=== PATIENT | female | born 1945 | race Caucasian/White ===

== ENCOUNTER 2016-06-02 12:18 | Inpatient (IN) | payer MEDICARE, BC ==
[~2016-06-02] VITALS: Ht 172.7 cm; Wt 81.8 kg
[~2016-06-02 12:18] MED LIST: AMBIEN10 MG PO; CELEXA20 MG PO; COZAAR50 MG PO; DILANTIN100 MG PO; FOLIC ACID1 MG PO; JANUMET XR 50-1 EACH PO; LEVOXYL125 MCG PO; MEDROL DOSE PACK4 MG PO; METHOTREXATE2.5 MG PO
[2016-06-02 13:14] LABS: BASOPHILS 0.2 % (0.0-2.0); EOSINOPHILS 1.9 % (0-7); HEMATOCRIT 40.2 % (36.0-48.0); HEMOGLOBIN 13.7 g/dL (12-16); IMMATURE GRANULOCYTES 0.3 % (0-5); LYMPHOCYTES 10.4 % (15-50); MCH 30.1 pg (26.0-34.0); MCHC 34.1 g/dL (31.0-37.0); MCV 88.4 fL (80.0-100.0); MEAN PLATELET VOLUME 11.8 fL (7.4-10.4); MONOCYTES 8.8 % (2-11); NEUTROPHILS 78.4 % (40-80); RBC 4.55 10x6/uL (4.00-5.40); RDW 15.2 % (11.5-14.5); WBC 11.8 10x3/uL (4.8-10.8)
[2016-06-02 13:14] LABS: UDS - AMPHET NEGATIVE QUAL (NEGATIVE); UDS - BARB NEGATIVE QUAL (NEGATIVE); UDS - BENZO NEGATIVE QUAL (NEGATIVE); UDS - COCAINE NEGATIVE QUAL (NEGATIVE); UDS - METH NEGATIVE QUAL (NEGATIVE); UDS - OPIATE NEGATIVE QUAL (NEGATIVE); UDS - PCP NEGATIVE QUAL (NEGATIVE); UDS - THC NEGATIVE QUAL (NEGATIVE)
[2016-06-02 13:30] LABS: ALBUMIN 3.9 g/dL (3.4-5.0); ALKALINE PHOSPHATASE 104 U/L (46-116); ALT (SGPT) 35 U/L (10-68); BILIRUBIN - TOTAL 0.49 mg/dL (0.2-1.3); CALC OSMOLALITY 288 mosm/kg (275-300); CALCIUM 9.1 mg/dL (8.5-10.1); CARBON DIOXIDE 26.2 mmol/L (21.0-32.0); CHLORIDE - SERUM 103 mmol/L (98-107); CREATININE - SERUM 1.8 mg/dL (0.6-1.3); GLUCOSE 209 mg/dL (74-106); PLATELET COUNT 193 10x3/uL (130-400); POTASSIUM - SERUM 4.2 mmol/L (3.5-5.1); PROTEIN - SERUM 8.1 g/dL (6.4-8.2); SODIUM 139 mmol/L (136-145); UREA NITROGEN 27 mg/dL (7-18); eGFR NON AFRICAN AMERICAN 29 mL/min (90-120)
[2016-06-02 13:31] LABS: ALCOHOL - BLOOD (MEDICAL) < 3.0 mg/dL (0.0-10.0)
[2016-06-02 13:42] LABS: APPEARANCE CLEAR (CLEAR); BILIRUBIN NEGATIVE (NEGATIVE); COLOR YELLOW (YELLOW); GLUCOSE 100 mg/dL (NEGATIVE); KETONE NEGATIVE (NEGATIVE); LEUKOCYTE ESTERASE 1+ (NEGATIVE); NITRITE NEGATIVE (NEGATIVE); PROTEIN TRACE mg/dL (NEGATIVE); UROBILINOGEN NORMAL (NORMAL); WHITE CELLS - URINE 25-50 /hpf (0-5)
[2016-06-02 13:43] LABS: BACTERIA FEW /hpf (NONE SEEN); EPITHELIAL CELLS 0-5 /hpf (0-5)
--- NOTE | 2016-06-02 16:48 | NUR ---
MRI CHANGED TO A WITHOUT DUE TO GFR [address] SAVAGE.
--- NOTE | 2016-06-02 17:15 | NUR ---
PATIENT RECEIVED TO FLOOR VIA WHEELCHAIR. PATIENT ALERT IN BED. CONFUSED TO TIME AND SITUATION. AT BEDSIDE. YELLOW FALL RISK BAND PLACED ON PATIENT. SIDE RAILS UP X2. BED IN LOW POSITION. CALL LIGHT IN REACH. MARY ALARM ON. TELEMETRY PLACED ON PATIENT. MAINTENANCE DIRECTOR REPORTS 76 NSR
--- NOTE | 2016-06-02 17:20 | NUR ---
UNSURE OF WHAT CURRENT MEDICATIONS PATIENT TAKES. STATES HE GAVE HER BOTTLES TO THE ER. INCOMPLETE LIST IN ER RECORD. ASKED TO PLEASE BRING BOTTLES AT HIS CONVIENCE SO WE COULD GET A COMPLETE LIST. STATES UNDERSTANDING
[2016-06-02 17:21] VITALS: BP 153/63; Ht 172.7 cm; Wt 81.8 kg
--- NOTE | 2016-06-02 18:24 | NUR ---
ALERT IN BED VISITING WITH FAMILY. RESPIRATIONS EVEN AND UNLABORED. IVF INITIATED PER ORDER. ACCU CHECK 163. INSULIN PER SLIDING SCALE. DENIES NEEDS. SIDE RAILS UP X2. BED IN LOW POSITION. CALL LIGHT IN REACH. MARY ALARM ON.
--- NOTE | 2016-06-02 20:00 | NUR ---
REC'D IN BED WITH EYES CLOSED EASILY TO AROUSED WHEN NAME IS CALLED. RESP EVEN AND UNLABORED WITH NO DISTRESS NOTED. NO C/O NOTED OR VOICED. C/L IN REACH AT BEDSIDE.
[2016-06-02 22:19] VITALS: BP 136/62
--- NOTE | 2016-06-03 01:38 | NUR ---
WAS INFORMED BY LAB THAT ORDERS FOR RAPID INFLUENZA AND URINALYSIS NEED TO BE RE-ORDERS FOR THE FLOOR INSTEAD OF ER. ORDERS WAS CHANGES AT THIS TIME. C/L IN REACH AT BEDSIDE.
--- NOTE | 2016-06-03 02:07 | NUR ---
EYES CLOSED RESPIRATIONS WITH EASE AND UNLABORED. SR UP X2 CALL LIGHT WITHINREACH.
[2016-06-03 03:29] VITALS: BP 141/57
[2016-06-03 05:26] LABS: BASOPHILS 0.1 % (0.0-2.0); EOSINOPHILS 2.4 % (0-7); HEMATOCRIT 36.5 % (36.0-48.0); HEMOGLOBIN 12.3 g/dL (12-16); IMMATURE GRANULOCYTES 0.1 % (0-5); LYMPHOCYTES 11.1 % (15-50); MCH 29.6 pg (26.0-34.0); MCHC 33.7 g/dL (31.0-37.0); MEAN PLATELET VOLUME 11.2 fL (7.4-10.4); MONOCYTES 10.5 % (2-11); NEUTROPHILS 75.8 % (40-80); PLATELET COUNT 165 10x3/uL (130-400); RBC 4.15 10x6/uL (4.00-5.40); RDW 15.5 % (11.5-14.5)
[2016-06-03 05:31] LABS: WBC 8.4 10x3/uL (4.8-10.8)
[2016-06-03 06:15] LABS: ANION GAP 22.4 mmol/L (8-16); CALCIUM 8.6 mg/dL (8.5-10.1); CARBON DIOXIDE 24.6 mmol/L (21.0-32.0); CREATININE - SERUM 1.9 mg/dL (0.6-1.3)
[2016-06-03] MEDS ORDERED: PREMARIN45 GM VG (07:44)
[2016-06-03] MEDS ORDERED: PROTONIX40 MG PO (07:44)
[2016-06-03] MEDS ORDERED: RELAFEN500 MG PO (07:45)
[2016-06-03] MEDS ORDERED: JANUVIA100 MG PO (07:46)
[2016-06-03] MEDS ORDERED: [UNRECOGNIZED DRUG - OTHER] PO (07:47)
[2016-06-03 07:52] VITALS: BP 135/56
[2016-06-03 08:53] LABS: ERYTHROCYTE SEDIMENTATION RATE 10 mm/hr (0-30)
--- NOTE | 2016-06-03 09:35 | NUR ---
NOTIFIED DR. SANCHEZ UNABLE TO DO CTA CREATNINE 1.9. NO NEW ORDERS. CALL LIGHT WITHIN REACH.
[2016-06-03 11:23] VITALS: BP 123/50
--- NOTE | 2016-06-03 12:30 | NUR ---
PATIENT GETTING US AT THIS TIME. NO COMPLAINTS. FAMILY AT BEDSIDE. CALL LIGHT WITHIN REACH.
[2016-06-03 14:30] LABS: APPEARANCE HAZY (CLEAR); BILIRUBIN NEGATIVE (NEGATIVE); COLOR YELLOW (YELLOW); GLUCOSE NEGATIVE (NEGATIVE); KETONE NEGATIVE (NEGATIVE); LEUKOCYTE ESTERASE 1+ (NEGATIVE); NITRITE NEGATIVE (NEGATIVE); PROTEIN NEGATIVE (NEGATIVE); SPECIFIC GRAVITY 1.015 (1.005-1.020); UROBILINOGEN NORMAL (NORMAL)
[2016-06-03 14:31] LABS: BACTERIA FEW /hpf (NONE SEEN); EPITHELIAL CELLS 0-5 /hpf (0-5); MUCUS <1+ /lpf (NONE SEEN)
[2016-06-03 16:17] VITALS: BP 152/65
--- NOTE | 2016-06-03 18:33 | NUR ---
PATIENT SITTING UP IN BED WITH NO COMPLAINTS AT THIS TIME. IV INTACT. BED ALARM ON. CALL LIGHT WITHIN REACH.
[2016-06-03 19:00] VITALS: BP 139/62
--- NOTE | 2016-06-03 20:44 | NUR ---
PATIENT RESTING IN BED. ALERT AND ORIENTED. NO SIGNS OF DISTRESS NOTED. NO CONFUSION AT THIS TIME. SCHEDULED MEDS GIVEN. SHIFT ASSESSMENT COMPLETED. DENIES ANY NEEDS AT THIS TIME. BED LOW. CALL LIGHT IN REACH
[2016-06-04] VITALS: BP 159/62
[2016-06-04 04:00] VITALS: BP 148/67
--- NOTE | 2016-06-04 04:00 | NUR ---
PATIENT SLEEPING WITH NO DISTRESS NOTED. AGREE WITH BRICKLAYER SUPERVISOR ASSESSMENT.
[2016-06-04 04:23] LABS: BASOPHILS 0.2 % (0.0-2.0); EOSINOPHILS 3.9 % (0-7); HEMATOCRIT 35.5 % (36.0-48.0); HEMOGLOBIN 11.9 g/dL (12-16); IMMATURE GRANULOCYTES 0.3 % (0-5); LYMPHOCYTES 18.2 % (15-50); MCH 29.3 pg (26.0-34.0); MCHC 33.5 g/dL (31.0-37.0); MCV 87.4 fL (80.0-100.0); MEAN PLATELET VOLUME 10.6 fL (7.4-10.4); MONOCYTES 20.6 % (2-11); NEUTROPHILS 56.8 % (40-80); PLATELET COUNT 154 10x3/uL (130-400); RBC 4.06 10x6/uL (4.00-5.40); RDW 15.2 % (11.5-14.5)
[2016-06-04 04:24] LABS: WBC 5.8 10x3/uL (4.8-10.8)
[2016-06-04 04:37] LABS: ALBUMIN 3.3 g/dL (3.4-5.0); BILIRUBIN - TOTAL 0.45 mg/dL (0.2-1.3); CALCIUM 8.5 mg/dL (8.5-10.1); CARBON DIOXIDE 26.7 mmol/L (21.0-32.0); CREATININE - SERUM 1.5 mg/dL (0.6-1.3); POTASSIUM - SERUM 3.7 mmol/L (3.5-5.1); PROTEIN - SERUM 7.1 g/dL (6.4-8.2)
--- NOTE | 2016-06-04 07:00 | NUR ---
REPORT RECIEVED ASSUMED CARE. PATIENT IN BED WITH IV INTACT. NO COMPLAINTS. CALL LIGHT WITHIN REACH.
[2016-06-04 08:05] VITALS: BP 182/76
[2016-06-04 12:15] VITALS: BP 195/84
--- NOTE | 2016-06-04 12:27 | NUR ---
Patient Name: RADHA PABLO Admission Status: ER Accout number: [id number] Admission Date: 06-03-2016 : 1943 Admission Diagnosis: Attending: ROEL Current LOS: 1 Anticipated DC Date: 06-06-2016 Planned Disposition: Home or Self Care Primary Insurance: MEDICARE A & B Discharge Planning Comments: CM MET WITH PATIENT AND SPOUSE (DUANE) REGARDING D/C NEEDS AND PLANS. PATIENT STATED SHE LIVES WITH HER AND HE WILL DRIVE HER HOME AT DISCHARGE. PATIENT STATED THERE ARE 5 STEPS W/RAILS TO ENTER HOME AND NO STAIRS INSIDE. PATIENTS PCP IS DR. RAHMAN AND PHARMACY IS [facility] [address]. PATIENT STATED SHE IS INDEPENDENT WITH HER CARE AND HAS A WALKER, CANE, AND GLUCOMETER (CKS. DAILY) AT HOME. PATIENT HAS NOT HAD HOME HEALTH AND STATED SHE DOES NOT NEED IT AT DISCHARGE. CM WILL CONTINUE TO FOLLOW PATIENT WITH DISCHARGE NEEDS AND PLANS. PCP DR. MARIE [facility]IR[facility]AND [address] DUANE (SPOUSE) [phone] Radio Program Checker: Margret Abraham Is the patient Alert and Oriented? Yes 0 * How many steps to enter\exit or inside your home? 5 W/RAILS 0 * PCP DR. SANCHEZ 0 * Pharmacy [facility] [address] 0 * Preadmission Environment Home with Family 0 * ADLs Independent 0 * Equipment Cane Glucometer Walker 0 * List name and contact numbers for known caregivers / representatives who currently or will assist patient after discharge: DUANE (SPOUSE) [phone] 0 * Community resources currently utilized None 0 * Additional services required to return to the preadmission environment? Yes 0 * Can the patient safely return to the preadmission environment? Yes 0 * Has this patient been hospitalized within the prior 30 days at any hospital? No 0 Grand Total: 0
--- NOTE | 2016-06-04 14:07 | NUR ---
OT NOTE: PERFORMED BED MOB WITH SPV; TRANSFERS WITH SPV; SET UP WITH FEEDING AND DONNING SOCKS. PT WANTS TO GO HOME BENJI. PT DOING WELL; REPORTS THAT HER WILL BE PICKING HER UP
--- NOTE | 2016-06-04 15:30 | NUR ---
PATIENT IV LEAKING. REMOVED AT THIS TIME WITH CATH TIP INTACT. PATIENT REQUESTING TO LEAVE OUT FOR NOW SINCE IV ABX ARE NOW PO. EXPLAINED TO PATIENT I WOULD LEAVE OUT UNLESS NEEDED FOR SOME OTHER MEDS. VERBALIZED UNDERSTANDING. CALL LIGHT WITHIN REACH. PATIENT DRINKING PLENTY OF FLUIDS AND EATING OK.
[2016-06-04 16:01] VITALS: BP 169/75
--- NOTE | 2016-06-04 18:32 | NUR ---
OT NOTE: PT COMPLETED DYNAMIC SITTING BALANCE WITH GROSS MOTOR AXS. PT COMPLETED BUE AROM EXS IN ALL PLANES OF MOTION. PT COMPLETED SIMPLE GROOMING TASK WITH SET UP. THANK YOU, EVA MELENDEZ/John
--- NOTE | 2016-06-04 18:55 | NUR ---
PATIENT IN BED WITH NO COMPLAINTS AT THIS TIME. BA ON. CALL LIGHT WITHIN REACH.
--- NOTE | 2016-06-04 19:00 | NUR ---
PATIENT IN BED WATCHING TV. HOB 30 DEGREES. AAOX4. RR EVEN AND UNLABORED. 0 S/S OF DISTRESS. DENIES ANY PAIN. MARY ALARM ON. SRX2. BED LOW. CALL LIGHT WITHIN REACH.
[2016-06-04 20:00] VITALS: BP 184/66
--- NOTE | 2016-06-04 22:40 | NUR ---
ASSESSMENT COMPLETE. NIGHTTIME MEDS GIVEN. PREMARIN HELD BECAUSE PATIENT STATES SHE ONLY USES IT ONCE OR TWICE A MONTH. NO OTHER NEEDS AT THIS TIME.
[2016-06-05] VITALS: BP 150/60
--- NOTE | 2016-06-05 03:00 | NUR ---
PATIENT SLEEPING WITH NO DISTRESS NOTED. CALL LIGHT WITHIN REACH.
[2016-06-05 04:00] VITALS: BP 154/73
--- NOTE | 2016-06-05 08:02 | HP ---
PATIENT: RADHA PABLO MEDICAL RECORD: [id number] ACCOUNT: [id number] LOCATION:D.MS [id number] : 43 ADMISSION DATE: 06/03/16 HISTORY AND PHYSICAL EXAMINATION HISTORY OF PRESENT ILLNESS: A 70-year-old female presented to the Emergency Room with confusion, word searching, headache. She has a history of a brain bleed. She developed symptoms last night with word searching. Woke up this morning, had symptoms persisting. No falls, no recent trauma reported. PAST SURGICAL HISTORY: Colonoscopy in 2009, hysterectomy in 1978, history of 4 pregnancies, 3 deliveries. PAST MEDICAL HISTORY: Significant for anemia, arthritis, back pain, easy bruising or bleeding. Prior blood transfusions, type 2 diabetes, hypertension, hyperlipidemia, hypothyroidism, insomnia, and chronic kidney disease. SOCIAL HISTORY: Denies alcohol, admits significant caffeine use. Former smoker, quit in 1999, was a 5-jzgw-a-day smoker, retired hairdresser, 10th grade education, . FAMILY HISTORY: Son with substance abuse, mother with hypertension, sister with hypertension, brother with heart disease, daughter with migraines, mother with CHF. REVIEW OF SYSTEMS: CONSTITUTIONAL: No acute change in weight or appetite. HEENT: No cephalgia, visual changes, tinnitus, epistaxis or dysphagia. CARDIOVASCULAR: Denies chest pain or palpitations. PULMONARY: Denies night sweats. Denies hemoptysis, and denies shortness of breath. GASTROINTESTINAL: Denies hematemesis, hematochezia or melena. GENITOURINARY: Denies dysuria. MUSCULOSKELETAL: No acute changes. ENDOCRINE: Denies polyuria, polydipsia or polyphagia. PHYSICAL EXAMINATION: VITAL SIGNS: Temperature 97.3, blood pressure is 192/94, heart rate 78, respirations 14, and O2 sats 97% on room air. GENERAL: Alert and oriented, symptoms improved, but still persist. HEENT: Normocephalic and atraumatic. Eyes: Pupils are equally round and reactive to light and accommodation. Extraocular muscles intact. Conjunctiva was not injected. Ears: Canals patent, TMs are intact. Nose: Nares patent without drainage. Throat: No erythema, no exudates. NECK: Supple. No lymphadenopathy, no JVD. HEART: Regular rate and rhythm. No S3, S4. There is a left carotid bruit. LUNGS: Clear to auscultation bilaterally. Breathing is nonlabored. ABDOMEN: Soft and nontender. Bowel sounds all 4 quadrants. EXTREMITIES: Present times 4, no edema. NEUROLOGIC: Intact. SKIN: Warm and dry. No rash CT of the head without contrast, no acute intracranial abnormality. LABORATORY DATA: Urinalysis: Yellow, clear, trace protein, 1+ leukocyte esterase, few bacteria, 25-50 wbc's. CBC: White count 11.8, hemoglobin 13.7, HISTORY AND PHYSICAL [id number] PABLORADHA hematocrit 40.2, and platelets 193. Chemistry shows a sodium of 139, potassium of 4.2, chloride 103, bicarbonate 26.2, BUN is 27, creatinine 1.8, and glucose 209. Urine drug screen is negative. Alcohol less than 3. ASSESSMENT AND PLAN: 1. Acute mental status change. Transient ischemic attack symptoms. Left carotid bruit. CT negative. MRI results pending. We will obtain carotid ultrasound. Await results of the MRI before blood thinners started with history of prior subarachnoid bleed. 2. Diabetes mellitus. Sliding scale insulin. 3. Hypertension. Resume medications. 4. Hypothyroid. Continue current medications. Neurology consulted. 5. Urinary frequency, abnormal UA. We will empirically cover with Rocephin with the leukocytosis. Culture urine. TRANSINT:[id number] Voice Confirmation ID: [id number] DOCUMENT ID: [id number] ANTWON FARIAS DO at 0802 CC: [id number] DICTATION DATE: 06/02/161735 CREDIT COUNSELOR: 06/02/16 1859 ADM IN [id number] [place] [address]
--- NOTE | 2016-06-05 08:08 | NUR ---
[address] SANCHEZ AND INFORMED HIM THAT MRI IS DOWN UNTIL APPROXIMATELY 1600 TODAY. HE STATED HE HAD ORDERED MRI YESTERDAY VIA TELEPHONE AND THE ORDER WAS NOT ENTERED INTO THE SYSTEM. INFORMED HIM PAITENT WOULD BE DONE SOON MRI WAS OPERATIONAL AGAIN TODAY.
[2016-06-05 08:29] VITALS: BP 175/89
--- NOTE | 2016-06-05 09:10 | NUR ---
SCHEDULED MEDICATIONS ADMINISTERED WITHOUT DIFFICULTY AT THIS TIME. PT DENIES PAIN. AMBULATES AND SELF POSITIONS INDEPENDENTLY FOR COMFORT. ASSESSMENT PERFORMED PER FLOWSHEET. DENIES QUESTIONS OR CONCERNS AT THIS TIME. HAS NO IV ACCESS AT THIS TIME. CALL LIGHT IN REACH, WILL CONTINUE WITH PLAN OF CARE.
--- NOTE | 2016-06-05 11:40 | NUR ---
DENIES NEEDS AT THIS TIME. CALL LIGHT IN REACH, WILL CONTINUE WITH PLAN OF CARE.
[2016-06-05 12:28] VITALS: BP 194/83
--- NOTE | 2016-06-05 13:16 | NUR ---
OT NOTE: PT WAS SITTING UP IN CHAIR, FINISHING HER LUNCH. PT REPORTED THAT SHE FELT WELL BUT WANTED TO GO HOME. SHE REPORTED THAT SHE WAS SUPPOSED TO BE GETTING ANOTHER TEST ON HER ARTERIES BEFORE SHE WENT HOME. PT ABLE TO AMB AD TIFFANIE THROUGHOUT ROOM WITH GOOD BALANCE; PERFORMED BALANCE TESTING AND SHE PERFORMED VERY WELL. PERFORMED BED MOB INDEP; TOILETING INDEP. FROM OT STAND POINT SHE IS READY TO RETURN HOME
--- NOTE | 2016-06-05 13:55 | NUR ---
SPOKE WITH DELVIS THE NURSE FOR DR SANCHEZ AT THIS TIME REGARDING BLOOD PRESSURE.
--- NOTE | 2016-06-05 14:16 | NUR ---
JOSEPH CRAMER ADMINISTERED PER ONE TIME ORDER BY DR SANCHEZ FOR HYPERTENSION. PT DENIES FURTHER NEEDS AT THIS TIME. UP IN CHAIR INDEPENDENTLY. CALL LIGHT IN REACH, WILL CONTINUE WITH PLAN OF CARE.
[2016-06-05 16:28] VITALS: BP 174/55
--- NOTE | 2016-06-05 17:30 | NUR ---
OT NOTE: PT COMPLETED BED MOB AND SITTING BALANCE WITH SUPV. PT COMPLETED BUE AROM EXERCISES . PT COMPLETED GROOMING TASK WITH SET UP. THANK YOU, EVA MELENDEZ/John
[2016-06-05 19:00] VITALS: BP 171/86
--- NOTE | 2016-06-05 19:00 | NUR ---
BEDSIDE REPORT RECEIVED AND CARE OF PT ASSUMED. PT LYING IN SUPINE POSITION WATCHING TV. NO IV. TELEMETRY IN PLACE AND PT READING SR AT THIS ASSESSMENT. WILL MONITOR GUI FOR NEEDS.
--- NOTE | 2016-06-05 21:03 | NUR ---
HS MEDICATIONS GIVEN. WILL CONTINUE TO MONITOR [facility] FOR NEEDS.
--- NOTE | 2016-06-05 23:52 | NUR ---
FSBS 100 THIS CHECK REQUIRING NO COVERAGE PER SLIDING SCALE.
--- NOTE | 2016-06-06 00:35 | NUR ---
PT RESTING QUIETLY WITH UNLABORED BREATHING. TELEMETRY REPORTS 55 SB AT THIS ASSESSMENT.
[2016-06-06 05:02] LABS: BASOPHILS 0.7 % (0.0-2.0); EOSINOPHILS 5.2 % (0-7); HEMATOCRIT 37.8 % (36.0-48.0); HEMOGLOBIN 12.9 g/dL (12-16); IMMATURE GRANULOCYTES 0.2 % (0-5); LYMPHOCYTES 43.2 % (15-50); MCH 29.6 pg (26.0-34.0); MCHC 34.1 g/dL (31.0-37.0); MCV 86.7 fL (80.0-100.0); MEAN PLATELET VOLUME 11.5 fL (7.4-10.4); MONOCYTES 10.9 % (2-11); NEUTROPHILS 39.8 % (40-80); PLATELET COUNT 187 10x3/uL (130-400); RBC 4.36 10x6/uL (4.00-5.40); RDW 14.8 % (11.5-14.5); WBC 5.8 10x3/uL (4.8-10.8)
[2016-06-06 05:32] LABS: ANION GAP 15.5 mmol/L (8-16); CALCIUM 8.5 mg/dL (8.5-10.1); CARBON DIOXIDE 23.7 mmol/L (21.0-32.0); CREATININE - SERUM 1.5 mg/dL (0.6-1.3); POTASSIUM - SERUM 3.2 mmol/L (3.5-5.1)
[2016-06-06] MEDS ORDERED: MACROBID100 MG PO (07:20)
[2016-06-06] MEDS ORDERED: COZAAR50 MG PO (07:21)
[2016-06-06] MEDS ORDERED: PLAVIX75 MG PO (07:23)
[2016-06-06] MEDS ORDERED: BAYER CHEWABLE81 MG PO (07:26)
--- NOTE | 2016-06-06 07:30 | NUR ---
SITTING IN BED, WAITING TO BE DISCHARGED, BED LOWEST POSITION, CALL LIGHTIN REACH, ASSESSMENT COMPLETE
--- NOTE | 2016-06-06 09:00 | NUR ---
ALERT AND ORIENTED AT THIS TIME. DENIES NEEDS AT THIS TIME. PT READY TO D/C HOME. CALL LIGHT IN REACH, WILL CONTINUE WITH PLAN OF CARE.
--- NOTE | 2016-06-06 09:51 | NUR ---
CM REASSESSMENT NOTE: PATIENT IS DISCHARGING HOME TODAY- FAMILY DRIVING HER. PATIENT DENIED HOME HEALTH OR ANY OTHER NEEDS FOR DISCHARGE.
[2016-06-06 09:52] VITALS: BP 134/60
--- NOTE | 2016-06-06 10:25 | NUR ---
DISCHARGE PAPERS AND INSTRUCTIONS GIVEN TO PT AND SPOUSE, QUESTIONS ANSWERED, DISCHARGED PER WC WITH BELONGINGS
--- NOTE | 2016-06-11 06:59 | EEG ---
PATIENT:RADHA PABLO DATE OF SERVICE: 06/03/16 MEDICAL RECORD: [id number] DATE OF : 41 LOCATION:D.220 D.MS ADMISSION DATE: 06/03/16 REFERRING PHYSICIAN: INTERPRETING PHYSICIAN: OSMAR BLAIR MD DATE OF SERVICE: 06/03/2016 Electroencephalographic Report Referred as an inpatient by myself, currently in room 2204. ELECTROENCEPHALOGRAM NUMBER: [id number]. DATE OF EXAMINATION: 06/03/2016 at 0800. TECHNICAL DATA: This electroencephalographic recording consists of approximately 20 minutes of data collection utilizing the international 10/20 system of electrode placement and both referential and non-referential montages. Sixteen channels of electrocerebral recording are accompanied by a 17th channel dedicated to the electrocardiographic rhythm and 2 channels of electromyographic recording. Recording is performed in the awake and drowsy states utilizing activation by photic stimulation. ELECTROENCEPHALOGRAPHIC DATA: The awake state comprises approximately 60% of the recorded electrocerebral activity. Electromyographic artifact is prominent and rapid eye movements are seen. The posterior dominant background consists of a symmetric, rhythmic, waxing and waning 7-8 Hz alpha activity, which is suppressed by eye opening. The drowsy state comprises the remaining portion of the recorded electrocerebral activity. Electromyographic artifact is diminished and rapid eye movements are not seen. The posterior dominant background is relatively suppressed. No abnormal or focal slowing is identified. No epileptiform discharges are seen. Photic stimulation induces no abnormal change in the recorded electrocerebral activity. INTERPRETATION: Normal (awake and drowsy). This is a normal electroencephalographic recording. TRANSINT:[id number] Voice Confirmation ID: [id number] DOCUMENT ID: [id number] OSMAR BLAIR MD at 0659 CC: [id number] DICTATION DATE: 06/05/16 0639 PAINTING MANAGER: 06/05/16 0654 DIS IN 06/06/16 [id number] [place] [address]
--- NOTE | 2016-06-14 12:24 | EC ---
PATIENT:RADHA PABLO DATE OF SERVICE: 06/03/16 SEX: F MEDICAL RECORD: [id number] DATE OF : 41 LOCATION:D.MS [facility] AGE OF PATIENT: 70 ADMISSION DATE: 06/03/16 REFERRING PHYSICIAN: INTERPRETING PHYSICIAN: CHRISTINA BOWER M.D. ECHOCARDIOGRAM REPORT ECHO CHARGES 4 ECHO COMPLETE CLINICAL DIAGNOSIS: LEFT MCA TIA ECHOCARDIOGRAPHIC MEASUREMENTS (adult normal given) AC root (d.<3.7cm) 3.1 LV Septum d (<1.2 cm> 1.8 Valve Excursion 1.6 LV Septum (systole) 2.5 Left Atria (s.<4.0cm> 4.2 LVPW d(<1.2cm) 1.6 RV (d.<2.3cm) 2.3 LVPW (sytole) 2.3 LV diastole(<5.6CM) 5.3 MV E-F(>70mm/sec) LV systole 2.5 LVOT Diameter 2.0 MV exc.(>10mm) Est.ejection fraction (50-75%) Pericardial Effusion N DOPPLER: LVIT A 66.0 E 90.0 LA RVSP 43.0 LVOT 94.0 AOP1/2T Asc. Ao 173 RVOT 69.0 RA PA 107 AV Gradient Peak 12.0 AV Mean 6.5 AV Area 1.8 MV Gradient Peak 4.5 MV Mean 1.5 MV Area COMMENTS: Manager Clinical Applications: Regan PEREAOE Reimbursement Auditor:Shawna Bower TAPE# PACS DATE OF SERVICE: 06/03/2016 REFERRING PHYSICIAN: Mark Ferrer DO. INDICATION: CVA. DESCRIPTION: Left ventricle demonstrates left ventricular hypertrophy. No wall motion abnormalities are seen. Estimated ejection fraction is 55%. There is no evidence of any mass or thrombus in the left ventricle apex. Mitral valve is structurally normal. There is mild regurgitation seen. Left atrium is mildly ECHOCARDIOGRAM REPORT [id number] RADHA PABLO dilated. The aortic valve is trileaflet. I do not see stenosis or regurgitation. Right ventricle is normal in size and function. Tricuspid valve is structurally normal. There is mild regurgitation noted. Right ventricular systolic pressure is elevated at 43 mmHg. There is no pericardial effusion noted. IMPRESSION: 1. Left ventricular hypertrophy with preserved ejection fraction of 55%. There is no evidence of any mass or thrombus in the left ventricle apex. 2. Mild mitral regurgitation. 3. Mild tricuspid regurgitation with elevated pulmonary pressures. 4. No evidence of atrial septal defect, ventricular septal defect or patent foramen ovale. TRANSINT:[id number] Voice Confirmation ID: [id number] DOCUMENT ID: [id number] CHRISTINA BOWER M.D. at 1224 CC: [id number] DICTATION DATE: 06/04/16826 WIRE HARNESS DESIGN ENGINEER: 06/04/1659 DIS IN 06/06/16 [address] [place] [address]
== END 2016-06-06 10:27 | disposition home or self-care (01) | DRG 69 ==
LOC: D.ER 12:18 → D.MS 15:28 → OBSVTIME 15:29 → D.MS 06-03 13:02
PROVIDERS: Emergency Medicine; Family Medicine; ADMIT Family Medicine
DX: G45.9 Transient cerebral ischemic attack, unspecified (principal); I13.0 Hypertensive heart and chronic kidney disease with heart failure and stage 1 through stage 4 chronic kidney disease, or unspecified chronic kidney disease; R35.0 Frequency of micturition; E78.5 Hyperlipidemia, unspecified; E03.9 Hypothyroidism, unspecified; G47.00 Insomnia, unspecified; F51.9 Sleep disorder not due to a substance or known physiological condition, unspecified; E11.22 Type 2 diabetes mellitus with diabetic chronic kidney disease; N18.9 Chronic kidney disease, unspecified; R13.11 Dysphagia, oral phase

== ENCOUNTER → 2016-06-12 10:56 | Outpatient (CLI) | payer MEDICARE, BC ==
[2016-06-02 17:21] VITALS: BMI 27.4
[~2016-06-12 10:56] MED LIST changes: +BAYER CHEWABLE81 MG PO; +JANUVIA100 MG PO; +MACROBID100 MG PO; +PLAVIX75 MG PO; +PREMARIN45 GM VG; +PROTONIX40 MG PO; +RELAFEN500 MG PO; +[UNRECOGNIZED DRUG - OTHER] PO
== END | disposition home or self-care (01) ==
LOC: D.MRI 10:56
DX: I65.29 Occlusion and stenosis of unspecified carotid artery (principal)

== ENCOUNTER → 2016-10-17 10:48 | Outpatient (CLI) | payer MEDICARE, BC ==
[2016-06-02 17:21] VITALS: BMI 27.4
== END | disposition home or self-care (01) ==
LOC: D.MRI 10:48
DX: M54.2 Cervicalgia (principal)

== ENCOUNTER → 2016-10-23 09:49 | Outpatient (CLI) | payer MEDICARE, BC ==
[2016-06-02 17:21] VITALS: BMI 27.4
== END | disposition home or self-care (01) ==
LOC: D.US 09:49
DX: N18.9 Chronic kidney disease, unspecified (principal)

== ENCOUNTER → 2016-11-01 20:42 | Outpatient (CLI) | payer MEDICARE, BC ==
[2016-06-02 17:21] VITALS: BMI 27.4
== END | disposition home or self-care (01) ==
LOC: D.MAMMO 15:00
DX: Z12.31 Encounter for screening mammogram for malignant neoplasm of breast (principal)

== ENCOUNTER → 2017-07-08 10:59 | Outpatient (CLI) | payer MEDICARE, BC ==
[2016-06-02 17:21] VITALS: BMI 27.4
[~2017-07-08 10:59] MED LIST changes: +PRAVACHOL40 MG PO
== END | disposition home or self-care (01) ==
LOC: D.US 10:59
DX: I12.9 Hypertensive chronic kidney disease with stage 1 through stage 4 chronic kidney disease, or unspecified chronic kidney disease (principal); N18.4 Chronic kidney disease, stage 4 (severe); E11.22 Type 2 diabetes mellitus with diabetic chronic kidney disease; N25.0 Renal osteodystrophy; Z68.25 Body mass index [BMI] 25.0-25.9, adult

== ENCOUNTER 2017-08-06 10:52 | Outpatient (CLI) | payer MEDICARE, BC ==
[~2017-08-06] VITALS: Ht 172.7 cm; Wt 75.0 kg
--- NOTE | ~2017-08-06 | HEMODYNAMI ---
PATIENT:RADHA PABLO MEDICAL RECORD: [id number] : 41 LOCATION:[facility] ADMISSION DATE: 08/06/17 Generatedon:08/06/201713:35 Patient name: RADHA PABLO Patient #: [id number] SSN: DO B: 1945 Date of study: 08/06/2017 Page: Of Hemodynamic Procedure Report Patient Data Patient Demographics Procedure consent was obtained First Name: RADHA Gender: Female Last Name: BEV : 1945 [facility] Initial: KRIS Age: 71 year(s) Patient #: [id number] Race: Unknown Additional ID: [id number] Contact details Address: [facility] [address] State: [place] City: [place] Zip code: [address] Past Medical History Allergies Allergen Reaction Date Comments Reported Codeine 08/06/2017 Admission Admission Data Admission Date: 08/06/2017 Admission Time: 10:52 Procedure Procedure Types Cath Procedure Diagnostic Procedure LHC LHC w/Coronaries Procedure Description Procedure Date Procedure Date: 08/06/2017 Procedure Start Time: 13:11 Procedure End Time: 13:34 Procedure Staff Name Function Mookie Bower MD Performing Physician Payton Dolan RT Scrub Sudhakar Gomez RT Monitor Jorden Lobato RN Nurse Procedure Data Cath Procedure Fluoroscopy Diagnostic fluoroscopy Total fluoroscopy Time: 6.8 time: 6.8 min min Diagnostic fluoroscopy Total fluoroscopy dose: 615 dose: 615 mGy mGy Contrast Material Contrast Material Type Amount (ml) Isovue 300 53 Entry Location Entry Primary Successful Side Size Upsize Upsize Entry Closure Larry ccessful Closure Location (Fr) 1 (Fr) 2 (Fr) Remarks Device Remarks Femoral Right 6 Fr Mechanical artery Short Compression Estimated blood loss: 10 ml Diagnostic catheters Device Type Used For End Catheter Placement DIAGNOSTIC [place] 110cm 5 Procedure Fr catheter ([id number]) DIAGNOSTIC AR MOD 5Fr Procedure Catheter ([id number]) Procedure Complications No complications Procedure Medications Medication Administration Route Dosage 0.9% NaCl I.V. 100 ml/hr Oxygen etCO2 Nasal cannula 2 l/min Heparin Flush Bag added to field 2 bags (1000units/500ml NS) Lidocaine 2% added to field 20 Radial Cocktail added to field 1 syringe (Verapomil 2mg/Nitro 400mcg/Heparin 1500units) Versed I.V. 1 mg Fentanyl I.V. 50 mcg Radial Cocktail I.A. 1 syringe (Verapomil 2mg/Nitro 400mcg/Heparin 1500units) Hemodynamics Rest Heart Rate: 57 (bpm) Pressure Samples Time Site Value (mmHg) Purpose Heart Use Rate(bpm) 13:17 LV 122/-4,8 Snapshot 67 13:19 AO 135/68(95) Snapshot 67 13:26 AO 170/69(107) Snapshot 52 Gradients Valve Time Site Site Mean SEP/DFP Peak To Heart Use 1 2 (mmHg) (sec/min) Peak Rate (mmHg) (bpm) Aortic 13:18 LV AO 71 Snapshots Pre Cath Intra NCS Post Cath Vital Signs Time Heart Resp SPO2 etCO2 NIBP (mmHg) Rhythm Pain Sedation Rate (ipm) (%) (mmHg) Status Level (bpm) 13:03:38 55 21 98 26.9 195/87(155) NSR 0 (11) 10(A) , No pain 13:09:15 53 15 94 31.4 165/74(136) NSR 0 (11) 10(A) , No pain 13:14:03 66 13 97 25.4 155/77(133) NSR 0 (11) 10(A) , No pain 13:18:44 69 12 90 15.7 119/71(95) NSR 0 (11) 9(A) , No pain 13:24:10 66 12 92 19.4 132/75(106) NSR 0 (11) 9(A) , No pain 13:29:25 63 14 96 21.7 173/83(136) NSR 0 (11) 9(A) , No pain 13:34:06 16.4 No Cuff NSR 0 (11) 9(A) , No pain Medications Time Medication Route Dose Verified Delivered Reason Notes Effectiveness by by 13:06:19 0.9% NaCl I.V. 100 Jorden Jorden Per ml/hr Cheryle Lobato physician RN RN 13:06:30 Oxygen etCO2 2 l/min Jorden Jorden Per Nasal Cheryle Lobato physician cannula RN RN 13:06:38 Heparin Flush added 2 bags Jorden Jorden used for Bag to Cheryle Lobato procedure (1000units/500ml field RN RN NS) 13:06:48 Lidocaine 2% added 20ml Jorden Jorden for local to vial Lorigan Lorfelipa anesthetic field RN RN 13:07:00 Radial Cocktail added 1 Jorden Jorden used for (Verapomil to syringe Cheryle Lobato procedure 2mg/Nitro RN RN 400mcg/Heparin 1500units) 13:07:55 Versed I.V. 1 mg Jorden Jorden for sedation Cheryle Lobato RN RN 13:08:06 Fentanyl I.V. 50 mcg Jorden Jorden for sedation Cheryle Lobato RN RN 13:13:18 Radial Cocktail I.A. 1 Jorden Mookie for (Verapomil syringe Cheryle Bower MD vasodilation 2mg/Nitro RN 400mcg/Heparin 1500units) Procedure Log Time Note 12:46:55 Signed procedure consent form obtained from patient. 12:46:56 Time tracking: Regular hours (M-F 7:00 - 5:00) 12:47:00 Jorden Lobato RN sent for patient. Start room use. 12:49:03 Patient allergic to Codeine 12:56:39 Patient received from Pre/Post Procedure Room to CCL 1 Alert and oriented. Tansferred to table in Supine position. 12:56:41 Warm blankets applied, and alpa hugger turned on for patient comfort. 12:56:41 Correct patient and procedure confirmed by team. 12:56:42 ECG and BP/O2 sat monitors applied to patient. 13:01:46 Vital chart was started 13:03:13 Baseline sample Acquired. 13:03:26 Rhythm: sinus bradycardia 13:03:27 Full Disclosure recording started 13:03:32 H&P Date Dictated: 08/06/2017 New H&P dictated by physician.. 13:03:33 Pre-procedure instructions explained to patient. 13:03:34 Pre-op teaching completed and patient verbalized understanding. 13:03:37 Family in patients room. 13:03:38 Patient NPO since Midnight. 13:03:41 Is the patient allergic to Iodine/contrast media? No. 13:03:43 Is patient on blood thinner?Yes 13:03:45 ACC The patient was administered the following blood thiners within the last 24 hours: ACCPlavix 13:03:47 Patient diabetic? Yes. 13:03:48 If diabetic: On Metformin? Unknown 13:03:51 Previous problem with sedation/anesthesia? No ? 13:03:52 Snore? Yes 13:03:53 Sleep apnea? No 13:03:55 Deviated septum? No 13:03:56 Opens mouth fully? Yes 13:03:57 Sticks out tongue? Yes 13:03:59 Airway obstruction? No ? 13:04:04 Dentures? Yes IN 13:04:10 Pre procedure: right dorsailis pedis pulse 1+ Palpable, but thready & weak; easily obliterated 13:04:12 Modified Sameer's test Ulnar < 7 seconds 13:04:14 Patient pain scale 0/10 ?. 13:04:19 IV patent on arrival in left forearm with 0.9% NaCl at [facility]. 13:04:21 Lab results completed and on chart. 13:04:24 Right Radial & Right Groin area was prepped with chlora-prep and draped in sterile fashion 13:04:25 Alarms reviewed by R. N. 13:04:26 Sharps counted by scrub and verified by R.N. 13:06:19 0.9% NaCl 100 ml/hr I.V. was administered by Jorden Lobato RN; Per physician; 13:06:30 Oxygen 2 l/min etCO2 Nasal cannula was administered by Jorden Lobato RN; Per physician; 13:06:38 Heparin Flush Bag (1000units/500ml NS) 2 bags added to field was administered by Jorden Lobato RN; used for procedure; 13:06:48 Lidocaine 2% 20ml vial added to field was administered by Jorden Lobato RN; for local anesthetic; 13:07:00 Radial Cocktail (Verapomil 2mg/Nitro 400mcg/Heparin 1500units) 1 syringe added to field was administered by Jorden Lobato RN; used for procedure; 13:07:02 Use device set Radial Dx or PCI 13:07:10 --------ALL STOP TIME OUT------ 13:07:11 Final Timeout: patient, procedure, and site verified with staff and physician. All members of the team are in agreement. 13:07:13 Right Radial & Right Groin site verified by team. 13:07:16 Physical assessment completed. ASA score P 2 - A patient with mild systemic disease as per Mookie Bower MD. 13:07:19 Sedation plan: IV Moderate Sedation Medication:Versed, Fentanyl 13:07:55 Versed 1 mg I.V. was administered by Jorden Lobato RN; for sedation; 13:08:06 Fentanyl 50 mcg I.V. was administered by Jorden Lobato RN; for sedation; 13:11:25 Tegaderm 4 x 4 (1626W) opened to sterile field. 13:11:26 ACIST Manifold (30016) opened to sterile field. 13:11:27 ACIST Hand Control (60920) opened to sterile field. 13:11:28 ACIST Syringe (11273) opened to sterile field. 13:11:29 Medline Cath Pack ([id number]) opened to sterile field. 13:11:29 Bag Decanter (2002S) opened to sterile field. 13:11:30 DIAGNOSTIC WIRE .035 260cm J wire (899534) opened to sterile field. 13:11:30 MBrace Wrist Support ([id number]) opened to sterile field. 13:11:37 SHEATH 6Fr Prelude Radial ([id number]) opened to sterile field. 13:11:42 Procedure started. 13:11:47 Local anesthetic to right radial artery with Lidocaine 2% by Mookie Bower MD.INITIAL ACCESS ONLY 13:13:18 Radial Cocktail (Verapomil 2mg/Nitro 400mcg/Heparin 1500units) 1 syringe I.A. was administered by Mookie Bower MD; for vasodilation; 13:13:50 A 6 Fr Short sheath was inserted into the Right Femoral artery 13:16:10 GLIDE WIRE ANGLE 260cm (IC0874) opened to sterile field. 13:16:55 A DIAGNOSTIC [place] 110cm 5 Fr catheter (651060) was advanced over the wire and used for Procedure. 13:17:00 [place] wire used to advance catheter. 13:17:43 LV angiography performed. 13:17:45 LV gram done using HOFFMAN 13:17:59 EF : 55 % 13:18:06 LV hemodynamics recorded. 13:18:11 Injector settings: Ml/sec: 10, Volume: 20, 13:21:25 LCA angiography performed. 13:23:45 Catheter exchanged over wire. 13:24:04 A DIAGNOSTIC AR MOD 5Fr Catheter ([id number]) was advanced over the wire and used for Procedure. 13:25:58 RCA angiography performed. 13:27:09 Catheter removed. 13:27:23 TR BAND Standard ([id number]) opened to sterile field. 13:27:58 Sheath removed intact; hemostasis achieved with Mechanical Compression to the Right Femoral artery. 13:28:01 Procedure ended.(Physican Out) 13:28:38 Fluoroscopy time 06.80 minutes. 13::42 Fluoroscopy dose: 615 mGy 13::42 Flurop Dose total: 615 13:28:46 Contrast amount:Isovue 300 53ml. 13:28:47 Sharps counted by scrub and verified by R.N. 13:28:50 TR band inflated with 12cc of air. 13:28:52 Post Procedure Pulses reassessed and unchanged 13:28:55 Post-procedure physical assessment completed. ASA score P 2 - A patient with mild systemic disease as per Mookie Bower MD. 13:28:58 Post procedure rhythm: unchanged. 13:29:00 Estimated blood loss: 10 ml 13:29:02 Post procedure instruction explained to patient.Patient verbalizes understanding. 13:29:02 Patient needs reinforcement of post procedure teaching. 13:29:10 Procedure Complication : No complications 13:29:13 Procedure and supply charges have been captured, reviewed, submitted and are correct. 13:34:08 Vital chart was stopped 13:34:09 See physician's report for complete and final results. 13:34:14 Report given to Pre/Post Procedure Room. 13:34:16 Patient transfered to Pre/Post Procedure Room with Stretcher. 13:34:18 Procedure ended. 13:34:18 Full Disclosure recording stopped 13:34:22 End room use (Document Last) Device Usage Item Name Manufacture Quantity Catalog Number Hospital Part Current M inimal Lot# / Charge Number Stock Stock Serial# Code Tegaderm 4 x 4 3M 1 [id number] 784425 [id number] 5 (1626W) ACIST Manifold Acist 1 14445 749849 384548 535153 5 (95420) [employer] ACIST Hand Acist 1 25284 902929 201091 539788 5 Control (11890) Medical Systems Inc ACIST Syringe Acist 1 00407 205024 499566 739178 2 0 (17358) Medical Systems Inc Medline Cath Cardinal 1 [id number] 521295 12728 098300 5 Pack Health ([id number]) Bag Decanter Microtek 1 2002S 848342 11993 618382 5 (2001S) Medical Inc. DIAGNOSTIC WIRE St Cesar 1 246745 316206 336874 737884 3 0 .035 260cm J wire (370262) MBrace Wrist Advanced 1 140-0250-00 544435 14570 772888 5 Support Vascular (376417847) Dynamics SHEATH 6Fr Merit 1 [id number] 440730 178625 782810 5 Prelude Radial Medical ([id number]) GLIDE WIRE Terumo 1 DU5801 859716 196154 272339 5 ANGLE 260cm (TY1391) DIAGNOSTIC Terumo 1 40-7163 874625 654242 807988 5 [place] 110cm 5 Fr catheter (330530) DIAGNOSTIC AR Cardinal 1 [id number] 599317 978147 226990 1 5 MOD 5Fr Health Catheter (171565X) TR BAND Terumo 1 [id number] 728599 393032 426301 4 0 Standard ([id number]) Signature Audit [place] Stage Time Signature Unsigned Intra-Procedure 08/06/2017 Sudhakar Gomez 1:35:23 PM RT(R) Signatures Monitor : Sudhakar Gomez RT Signature : Date : Time : [facility] [address] [place] [address]
[~2017-08-06 10:52] MED LIST changes: -PRAVACHOL40 MG PO
[2017-08-06] MEDS ORDERED: PRAVACHOL40 MG PO (11:34)
[2017-08-06 11:44] VITALS: BP 181/88; Ht 172.7 cm; Wt 75.0 kg
[2017-08-06 11:54] LABS: BASOPHILS 0.3 % (0-2); EOSINOPHILS 6.5 % (0-7); HEMOGLOBIN 12.8 g/dL (12-16); IMMATURE GRANULOCYTES 0.3 % (0-5); MCH 29.4 pg (26.0-34.0); MCHC 34.6 g/dL (31.0-37.0); MCV 84.9 fL (80.0-100.0); MEAN PLATELET VOLUME 11.1 fL (7.4-10.4); NEUTROPHILS 59.9 % (40-80); PLATELET COUNT 221 10x3/uL (130-400); RBC 4.36 10x6/uL (4.00-5.40); RDW 15.7 % (11.5-14.5); WBC 9.8 10x3/uL (4.8-10.8)
[2017-08-06 12:07] LABS: ANION GAP 16.9 mmol/L (8-16); CALCIUM 9.7 mg/dL (8.5-10.1); CARBON DIOXIDE 20.9 mmol/L (21.0-32.0); POTASSIUM - SERUM 3.8 mmol/L (3.5-5.1)
== END 2017-08-06 17:26 | disposition home or self-care (01) ==
LOC: D.CATH 10:52
PROVIDERS: Internal Medicine Cardiovascular Disease
DX: I25.119 Atherosclerotic heart disease of native coronary artery with unspecified angina pectoris (principal); E11.9 Type 2 diabetes mellitus without complications; I10 Essential (primary) hypertension; R94.30 Abnormal result of cardiovascular function study, unspecified; Z01.812 Encounter for preprocedural laboratory examination

== ENCOUNTER 2017-08-15 08:00 | Outpatient (CLI) | payer MEDICARE, BC ==
[~2017-08-15 08:00] MED LIST changes: +PRAVACHOL40 MG PO
[2017-08-15 15:16] LABS: BASOPHILS 0.5 % (0-2); EOSINOPHILS 5.1 % (0-7); HEMATOCRIT 35.4 % (36.0-48.0); HEMOGLOBIN 12.2 g/dL (12-16); IMMATURE GRANULOCYTES 0.4 % (0-5); LYMPHOCYTES 37.8 % (15-50); MCHC 34.5 g/dL (31.0-37.0); MCV 84.3 fL (80.0-100.0); MEAN PLATELET VOLUME 10.7 fL (7.4-10.4); MONOCYTES 4.2 % (2-11); RDW 15.5 % (11.5-14.5); WBC 8.3 10x3/uL (4.8-10.8)
[2017-08-15 15:17] LABS: PLATELET COUNT 272 10x3/uL (130-400)
[2017-08-15 15:32] LABS: APTT 26.3 SECONDS (22.8-39.4); INR 1.09 (0.85-1.17); PROTIME 13.7 SECONDS (11.6-15.0)
[2017-08-15 15:42] LABS: ALBUMIN 3.5 g/dL (3.4-5.0); ANION GAP 12.5 mmol/L (8-16); BILIRUBIN - TOTAL 0.26 mg/dL (0.2-1.3); CALCIUM 8.8 mg/dL (8.5-10.1); CARBON DIOXIDE 25.1 mmol/L (21.0-32.0); CREATININE - SERUM 1.9 mg/dL (0.6-1.3); PHOSPHOROUS 3.2 mg/dL (2.5-4.9); POTASSIUM - SERUM 3.6 mmol/L (3.5-5.1); PROTEIN - SERUM 7.9 g/dL (6.4-8.2); T4 THYROXIN - FREE 1.05 ng/dL (0.76-1.46); THYROID STIMULATING HORMONE 1.92 uIU/mL (0.36-3.74); URIC ACID 7.4 mg/dL (2.6-7.2)
[2017-08-15 16:27] LABS: APPEARANCE HAZY (CLEAR); BILIRUBIN NEGATIVE (NEGATIVE); COLOR YELLOW (YELLOW); GLUCOSE NEGATIVE (NEGATIVE); KETONE NEGATIVE (NEGATIVE); NITRITE NEGATIVE (NEGATIVE); PROTEIN TRACE mg/dL (NEGATIVE); RED CELLS - URINE 0-5 /hpf (0-5); UROBILINOGEN NORMAL (NORMAL); WHITE CELLS - URINE >50 /hpf (0-5)
[2017-08-15 16:28] LABS: BACTERIA MANY /hpf (NONE SEEN); EPITHELIAL CELLS OCC /hpf (0-5)
[2017-08-28 10:01] VITALS: BMI 26.9
== END 2017-08-15 08:01 | disposition home or self-care (01) ==
LOC: D.OPS 08:00 → EDSTATUS 08-18 10:30 → D.SDCHOLD 08-18 10:30
PROVIDERS: Thoracic Surgery (Cardiothoracic Vascular Surgery)
DX: I25.10 Atherosclerotic heart disease of native coronary artery without angina pectoris (principal); Z01.810 Encounter for preprocedural cardiovascular examination; Z01.811 Encounter for preprocedural respiratory examination; Z01.812 Encounter for preprocedural laboratory examination; Z53.9 Procedure and treatment not carried out, unspecified reason; E07.9 Disorder of thyroid, unspecified; E11.9 Type 2 diabetes mellitus without complications; R07.9 Chest pain, unspecified; R06.00 Dyspnea, unspecified

== ENCOUNTER → 2017-08-19 08:24 | Outpatient (CLI) | payer MEDICARE, BC ==
[2017-08-06 11:44] VITALS: BMI 25.1
[~2017-08-19 08:24] MED LIST changes: +ACETAMINOPHEN325 MG PO; +AFRIN NASAL SPR15 ML NASAL; +ASPIRIN81 MG PO; +ATROVENT 0.02%2.5 ML UPD; +COLACE100 MG PO; +CORDARONE200 MG PO; +FLORAJEN3 CAPS460 MG PO; +HEMOCYTE PLUS C1 CAP PO; +INVANZ 1 GM/NS 11 G1 IV; +INVANZ 1 GM/NS 11 G1 IVPB; +K-DUR20 MEQ PO; +K-TAB10 MEQ PO; +LASIX20 MG PO; +LASIX40 MG PO; +LOPRESSOR25 MG PO; +LOVENOX30 MG/0.3 SC; +NORVASC10 MG PO; +NYSTATIN ORAL SU5 ML PO; +PULMICORT0.5 MG/21 INH; +SALINE NASAL SP45 ML NS; +ULTRAM50 MG PO; +XOPENEX 0.0.63 MG/3 UPD; +ZOFRAN4 MG PO; +ZOSYN 3.3753.375 G1 IV
[2017-08-19 08:58] LABS: PLT FUNCT.(P2Y12) PLAVIX 8 PRU (194-418)
== END | disposition home or self-care (01) ==
LOC: D.LAB 08:24
PROVIDERS: Thoracic Surgery (Cardiothoracic Vascular Surgery)
DX: D69.6 Thrombocytopenia, unspecified (principal)

== ENCOUNTER → 2017-08-25 08:07 | Outpatient (CLI) | payer MEDICARE, BC ==
[2017-08-06 11:44] VITALS: BMI 25.1
[2017-08-25 10:18] LABS: PLT FUNCT.(P2Y12) PLAVIX 253 PRU (194-418)
== END | disposition home or self-care (01) ==
LOC: D.LAB 08:00
PROVIDERS: Thoracic Surgery (Cardiothoracic Vascular Surgery)
DX: D69.6 Thrombocytopenia, unspecified (principal)

== ENCOUNTER 2017-08-27 05:00 | Inpatient (IN) | payer MEDICARE, BC ==
[~2017-08-27] VITALS: Ht 172.7 cm; Wt 79.1 kg
[2017-08-27] VITALS (37 sets, daily range): BP systolic 91–150; BP diastolic 47–71; BMI 24.9; BMI 26.8
--- NOTE | ~2017-08-27 | HP ---
PATIENT: RADHA PABLO [facility] MEDICAL RECORD: [id number] ACCOUNT: [id number] LOCATION:[facility]05 : 43 ADMISSION DATE: 08/27/17 HISTORY AND PHYSICAL EXAMINATION NameRADHA PABLO (71yo, F) ID# [id number]. Date/Time08/15/2017 11:30DFWQL90 1945Service Dept.NPP_[facility] ClinicProviderSHAUN JACKSON MDInsuranceMed Primary: MED[place]ARE-[place] (MEDICARE) Insurance # : [id number] Employer Name : RETIRED Med Secondary: [place]BS-[place] Insurance # : [id number] Policy/Group # : [id number] Prescription: ARBCBS - Member is eligible. Chief Complaint Coronary artery disease Evaluate for CABG Patient's Care Team Fashion Consultant Selling: CHRISTINA DOMINGUEZ MD: [address] [place] [phone], , Patient's Pharmacies [phone] (ERX): [phone] [facility] [address], , Vitals BP:136/72 sitting R arm 08/15/2017 11:23 am 132/70 sitting L arm 08/15/2017 11:24 amHR:74/reg 08/15/2017 11:25 amHt:5 ft 8 in 08/15/2017 11:23 amWt:165 lbs 08/15/2017 11:21 amBMI:25.1 08/15/2017 11:23 amAllergies Reviewed Allergies CODEINEMedications Reviewed Medications amoxicillin 500 mg-potassium clavulanate 125 mg rwmekr47/10/18 filledPRIMEbetamethasone dipropionate 0.05 % topical vfqvgopy61/19/17 filledPRIMEcarvedilol 6.25 mg hlifpa81/30/18 filledPRIMEcefUROXime axetil 250 mg goeido46/20/17 filledPRIMEcefUROXime axetil 500 mg xxiypo61/20/17 filledPRIMEcitalopram 20 mg dxjpke86/07/18 filledPRIMEclopidogrel 75 mg bzvkie65/28/18 filledPRIMEdoxycycline hyclate 100 mg kfdbyz76/21/18 filledPRIMEfolic acid 1 mg tablet TK 1 T PO BID08/02/17 filledsurescriptsglipiZIDE ER 5 mg tablet, extended release 24 hr05/23/17 filledPRIMEJanuvia 100 mg wssjva47/21/18 filledPRIMElevothyroxine 100 mcg tablet TK 1 T PO D006/05/17 filledsurescriptslosartan 100 mg qokkmw46/24/18 filledPRIMEnabumetone 500 mg quxwap50/20/17 filledPRIMEnitrofurantoin macrocrystal 100 mg /19/18 filledPRIMEnitrofurantoin monohydrate/macrocrystals 100 mg oqrmjsm88/23/18 filledPRIMEofloxacin 0.3 % eye drops06/13/17 filledPRIMEOneTouch Ultra Blue Test Strip USE UTD05/01/17 filledsurescriptsOneTouch UltraMini kit USE UTD05/15/17 filledsurescriptspantoprazole 40 mg tablet,delayed release TK 1 T PO QD08/02/17 filledsurescriptsphenazopyridine 200 mg tablet TK 1 T PO QID FOR 3 DAYS10/01/16 filledsurescriptspravastatin 40 mg ydlidl45/14/18 filledPRIMEpredniSONE 5 mg tablets in a dose pack12/04/16 filledPRIMEPremarin 0.625 mg/gram vaginal cream10/01/16 filledPRIMEProAir HFA 90 mcg/actuation aerosol /08/17 filledPRIMEsucralfate 1 gram tablet TK 1 T PO B EACH MEAL AND HS07/03/17 filledsurescriptstiZANidine 4 mg ylbxhys18/06/17 filledPRIMEtobramycin 0.3 %-dexamethasone 0.1 % eye HISTORY AND PHYSICAL [id number] RADHA PABLO KRIS waylon,tfkedzjukb45/19/18 filledPRIMETozal 3.33 mg-200 mg capsule TK THREE CS PO D WITH FOOD08/30/16 filledsurescriptstraMADol 37.5 mg-acetaminophen 325 mg mlscob17/10/18 filledPRIMEProblems Reviewed Problems Disorder of thyroid gland Diabetes mellitus Hypertensive disorder Coronary arteriosclerosis Dyspnea Chest pain Family History Reviewed Family History Social History Reviewed Social History Smoking Status: Never smoker Non-smoker Surgical History Reviewed 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 HPI asymptomatic except dyspnea, specifically no chest pain, palpitations, syncope or near syncope currently ROS Additionally reports: as reviewed in the chart with the patient ROS as noted in the HPI Physical Exam Patient is a 71-year-old female. Constitutional: General Appearance well nourished and developed and healthy-appearing. Level of Distress NAD. Ambulation ambulating normally. Cardiovascular: Apical Impulse not displaced or no thrill. Heart Auscultation normal s1 and s2; no murmurs, rubs, or gallops; and RRR. Arterial Pulses no abdominal aorta bruits, femoral bruits, or popliteal bruits and 2+ bilateral, carotid 2+ bilateral, femoral 2+ bilate ral, popliteal 2+ bilateral, and dorsalis pedis 2+ bilateral. Edema no edema or varicosities. HISTORY AND PHYSICAL [id number] RADHA PABLO Lungs: Repiratory Effort no dyspnea. Percussion no hyperresonance or dullness or flatness. Auscultation no wheezing, rhonchi, or rales / crackles and breathing sounds normal, good air movement, and CTA except as noted. Abdomen: Bowl Sounds normal. Inspection and Palpation no tenderness, guarding, masses, or rebound tenderness and soft and non-distended. Liver non-tender and no hepatomegaly. Spleen non-tender and no splenomegaly. Hernia none palpable. Musculoskeletal System: Gait And Stance normal gait and stance. Digits and Nails normal nails and no cyanosis. Neurologic: Cranial Nerves grossly intact. Reflexes DTRs 2+ bilaterally throughout. Sensation grossly intact. Lymph Nodes: Lymph Nodes no cervical LAD, supraclavicular LAD, axillary LAD, or inguinal LAD. Eyes: Lids and Conjunctivae no discharge or pallor and non-injected. Pupils PERRLA. Cornea grossly intact. EOM EOMI. Lens clear. Sclera non-icteric. Neck: Neck no masses, enlarged lymph nodes, or carotid bruits and supple and trachea midline. Thyroid no enlargement or nodules and non-tender. Skin: Inspection and Palpation no rash, lesions, ulcers, jaundice, or abnormal nevi. Assessment / Plan 1. Coronary a rteriosclerosis I25.10: Atherosclerotic heart disease of craig coronary artery without angina pectoris 2. Syncope R55: Syncope and collapse FAINTING: CARE INSTRUCTIONS LIGHTHEADEDNESS OR FAINTNESS: CARE INSTRUCTIONS Patient Instructions carotid Doppler study Discussion Notes we discussed the importance of left main coronary artery stenosis, the possibility that it may contribute to her symptoms, and the previous history of carotid stenosis. We discussed the rationale for coronary artery bypass graft, the risks and alternatives. Consent given SHAUN JACKSON MD at 0727 CC: [id number] DICTATION DATE: 08/15/[address] ENGINEER: MARY ANNE 08/27/17 0845 ADM IN [facility] [address] [place] [id number]
--- NOTE | ~2017-08-27 | TEE ---
PATIENT:RADHA PABLO KRIS MEDICAL RECORD: [id number] LOCATION:[place] [address] AGE OF PATIENT: 71 ADMISSION DATE: 08/27/17 SEX: F REFERRING PHYSICIAN: INTERPRETING PHYSICIAN: DIANA BLAND MD TRANSESOPHAGEAL ECHOCARDIOGRAM Date: 08/27/17 IZABELLA CHARGE Y INDICATIONS: CABG PREMEDICATIONS: PATIENT'S RESPONSE PROCEDURE DOPPLER MEASUREMENTS: LVIT LA PA RA LVOT RVOT Asc. Ao AV Gradient Peak AV Mean AV Area MV Gradient Peak MV Mean MV Area INTERPRETATION: Doppler: 2-D: EF 65+ COLOR FLOW DOPPLER TRACE MR NORMAL SALINE STUDY: MISCELLANOUS: DIAGNOSIS: PLAN: Sprayer Insecticide:1 Dr. Bland Repair Clerk: Shawna SNYDER COMMENTS: MANUEL PATIENT DATE OF SERVICE: 08/27/2017 PROCEDURE: Transesophageal echo evaluation of valvular structures during bypass surgery. FINDINGS: 1. Left ventricular chamber size is within normal limits. Left ventricular systolic function is normal. Overall ejection fraction estimated at 65%. 2. Left atrium, right atrium, and right ventricle chamber sizes are within TRANSESOPHAGEAL ECHOCARDIOGRAM REPORT [id number] RADHA PABLO normal limits. 3. Valvular structures have normal structure and motion. 4. Doppler interrogation reveals only trace mitral regurgitation, no other valvular insufficiency or stenosis. 5. No evidence of pericardial effusion or left ventricular thrombus. TRANSINT:[id number] Voice Confirmation ID: [id number] DOCUMENT ID: [id number] at 1207 CC: [id number] DICTATION DATE: 08/27/17 1203 TECHNICAL STAFF ENGINEER: 08/27/17 1232 ADM IN [place] [id number] [place] [address]
--- NOTE | ~2017-08-27 | OP ---
PATIENT NAME: RADHA PABLO MEDICAL RECORD: [id number] :43 LOCATION:D.CVI D.CV05 ADMISSION DATE:08/27/17 SURGEON: ALEXANDRU JACKSON MD DATE OF OPERATION: 08/27/2017 SURGEON: Alexandru Jackson MD ASSISTANTS: 1. Nathen Schulz MD 2. GEO Win OPERATIONS PERFORMED: 1. Coronary artery bypass graft times 4 (left internal mammary artery to LAD, reverse saphenous vein graft from aorta to first diagonal, aorta to ramus intermedius, and aorta to right coronary artery). 2. Endoscopic saphenous vein harvest. PREOPERATIVE DIAGNOSES: Coronary disease with unstable angina, left main coronary artery stenosis. POSTOPERATIVE DIAGNOSES: Coronary disease with unstable angina, left main coronary artery stenosis. ANESTHESIA: General endotracheal anesthesia. ESTIMATED BLOOD LOSS: Cardiopulmonary bypass with Cell Saver retransfusion. COMPLICATIONS: None. SPECIMENS: None. CONDITION: Stable. DISPOSITION: CV ICU. OPERATIVE FINDINGS: 1. Small suboptimal greater saphenous vein exposed in 4 sites on the right leg, therefore the left greater saphenous vein was removed endoscopically and with a small incision at the groin and inferiorly with good quality vein graft. 2. Good quality internal mammary artery. 3. Adhesions to left upper lobe and lingula. 4. Transesophageal echocardiography revealed good contractility and no valvular insufficiency or stenosis. 5. LAD and all vessels had severe disease. The LAD was a 2.0-mm vessel. 6. Diagonal vessel was 2.0 mm with plaque throughout. 7. The ramus intermedius intramyocardial segment still had severe disease, was a 2.0-mm vessel, and there was significant distal disease. 8. The distal circumflex branch was only 1.0 mm with severe disease and was not bypassed. 9. The smaller caliber portion from the lower leg vein was used for the bypass to the right coronary artery just past the origin of a smallish PDA, but it was a 2.0-mm severely diseased vessel at the site. OPERATIVE INDICATION: Coronary disease including left main coronary stenosis with unstable angina. OPERATIVE REPORT [id number] RADHA PABLO OPERATIVE SUMMARY IN DETAIL: The patient was brought to the operating suite. General anesthesia was obtained. The patient was prepped and draped. Greater saphenous vein was harvested as noted above. First open harvest in the right leg, but the vein was left intact as this was small. Then, endoscopic harvest in the left leg and open harvest in the lower leg. Vein removed. Side branches were clipped and tied. Leg irrigated, closed in 2 layers, and wrapped with an elastic wrap. Median sternotomy incision was made. Subcutaneous tissue was divided with electrocautery. Sternum was divided with a saw. Left hemisternum was elevated. Left pleural cavity was entered. Left internal mammary vein was taken as a pedicle graft. Sternal retractor was placed. Pericardium was opened. Heparin was given. The patient was cannulated. Internal mammary was clipped and made ready for anastomosis. After activated clotting time was appropriately elevated, the patient was placed on cardiopulmonary bypass. Sites for distal anastomoses were selected. The patient was cooled. Antegrade cardioplegia cannula was inserted. Crossclamp was placed. Cardioplegia was given antegrade and this was repeated at 15-minute intervals including down the completed vein grafts. Distal anastomoses were performed in standard technique, proximal anastomoses with single crossclamp technique. Cross clamp removed. Aortic root de-aired. Proximal anastomoses tied down. Vein grafts de-aired and flow restored. Proximal and distal anastomotic sites were inspected for bleeding. The patient resumed spontaneous rhythm. Atrial and ventricular pacing wires were placed. The patient was atrially paced and weaned from cardiopulmonary bypass and was stable. The patient was decannulated. Aortic cannula site was oversewn. Protamine was given. Thorough irrigation was undertaken and grafts lay appropriately. Left chest was evacuated as much as possible due to the adhesions and drains were placed far to the left, 2 mediastinal drains. Pericardial fat loosely reapproximated. The patient was stable. Chest was closed. Internal mammary harvest site had been inspected for bleeding. A Robicsek weave was used on either side. Fascia was closed. Subcutaneous tissue was closed. Skin was closed. Dermabond was placed. Needle and sponge counts were report as correct and the patient was taken to ICU in stable condition. TRANSINT:[id number] Voice Confirmation ID: [id number] DOCUMENT ID: [id number] ALEXANDRU JACKSON MD at 0727 CC: CHRISTINA DOMINGUEZ M.D. [id number] DICTATION DATE: 08/27/171645 REAL ESTATE TRANSACTION COORDINATOR: 08/27/171914 ADM IN [facility] [address] [id number]
[~2017-08-27 05:00] MED LIST changes: -ACETAMINOPHEN325 MG PO; -AFRIN NASAL SPR15 ML NASAL; -ASPIRIN81 MG PO; -ATROVENT 0.02%2.5 ML UPD; -COLACE100 MG PO; -CORDARONE200 MG PO; -FLORAJEN3 CAPS460 MG PO; -HEMOCYTE PLUS C1 CAP PO; -INVANZ 1 GM/NS 11 G1 IV; -INVANZ 1 GM/NS 11 G1 IVPB; -K-DUR20 MEQ PO; -K-TAB10 MEQ PO; -LASIX20 MG PO; -LASIX40 MG PO; -LOPRESSOR25 MG PO; -LOVENOX30 MG/0.3 SC; -NORVASC10 MG PO; -NYSTATIN ORAL SU5 ML PO; -PULMICORT0.5 MG/21 INH; -SALINE NASAL SP45 ML NS; -ULTRAM50 MG PO; -XOPENEX 0.0.63 MG/3 UPD; -ZOFRAN4 MG PO; -ZOSYN 3.3753.375 G1 IV
[2017-08-28] VITALS (45 sets, daily range): BP systolic 93–140; BP diastolic 36–67; BMI 26.9
[2017-08-28 05:02] LABS: HEMATOCRIT 29.3 % (36.0-48.0); HEMOGLOBIN 9.9 g/dL (12-16); MCH 28.2 pg (26.0-34.0); MCHC 33.8 g/dL (31.0-37.0); MCV 83.5 fL (80.0-100.0); MEAN PLATELET VOLUME 11.2 fL (7.4-10.4); RBC 3.51 10x6/uL (4.00-5.40); RDW 15.4 % (11.5-14.5); WBC 17.8 10x3/uL (4.8-10.8)
[2017-08-28 05:17] LABS: ALBUMIN 2.5 g/dL (3.4-5.0); ANION GAP 13.7 mmol/L (8-16); BILIRUBIN - TOTAL 0.35 mg/dL (0.2-1.3); CALCIUM 7.2 mg/dL (8.5-10.1); CARBON DIOXIDE 24.3 mmol/L (21.0-32.0); CREATININE - SERUM 1.7 mg/dL (0.6-1.3); PROTEIN - SERUM 5.1 g/dL (6.4-8.2)
[2017-08-28 13:35] LABS: APPEARANCE HAZY (CLEAR); BILIRUBIN NEGATIVE (NEGATIVE); COLOR YELLOW (YELLOW); EPITHELIAL CELLS OCC /hpf (0-5); GLUCOSE NEGATIVE (NEGATIVE); KETONE NEGATIVE (NEGATIVE); NITRITE NEGATIVE (NEGATIVE); PROTEIN TRACE mg/dL (NEGATIVE); RED CELLS - URINE 0-5 /hpf (0-5); UROBILINOGEN NORMAL (NORMAL); WHITE CELLS - URINE 25-50 /hpf (0-5)
[2017-08-28 13:36] LABS: BACTERIA MODERATE /hpf (NONE SEEN); MUCUS <1+ /lpf (NONE SEEN)
[2017-08-29] VITALS (24 sets, daily range): BP systolic 90–147; BP diastolic 43–60
[2017-08-29 06:26] LABS: HEMATOCRIT 24.5 % (36.0-48.0); HEMOGLOBIN 8.1 g/dL (12-16); MCH 28.3 pg (26.0-34.0); MCHC 33.1 g/dL (31.0-37.0); MEAN PLATELET VOLUME 11.4 fL (7.4-10.4); RBC 2.86 10x6/uL (4.00-5.40); RDW 15.8 % (11.5-14.5); WBC 19.1 10x3/uL (4.8-10.8)
[2017-08-29 06:48] LABS: ALBUMIN 2.5 g/dL (3.4-5.0); ANION GAP 12.5 mmol/L (8-16); BILIRUBIN - TOTAL 0.4 mg/dL (0.2-1.3); CALCIUM 7.9 mg/dL (8.5-10.1); CARBON DIOXIDE 26.3 mmol/L (21.0-32.0); CREATININE - SERUM 2.2 mg/dL (0.6-1.3); POTASSIUM - SERUM 3.8 mmol/L (3.5-5.1); PROTEIN - SERUM 5.5 g/dL (6.4-8.2)
[2017-08-29 06:49] LABS: MCV 85.7 fL (80.0-100.0)
[2017-08-30] VITALS (24 sets, daily range): BP systolic 88–140; BP diastolic 37–66
[2017-08-30 05:43] LABS: HEMATOCRIT 26.1 % (36.0-48.0); HEMOGLOBIN 8.8 g/dL (12-16); MCH 28.8 pg (26.0-34.0); MCHC 33.7 g/dL (31.0-37.0); MCV 85.3 fL (80.0-100.0); MEAN PLATELET VOLUME 11.1 fL (7.4-10.4); RBC 3.06 10x6/uL (4.00-5.40); RDW 15.6 % (11.5-14.5)
[2017-08-30 06:04] LABS: ALBUMIN 2.2 g/dL (3.4-5.0); ANION GAP 10.8 mmol/L (8-16); BILIRUBIN - TOTAL 0.63 mg/dL (0.2-1.3); CALCIUM 8.2 mg/dL (8.5-10.1); CREATININE - SERUM 2.2 mg/dL (0.6-1.3); POTASSIUM - SERUM 3.8 mmol/L (3.5-5.1); PROTEIN - SERUM 5.7 g/dL (6.4-8.2)
[2017-08-31] VITALS (24 sets, daily range): BP systolic 99–161; BP diastolic 45–77
[2017-08-31 05:31] LABS: HEMATOCRIT 26.4 % (36.0-48.0); HEMOGLOBIN 8.6 g/dL (12-16); MCH 28.1 pg (26.0-34.0); MCHC 32.6 g/dL (31.0-37.0); MCV 86.3 fL (80.0-100.0); MEAN PLATELET VOLUME 11.7 fL (7.4-10.4); RBC 3.06 10x6/uL (4.00-5.40); RDW 15.3 % (11.5-14.5)
[2017-08-31 05:41] LABS: WBC 10.5 10x3/uL (4.8-10.8)
[2017-08-31 06:07] LABS: ALBUMIN 2.1 g/dL (3.4-5.0); ANION GAP 10.3 mmol/L (8-16); BILIRUBIN - TOTAL 0.64 mg/dL (0.2-1.3); CALCIUM 7.9 mg/dL (8.5-10.1); CARBON DIOXIDE 27.7 mmol/L (21.0-32.0); CREATININE - SERUM 2.1 mg/dL (0.6-1.3); PROTEIN - SERUM 5.5 g/dL (6.4-8.2)
[2017-09-01] VITALS (29 sets, daily range): BP systolic 109–1135; BP diastolic 44–105; Ht 172.7 cm; Wt 79.1 kg
[2017-09-01 06:16] LABS: HEMATOCRIT 29.8 % (36.0-48.0); HEMOGLOBIN 9.9 g/dL (12-16); MCH 28.4 pg (26.0-34.0); MCHC 33.2 g/dL (31.0-37.0); MCV 85.6 fL (80.0-100.0); MEAN PLATELET VOLUME 11.1 fL (7.4-10.4); RBC 3.48 10x6/uL (4.00-5.40); RDW 15.4 % (11.5-14.5)
[2017-09-01 06:21] LABS: WBC 7.2 10x3/uL (4.8-10.8)
[2017-09-01 06:46] LABS: ALBUMIN 2.1 g/dL (3.4-5.0); ANION GAP 13.1 mmol/L (8-16); BILIRUBIN - TOTAL 0.87 mg/dL (0.2-1.3); CALCIUM 8.1 mg/dL (8.5-10.1); POTASSIUM - SERUM 4.1 mmol/L (3.5-5.1); PROTEIN - SERUM 5.6 g/dL (6.4-8.2)
[2017-09-02] VITALS (24 sets, daily range): BP systolic 90–184; BP diastolic 62–88
[2017-09-03] VITALS (19 sets, daily range): BP systolic 107–163; BP diastolic 64–96
[2017-09-03 04:23] LABS: BASOPHILS 0.2 % (0-2); EOSINOPHILS 4.4 % (0-7); HEMATOCRIT 26.6 % (36.0-48.0); HEMOGLOBIN 8.7 g/dL (12-16); IMMATURE GRANULOCYTES 0.7 % (0-5); MCH 28.2 pg (26.0-34.0); MCHC 32.7 g/dL (31.0-37.0); MCV 86.1 fL (80.0-100.0); MEAN PLATELET VOLUME 10.8 fL (7.4-10.4); NEUTROPHILS 66.7 % (40-80); PLATELET COUNT 224 10x3/uL (130-400); RBC 3.09 10x6/uL (4.00-5.40); RDW 15.4 % (11.5-14.5); WBC 8.3 10x3/uL (4.8-10.8)
[2017-09-03 04:33] LABS: CALCIUM 8.4 mg/dL (8.5-10.1); CARBON DIOXIDE 27.2 mmol/L (21.0-32.0); CREATININE - SERUM 1.9 mg/dL (0.6-1.3); POTASSIUM - SERUM 4.2 mmol/L (3.5-5.1)
[2017-09-04] VITALS (15 sets, daily range): BP systolic 123–165; BP diastolic 60–84
[2017-09-04] MEDS ORDERED: NYSTATIN ORAL SU5 ML PO (09:54)
[2017-09-04] MEDS ORDERED: LOPRESSOR25 MG PO (09:54)
[2017-09-04] MEDS ORDERED: CORDARONE200 MG PO (09:54)
[2017-09-04] MEDS ORDERED: HEMOCYTE PLUS C1 CAP PO (09:54)
[2017-09-04] MEDS ORDERED: ASPIRIN81 MG PO (09:55)
[2017-09-04] MEDS ORDERED: K-TAB10 MEQ PO (09:56)
[2017-09-04] MEDS ORDERED: COLACE100 MG PO (09:56)
[2017-09-04] MEDS ORDERED: FLORAJEN3 CAPS460 MG PO (09:56)
[2017-09-04] MEDS ORDERED: ULTRAM50 MG PO (09:57)
[2017-09-04] MEDS ORDERED: ZOSYN 3.3753.375 G1 IV (11:45)
== END 2017-09-04 18:03 | DRG 236 ==
LOC: D.ICU 05:00 → D.SDCHOLD 05:00 → D.CVICU 05:00 → D.SDCHOLD 07:30 → D.CVICU 12:43 → D.ICU 09-01 13:12
PROVIDERS: Internal Medicine; Thoracic Surgery (Cardiothoracic Vascular Surgery)
PROC: 02100Z9 Bypass Coronary Artery, One Artery from Left Internal Mammary, Open Approach (ICD-10-PCS; 2017-08-27)
PROC: 06BQ4ZZ Excision of Left Saphenous Vein, Percutaneous Endoscopic Approach (ICD-10-PCS; 2017-08-27)
PROC: 5A1221Z Performance of Cardiac Output, Continuous (ICD-10-PCS; 2017-08-27)
PROC: B24BZZ4 Ultrasonography of Heart with Aorta, Transesophageal (ICD-10-PCS; 2017-08-27)
PROC: 021209W Bypass Coronary Artery, Three Arteries from Aorta with Autologous Venous Tissue, Open Approach (ICD-10-PCS; principal; 2017-08-27 07:30)
DX: I25.110 Atherosclerotic heart disease of native coronary artery with unstable angina pectoris (principal); E87.0 Hyperosmolality and hypernatremia; N39.0 Urinary tract infection, site not specified; G72.81 Critical illness myopathy; G45.9 Transient cerebral ischemic attack, unspecified; I12.9 Hypertensive chronic kidney disease with stage 1 through stage 4 chronic kidney disease, or unspecified chronic kidney disease; E11.22 Type 2 diabetes mellitus with diabetic chronic kidney disease; N18.3 Chronic kidney disease, stage 3 (moderate); R06.00 Dyspnea, unspecified; R07.9 Chest pain, unspecified; R55 Syncope and collapse; D64.9 Anemia, unspecified; H54.7 Unspecified visual loss; B96.20 Unspecified Escherichia coli [E. coli] as the cause of diseases classified elsewhere; E03.9 Hypothyroidism, unspecified; N20.0 Calculus of kidney

== ENCOUNTER 2017-09-04 16:57 | Inpatient (IN) | payer MEDICARE, BC ==
--- NOTE | ~2017-09-04 | RHP ---
PATIENT: RADHA PABLO MEDICAL RECORD: [id number] ACCOUNT: [id number] LOCATION:[facility].1116 : 43 ADMISSION DATE: 09/04/17 REHABILITATION HISTORY AND PHYSICAL EXAMINATION POST ADMISSION PHYSICIAN EXAMINATION ADMITTING DIAGNOSIS: Critical illness myopathy. HISTORY OF PRESENT ILLNESS: The patient is admitted to inpatient rehab for neurological condition. She is a 71-year-old female patient admitted on 08/27/2017, admitted after coronary artery bypass grafting times 4. Labs on the indicated leukocytosis, white count was 17,000, was 19,000 on the . She did have a temperature of 100. On 08/29/2017, her creatinine was 1.7 on admission and went up to 2.2. Urinalysis did show some pyuria. Urine growth has been positive for ESBL positive E. coli, requiring contact isolations. Reported that she was have a history of frequent urinary tract infection, symptoms improved. Antibiotics were returned within a couple days. She is currently on IV antibiotic therapy, O2, telemetry, Granados catheterization, acute postop blood loss anemia has complicated this. She also has some confusion with self-care deficit and debility. She has got proximal muscle weakness with difficulty rising from nni-ge-xkiac. She has got a renal stone that is believed to be infected that urology is following. She has been ambulating with physical therapy, requiring O2 and multiple rest breaks. She has got macular degeneration, which has caused blindness. She lives at home with her , was moderately independent with use of a rolling walker for mobility, is independent with her ADLs. She is currently set up for mod assist for ADLs and mod assist to total assist for mobility. Plan is to return home at her prior level of functioning or better if possible. COMORBIDITIES: In this patient include UTI with extended-spectrum beta-lactamase positive Escherichia coli, diabetes with hyperglycemia, bibasilar atelectasis, small bilateral pleural effusions, acute pyelonephritis, chronic kidney disease, acute coronary artery disease, acute blood loss anemia, status post coronary artery bypass grafting, chronic renal insufficiency, renal stones, history of TIAs, macular degeneration. PAST MEDICAL HISTORY: Significant for TIA, vertigo, dentures, macular degeneration, diabetes, thyroid problems, hypertension, coronary artery disease, dyspnea, chest pain, acid reflux, constipation, depression and anxiety. PAST SURGICAL HISTORY: Includes hysterectomy. ALLERGIES: CODEINE. CURRENT MEDICATIONS: Include Zosyn 3.375 gm IV every 8 hours. She is on Januvia 100 mg daily, Protonix 40 mg daily, Synthroid 100 mcg daily, Floranex 460 mg daily, Folic acid 1 mg daily, citalopram 20 mg daily, aspirin chewable 81 mg daily, tramadol 50 mg every 4 hours, potassium chloride 10 mEq b.i.d., Mycostatin 5 cc every morning and at bedtime, Relafen 500 mg b.i.d., Lopressor 12.5 mg b.i.d., Colace 100 mg b.i.d., and amiodarone 200 mg b.i.d. HABITS: No current alcohol or tobacco use. FAMILY HISTORY: Noncontributory. HISTORY AND PHYSICAL [id number] RADHA PABLO SOCIAL HISTORY: The patient hopes to return back home, to get back to her prior level of functioning. REVIEW OF SYSTEMS: GENERAL: Does complain of weakness and fatigue. HEENT: Denies cold, cough, or congestion. CARDIOVASCULAR: Denies chest pain. PHYSICAL EXAMINATION: VITAL SIGNS: Stable, afebrile. GENERAL: Elderly female, in no acute distress. HEENT: Normocephalic and atraumatic. Mucosa moist. NECK: Supple. No adenopathy. LUNGS: Clear at this time. HEART: Regular rate and rhythm. ABDOMEN: Benign. EXTREMITIES: No clubbing seen. NEUROLOGIC: She does have noted proximal muscle weakness. LABORATORY DATA: White count is 10.3, H&H 9.1 and 28.5 and platelet count 300. Sodium 140, potassium 4.4, BUN and creatinine of 20 and 1.8. Blood sugar is noted to be 149. ASSESSMENT: This 71-year-old female patient admitted to rehab with a working diagnosis of critical illness myopathy. The patient has potential to make improvement. We instituted the following multidisciplinary therapies include, but not limited to physical, occupational, respiratory, speech, nutritional services, prosthetics and orthotics. Given her complex medical condition and risk for more complications, rehabilitation services cannot be provided at a low level of care such as skilled nurse facility. PLAN: 1. Admit to [facility] for intense inpatient therapy to include the following disciplines: A. Physical therapy per gait, all transfer skills and bed mobility to a modified independent level. B. Occupational therapy to improve activities of daily living to a modified independent level. C. Case management to assist with discharge planning and placement options. D. Nutrition to assist with nutritional needs. E. Rehabilitation nursing to assist in monitoring the patient's underlying medical conditions and to assist with any type of bowel or bladder management. 2. The patient's current medication and medical care will be continued. 3. Placed on standard fall precautions. 4. The patient's estimated length of stay is approximately 7 to 10 days. 5. We will discuss this patient during care team staff meeting this week. TRANSINT:[id number] Voice Confirmation ID: [id number] DOCUMENT ID: [id number] CONTRERAS notes whether there has been none or any medical/functional change since admission: - No change since preadmission screen. HISTORY AND PHYSICAL [id number] RADHA PABLO attests patient continues to be appropriate for IRF: - Continues to be appropriate. GUY PEOPLES MD at 1516 CC: [id number] DICTATION DATE: 09/05/17 0856 SUPERVISOR EXTRUDING DEPARTMENT: 09/05/17 0953 DIS IN 09/14/17 [facility] [address] [place] [address]
[~2017-09-04 16:57] MED LIST changes: +ASPIRIN81 MG PO; +COLACE100 MG PO; +CORDARONE200 MG PO; +FLORAJEN3 CAPS460 MG PO; +HEMOCYTE PLUS C1 CAP PO; +K-TAB10 MEQ PO; +LOPRESSOR25 MG PO; +NYSTATIN ORAL SU5 ML PO; +ULTRAM50 MG PO; +ZOSYN 3.3753.375 G1 IV
[2017-09-04 19:00] VITALS: BP 154/70
[2017-09-05 08:00] VITALS: BP 180/84
[2017-09-05 08:17] LABS: BASOPHILS 0.2 % (0-2); EOSINOPHILS 3.7 % (0-7); HEMATOCRIT 28.5 % (36.0-48.0); HEMOGLOBIN 9.1 g/dL (12-16); IMMATURE GRANULOCYTES 0.5 % (0-5); LYMPHOCYTES 13.2 % (15-50); MCHC 31.9 g/dL (31.0-37.0); MCV 87.7 fL (80.0-100.0); MEAN PLATELET VOLUME 10.4 fL (7.4-10.4); MONOCYTES 7.4 % (2-11); RBC 3.25 10x6/uL (4.00-5.40); RDW 15.4 % (11.5-14.5); WBC 10.3 10x3/uL (4.8-10.8)
[2017-09-05 08:20] LABS: PLATELET COUNT 300 10x3/uL (130-400)
[2017-09-05 08:31] LABS: ANION GAP 12.8 mmol/L (8-16); CALCIUM 8.7 mg/dL (8.5-10.1); CARBON DIOXIDE 25.6 mmol/L (21.0-32.0); CREATININE - SERUM 1.8 mg/dL (0.6-1.3); POTASSIUM - SERUM 4.4 mmol/L (3.5-5.1)
[2017-09-05 12:18] VITALS: Ht 172.7 cm
[2017-09-05 19:54] VITALS: BP 114/82
[2017-09-06 07:54] VITALS: BP 120/60
[2017-09-07 00:03] VITALS: BP 165/71
[2017-09-07 08:00] VITALS: BP 167/71
[2017-09-07 19:30] VITALS: BP 130/74
[2017-09-08 06:32] LABS: BASOPHILS 0.2 % (0-2); EOSINOPHILS 2.7 % (0-7); HEMATOCRIT 26.7 % (36.0-48.0); HEMOGLOBIN 8.5 g/dL (12-16); IMMATURE GRANULOCYTES 0.6 % (0-5); LYMPHOCYTES 14.9 % (15-50); MCH 28.1 pg (26.0-34.0); MCHC 31.8 g/dL (31.0-37.0); MCV 88.1 fL (80.0-100.0); MEAN PLATELET VOLUME 10.3 fL (7.4-10.4); MONOCYTES 9.5 % (2-11); NEUTROPHILS 72.1 % (40-80); RBC 3.03 10x6/uL (4.00-5.40); WBC 10.6 10x3/uL (4.8-10.8)
[2017-09-08 06:35] LABS: PLATELET COUNT 369 10x3/uL (130-400)
[2017-09-08 07:12] LABS: ANION GAP 14.1 mmol/L (8-16); CALCIUM 8.5 mg/dL (8.5-10.1); CARBON DIOXIDE 24.2 mmol/L (21.0-32.0); CREATININE - SERUM 2.3 mg/dL (0.6-1.3); POTASSIUM - SERUM 4.3 mmol/L (3.5-5.1)
[2017-09-08 08:00] VITALS: BP 111/75
[2017-09-08 19:00] VITALS: BP 153/61
[2017-09-09 08:00] VITALS: BP 162/71
[2017-09-09 19:00] VITALS: BP 147/57
[2017-09-10 07:24] LABS: BASOPHILS 0.3 % (0-2); EOSINOPHILS 3.4 % (0-7); HEMATOCRIT 28.8 % (36.0-48.0); HEMOGLOBIN 9.4 g/dL (12-16); IMMATURE GRANULOCYTES 0.6 % (0-5); LYMPHOCYTES 18.9 % (15-50); MCH 28.5 pg (26.0-34.0); MCHC 32.6 g/dL (31.0-37.0); MCV 87.3 fL (80.0-100.0); MEAN PLATELET VOLUME 10.8 fL (7.4-10.4); MONOCYTES 9.3 % (2-11); NEUTROPHILS 67.5 % (40-80); PLATELET COUNT 415 10x3/uL (130-400); RDW 16.8 % (11.5-14.5)
[2017-09-10 07:32] LABS: ANION GAP 13.8 mmol/L (8-16); CALCIUM 8.2 mg/dL (8.5-10.1); CARBON DIOXIDE 22.6 mmol/L (21.0-32.0); POTASSIUM - SERUM 4.4 mmol/L (3.5-5.1); THYROID STIMULATING HORMONE 7.54 uIU/mL (0.36-3.74)
[2017-09-10 08:00] VITALS: BP 150/62
[2017-09-10 19:00] VITALS: BP 164/67
[2017-09-11 08:15] VITALS: BP 169/62
[2017-09-11 19:58] VITALS: BP 194/77
[2017-09-12 09:21] VITALS: BP 171/77
[2017-09-12 19:00] VITALS: BP 183/79
[2017-09-13 09:24] VITALS: BP 177/79
[2017-09-13 20:30] VITALS: BP 179/71
[2017-09-14 08:45] VITALS: BP 157/65
== END 2017-09-14 14:10 | disposition short-term general hospital (02) | DRG 92 ==
LOC: D.REHAB 16:57
PROVIDERS: Emergency Medicine
DX: G72.81 Critical illness myopathy (principal); J90 Pleural effusion, not elsewhere classified; D62 Acute posthemorrhagic anemia; N10 Acute pyelonephritis; Z95.1 Presence of aortocoronary bypass graft; B96.29 Other Escherichia coli [E. coli] as the cause of diseases classified elsewhere; E11.22 Type 2 diabetes mellitus with diabetic chronic kidney disease; I12.9 Hypertensive chronic kidney disease with stage 1 through stage 4 chronic kidney disease, or unspecified chronic kidney disease; I25.10 Atherosclerotic heart disease of native coronary artery without angina pectoris; N20.0 Calculus of kidney; H35.30 Unspecified macular degeneration; E11.65 Type 2 diabetes mellitus with hyperglycemia; N18.3 Chronic kidney disease, stage 3 (moderate)

== ENCOUNTER 2017-09-14 13:26 | Inpatient (IN) | payer MEDICARE, BC ==
[~2017-09-14] VITALS: Ht 172.7 cm; Wt 79.7 kg
--- NOTE | ~2017-09-14 | OP ---
PATIENT NAME: RADHA PABLO MEDICAL RECORD: [id number] :43 LOCATION:D.MS [id number] ADMISSION DATE:09/14/17 SURGEON: ANTWON SHAH MD DATE OF OPERATION: 09/17/2017 SURGEON: Antwon Shah MD ANESTHESIA: General anesthesia by Dr. Ori Fiore. DIAGNOSIS: Infected right renal stones 9+6+2+2 mm. PROCEDURE: Right percutaneous nephrolithotomy, cystoscopy. FINDINGS: Faintly radiodense stones, multiple stones seen in the lower pole timothy. At least, 9-mm of stone were present plus a 6-mm mid pole stone. No stone seen in the upper pole timothy. SPECIMENS: Renal stones. BLOOD LOSS: Minimal. CLINICAL HISTORY: This is a 72-year-old female with a history of diabetes mellitus type 2 and recurrent urinary tract infections. She has in the urine, E. coli, ESBL positive. Her kidney stones were previously managed by Dr. Ceballos. She is in the hospital now after having had a 4-vessel coronary artery bypass graft by Dr. Ledbetter. I was called to investigate regarding the ongoing persistent urinary tract infections. A CT scan of the abdomen and pelvis revealed a large stone burden on the right kidney. Undoubtedly, these stones are infected and the cause of the ongoing urinary tract infections. She is currently on piperacillin given every 8 hours. We will proceed with a right percutaneous nephrolithotomy to try to render her stone free in one session. The lower pole stone was about 9 mm in size. The mid pole stone is 6 mm in size and there are 2 small upper pole stones, which are 1 to 2 mm in size. Because of the geometry of the renal calices, we could not access both the larger stones with 1 access. Therefore, interventional radiology earlier today placed an access into the mid pole stone and another access into the lower pole stone calyx. We will try to swing up from there into the upper pole calices. Since she was already on piperacillin on the floor, we did not give her any further antibiotics to the OR. She is allergic to codeine. DESCRIPTION OF PROCEDURE: The patient was given induction of general anesthesia while in supine position on the stretcher. Her legs were then put in frog-leg position. She was prepped and draped. The cystoscope was placed into the bladder. The 2 nephroureteral stents were seen. The distal ends were pulled out through the urethra using grasping forceps. In this way, when we placed the wire through the nephroureteral catheter, we can clamp the wire below and prevent loss of the access tract. The patient was then turned onto the prone position on the Harshil frame. She was prepped and draped. The mid pole access tract was accessed first. An Amplatz Super Stiff wire was placed down this nephroureteral catheter. The circulating nurse then placed a clamp on the distal end of the wire as it protruded out through the urethra. The nephroureteral catheter was then removed entirely. A small incision was made on either side of the wire using a #15 blade. A dual-lumen catheter was then placed over the wire into the proximal ureter. Through the second lumen, we placed a Sensor wire down into the bladder to serve as a safety wire. Once the OPERATIVE REPORT [id number] RADHA PABLO [address], the dual-lumen catheter was removed, leaving the wires stationary. The safety wire was clamped to the drapes and we worked over the Super Stiff wire. The balloon dilator was placed over the Super Stiff wire. This is a NephroMax dilator. The tract was dilated with 20 atmospheres of pressure. The 30-Pu[place]ican working sheath was then slid down over the balloon. Once the sheath was in correct position, we then deflated the balloon and removed it entirely. The nephroscope was then placed. We started at the ureteropelvic junction and worked our way laterally out towards the periphery of the kidney. I scoped as best as I could the upper pole calices. There is one upper pole timothy with a rather tight infundibulum that I cannot get through with the nephroscope. However, the other calices that I could see did not contain the stone. We did find the mid pole stone. This was retrieved using grasping forceps and sent to pathology for identification. Because of the geometry of the intervening tissue between the mid and lower pole, I could not get at the lower pole timothy through the mid pole access. Therefore, we repeated the tract dilation on the lower pole access. The sheath was then transferred to the lower pole access. Here, we found the collection of stones in the lower pole. Because of the difficulty in getting all these smaller stones with the grasper, the Moldovan LithoClast ultrasonic modality was used to break up the stones and remove all the fragments out with the suction at the same time. Eventually, we rendered the lower pole stone-free. I suspect that the upper pole stones may actually have migrated out and joined the lower pole stones. However, since there was one timothy that I could not get access into due to infundibular stenosis, I will probably have to repeat imaging postoperatively to verify if the stones in the upper pole are still present. Nevertheless, from what I could scope, no further stones were seen. At this point, scope was removed. A 24-Pu[place] Malecot nephrostomy tube was inserted down via the working sheath into the renal pelvis. The working sheath and all of the wires were then entirely removed. The mid pole tract was closed using simple interrupted 2-0 nylon. The nephrostomy tube in the lower pole access was sutured to the skin using 2-0 nylon. Dressings of 4 x 4 gauze and ABD pad and tape were applied. The patient was then awakened and brought back to the recovery room. After cystoscopy, it should be noted that we did insert a new Granados catheter for her. She has an indwelling Granados catheter. TRANSINT:[id number] Voice Confirmation ID: [id number] DOCUMENT ID: [id number] ANTWON SHAH MD at 0753 CC: [id number] DICTATION DATE: 09/17/171843 VIDEO GAME PROGRAMMER: 09/18/17 0012 ADM IN [facility] [address] [place] [address]
--- NOTE | ~2017-09-14 | HEMODYNAMI ---
PATIENT:RADHA PABLO MEDICAL RECORD: [id number] : 41 LOCATION:D.MS [facility] ADMISSION DATE: 09/14/17 Generatedon:09/17/201711:57 Patient name: RADHA PABLO Patient #: [id number] SSN: DO B: 1945 Date of study: 09/17/2017 Page: Of Hemodynamic Procedure Report Patient Data Patient Demographics Procedure consent was obtained First Name: RADHA Gender: Female Last Name: BEV : 1945 [facility] Initial: KRIS Age: 72 year(s) Patient #: [id number] Race: Unknown Additional ID: [id number] Contact details Address: [address] [place] [address] State: [place] City: [place] Zip code: [address] Past Medical History Allergies Allergen Reaction Date Comments Reported Codeine 08/06/2017 Codeine 09/17/2017 Admission Admission Data Admission Date: 09/14/2017 Admission Time: 13:26 Room #: D.2207 Procedure Procedure Types Cath Procedure Peripheral Cath Diagnostic Procedure Nephro Perc Neph Uret Cath Procedure Description Procedure Date Procedure Date: 09/17/2017 Procedure Start Time: 11:17 Procedure End Time: 11:56 Procedure Staff Name Function Jamel Garner MD Performing Physician Linda Murillo RT Monitor Felicity Garber RN Nurse Claude Solorio RT Scrub Procedure Data Cath Procedure Fluoroscopy Diagnostic fluoroscopy Total fluoroscopy Time: time: 10.1 min 10.1 min Diagnostic fluoroscopy Total fluoroscopy dose: 265 dose: 265 mGy mGy Contrast Material Contrast Material Type Amount (ml) Isovue 300 65 Diagnostic catheters Device Type Used For End Catheter Placement Merit Impress KA2 5Fr 65CM catheter ([id number]) Merit Impress KA2 5Fr 65CM catheter ([id number]) Procedure Medications Medication Administration Route Dosage Heparin Flush Bag added to field 1 bags (1000units/500ml NS) Lidocaine 1% added to field 20 unlisted medication 1 Versed I.V. 1 mg Fentanyl I.V. 50 mcg Versed I.V. 1 mg Fentanyl I.V. 50 mcg Versed I.V. 1 mg Fentanyl I.V. 50 mcg Hemodynamics Rest Heart Rate: 53 (bpm) Snapshots Pre Cath Intra NCS Post Cath Vital Signs Time Heart Resp SPO2 etCO2 NIBP (mmHg) Rhythm Pain Status Sedation Rate (ipm) (%) (mmHg) Level (bpm) 11:10:51 54 24 97 20.2 Measuring NSR 3 (11) , 10(A) Tolerable 11:11:25 54 24 96 19.5 210/83(155) NSR 3 (11) , 10(A) Tolerable 11:16:00 54 17 96 27 203/92(163) NSR 2 (11) , 10(A) Uncomfortable 11:20:59 52 17 92 27.7 Measuring NSR 2 (11) , 10(A) Uncomfortable 11:21:26 52 15 93 28.5 179/92(153) NSR 1 (11) , Very 8(A) mild 11:26:25 53 18 92 26.2 Measuring NSR 1 (11) , Very 8(A) mild 11:27:02 52 17 92 25.5 189/55(143) NSR 2 (11) , 8(A) Uncomfortable 11:31:28 53 16 92 26.2 195/92(152) NSR 2 (11) , 8(A) Uncomfortable 11:36:27 53 17 93 25.5 Measuring NSR 0 (11) , No 10(A) pain 11:36:45 53 17 93 24.7 196/103(161) NSR 0 (11) , No 10(A) pain 11:41:09 52 10 82 24.7 184/92(155) NSR 0 (11) , No 10(A) pain 11:46:09 50 9 89 27 Measuring NSR 0 (11) , No 10(A) pain 11:46:29 50 9 91 29.2 170/82(142) NSR 0 (11) , No 10(A) pain 11:50:55 51 10 91 33 167/76(132) NSR 0 (11) , No 10(A) pain 11:55:20 91 32.2 165/83(128) NSR 0 (11) , No 10(A) pain Medications Time Medication Route Dose Verified Delivered Reason Notes Effec tiveness by by 11:09:39 Heparin Flush added 1 Jamel Mccullough used for Bag to bags Pascual Garner procedure (1000units/500ml field MD NSOWDEN NS) 11:09:52 Lidocaine 1% added 20ml Jamel Mccullough used for to vial Pascual Garner procedure field MD SNOWDEN 11:10:19 cefepime iv 1 gm Jamel Blevins used for Pascual Jcarlos hot kettle tender 11:13:49 Versed I.V. 1 mg Jamel Blevins for Pascual Jcarlos RN sedation 11:14:04 Fentanyl I.V. 50 Jamel Felicity for mcg Pascual Jcarlos RN sedation 11:33:07 Versed I.V. 1 mg Jamel Blevins for Pascualvince Lower RN sedation 11:33:13 Fentanyl I.V. 50 Jamel Felicity for mcg Pascual Jcarlos RN sedation 11:35:02 Versed I.V. 1 mg Jamel Blevins for Pascual Jcarlos RN sedation 11:35:09 Fentanyl I.V. 50 Jamel Felicity for mcg Pascual Jcarlos RN sedation Procedure Log Time Note 10:50:50 Diagnostic Cath Status : Elective 10:52:37 Claude Solorio RT (R) (CV) sent for patient. Start room use. 10:52:42 Time tracking: Regular hours (M-F 7:00 - 5:00) 10:52:55 Plan of Care:Hemodynamics will remain stable., Cardiac rhythm will remain stable., Comfort level will be maintained., Respiratory function will remain adequate., Patient/ family verbilizes understanding of procedure., Procedure tolerated without complication., Recovers from procedure without complications.. 10:53:16 Patient received from Med/Surg to IR Alert and oriented. Tansferred to table in Prone position. 10:53:18 Warm blankets applied, and alpa hugger turned on for patient comfort. 10:53:22 Correct patient and procedure confirmed by team. 10:53:26 Signed procedure consent form obtained from patient. 10:53:34 - 10:53:56 H&P Date Dictated: 09/17/2017 Within 30 days and on chart.. 10:53:59 Pre-procedure instructions explained to patient. 10:54:00 Pre-op teaching completed and patient verbalized understanding. 10:54:06 Family in waiting room. 10:54:10 Patient NPO since Midnight. 10:57:35 Patient allergic to Codeine 10:57:46 Is the patient allergic to Iodine/contrast media? No. 10:58:11 Patient diabetic? Yes. 10:58:58 If diabetic: On Metformin? No 10:59:08 Is patient on blood thinner?Yes 10:59:35 ACC The patient was administered the following blood thiners within the last 24 hours: ACCAspirin 10:59:39 ----Pre-sedation anethsthesia assessment.---- 10:59:47 Previous problem with sedation/anesthesia? No ? 10:59:51 Snore? No 10:59:56 Sleep apnea? No 10:59:59 Deviated septum? No 11:00:02 Opens mouth fully? Yes 11:00:05 Sticks out tongue? Yes 11:00:16 Airway obstruction? No, but feel short of breath ? 11:00:20 Dentures? No ? 11:01:07 Patient pain scale 8/10 low back pain. 11:01:23 IV patent on arrival in right hand with 0.9% NaCl at O. 11:02:13 Lumbar area was prepped with chlora-prep and draped in sterile fashion 11:02:16 Alarms reviewed by R. N. 11:02:18 Sharps counted by scrub and verified by R.N. 11:06:40 Use device set IR Diagnostic 11:06:49 Bag Decanter (2002S) opened to sterile field. 11:06:50 Sterile Angiographic Pack opened to sterile field. 11:06:53 Tegaderm 4 x 4 ([id number]) opened to sterile field. 11:07:35 ECG and BP/O2 sat monitors applied to patient. 11:09:01 Vital chart was started 11:09:39 Heparin Flush Bag (1000units/500ml NS) 1 bags added to field was administered by Jamel Garner MD; used for procedure; 11:09:52 Lidocaine 1% 20ml vial added to field was administered by Jamel ferguson MD; used for procedure; 11:10:19 cefepime 1 gm iv was administered by Felicity Garber RN; used for procedure; 11:10:53 Physician arrived 11:11:33 --------ALL STOP TIME OUT------ 11:11:34 Final Timeout: patient, procedure, and site verified with staff and physician. All members of the team are in agreement. 11:11:45 Lumbar site verified by team. 11:11:58 Sedation plan: IV Moderate Sedation Medication:Versed, Fentanyl 11:13:49 Versed 1 mg I.V. was administered by Felicity Garber RN; for sedation; 11:14:04 Fentanyl 50 mcg I.V. was administered by Felicity Garber RN; for sedation ; 11:14:38 Procedure started. 11:14:39 Full Disclosure recording started 11:16:37 A Jubilater Interactive Media Impress KA2 5Fr 65CM catheter ([id number]) was added to field. 11:16:41 CHIBA 20 X 15 needle opened to sterile field. 11:16:44 KIT, INTRODUCER ACCUSTICK II W/C ([id number]) opened to sterile field. 11:17:53 Local anesthetic to Lumbar area with Lidocaine 1% by Jamel Garner MD.INITIAL ACCESS ONLY 11:19:41 NITINOL .018 80cm wire ([id number]) opened to sterile field. 11:20:16 Baseline sample Acquired. 11:22:04 The chiba 20g by 15 cm needle is used to obtain access to the Right kidney. 11:22:47 The nitrex .018 wire is advanced down the right ureter. 11:25:16 Local anesthetic to Lumbar area with Lidocaine 1% by Jamel Garner MD.ADDITIONAL ACCESS 11:27:15 A Jubilater Interactive Media Impress KA2 5Fr 65CM catheter ([id number]) was opened to the field. 11:27:18 KIT, INTRODUCER ACCUSTICK II W/C ([id number]) opened to sterile field. 11:29:06 The 20g by 15cm Chiba needle is advanced to gain a Second access to the right kidney. 11:31:24 GLIDE WIRE GT ANGLED 45 DEGREE .018 ([id number]) opened to sterile field. 11:33:07 Versed 1 mg I.V. was administered by Felicity Garber RN; for sedation; 11:33:13 Fentanyl 50 mcg I.V. was administered by Felicity Garber RN; for sedation ; 11:35:02 Versed 1 mg I.V. was administered by Felicity Garber RN; for sedation; 11:35:09 Fentanyl 50 mcg I.V. was administered by Felicity Garber RN; for sedation ; 11:38:48 the 45 degree angled glide is used to manuver down the ureter. 11:38:53 ROADRUNNER .035 145 glide wire ([id number]) opened to sterile field. 11:38:55 Tegaderm 6 x 8 (1628) opened to sterile field. 11:39:54 the roadrunner wire is advanced thru the accustick system for 2nd acces s to the right kidney. 11:44:57 Ka 2 5fr cath is in place in the right kidney. 11:45:38 The Ka 2 5 uzbek cath , second access is placed in the right kidney. 11:46:13 SUTURE ETHILON 2-0 BLK MONO FS opened to sterile field. 11:46:14 SUTURE ETHILON 2-0 BLK MONO FS opened to sterile field. 11:47:05 Both KA2 caths are stitched in with 2.[address] Garner. 11:47:35 Procedure ended.(Physican Out) 11:48:32 Fluoroscopy time 10.10 minutes. 11:48:40 Fluoroscopy dose: 265 mGy 11:48:40 Flurop Dose total: 265 11:48:49 Contrast amount:Isovue 300 65ml. 11:48:52 Sharps counted by scrub and verified by R.N. 11:49:19 Insertion/operative site no bleeding no hematoma. 11:49:30 Post-op/insertion site Right Lumbar area dressed using a 4 x 4 and Tegaderm. 11:49:55 Post Lumbar area:stable 11:50:07 Post procedure instruction explained to patient.Patient verbalizes understanding. 11:50:08 Patient needs reinforcement of post procedure teaching. 11:50:14 Procedure and supply charges have been captured, reviewed, submitted an d are correct. 11:56:41 Vital chart was stopped 11:56:43 See physician's report for complete and final results. 11:56:48 Report given to Med/Surg. 11:56:53 Patient transfered to Med/Surg with Bed. 11:56:58 Procedure ended. 11:56:58 Full Disclosure recording stopped Device Usage Item Name Manufacture Quantity Catalog Hospital Part Current Minim al Lot# / Number Charge Number Stock Stock Serial# Code Bag Decanter Microtek 1 [id number] 04600 [id number] 5 () Medical Inc. Sterile Cardinal 1 [id number] 506243 004528 5 Angiographic Health Pack Tegaderm 4 x 3M 1 1626W 655414 805019 062299 5 4 (1626W) Merit Impress Merit 2 [id number] 530648 942785 5 KA2 5Fr 65CM Medical catheter ([id number]) CHIBA 20 X 15 [facility] 1 [id number] 799679 655338 5 [id number] needle KIT, [place] 2 [id number] 560346 582656 443832 5 [id number] INTRODUCER Scientific [id number] ACCUSTICK II W/C ([id number]) NITINOL .018 Medtronic 1 [id number] 257170 640581 5 80cm wire (V052886) GLIDE WIRE GT Terumo 1 [id number] 251491 864473 5 611338 ANGLED 45 DEGREE .018 ([id number]) [facility] 1 V74693 126322 574058 849467 5 4010058 .035 145 glide wire ([id number]) Tegaderm 6 x 3M 1 1628 766307 420759 5 8 (1628) SUTURE Ethicon 2 664H 778329 314387 5 ETHILON 2-0 BLK MONO FS Signature Audit [place] Stage Time Signature Unsigned Intra-Procedure 09/17/2017 Linda 11:57:27 AM Lidia ANDERSON (R) (CV) Signatures Monitor : Linda Signature : Lidia RT Date : Time : [facility] [address] [place] [address]
--- NOTE | ~2017-09-14 | EC ---
PATIENT:RADHA PABLO DATE OF SERVICE: 09/14/17 SEX: F MEDICAL RECORD: [id number] DATE OF : 41 LOCATION:D.MS [facility] AGE OF PATIENT: 72 ADMISSION DATE: 09/14/17 REFERRING PHYSICIAN: INTERPRETING PHYSICIAN: DIANA BLAND MD ECHOCARDIOGRAM REPORT ECHO CHARGES 5 ECHO LIMITED Date: 09/20 CLINICAL DIAGNOSIS: CHF/ ASSESS EF ECHOCARDIOGRAPHIC MEASUREMENTS (adult normal given) AC root (d.<3.7cm) 3.5 cm LV Septum d (<1.2 cm> 1.5 cm Valve Excursion 1.4 cm LV Septum (systole) 1.8 cm Left Atria (s.<4.0cm> 4.1 cm LVPW d(<1.2cm) 1.6 cm RV (d.<2.3cm) 3.0 cm LVPW (sytole) 1.7 cm LV diastole(<5.6CM) 4.6 cm MV E-F(>70mm/sec) cm LV systole 2.8 cm LVOT Diameter 1.8 cm MV exc.(>10mm) cm Est.ejection fraction (50-75%) % DOPPLER: LVIT cm/sec A cm/sec E cm/sec LA cm/sec RVSP 50 mmHg LVOT cm/sec AOP1/2T m/s Asc. Ao cm/sec RVOT cm/sec RA cm/sec PA cm/sec AV Gradient Peak mmHg AV Mean mmHg AV Area cm MV Gradient Peak mmHg MV Mean mmHg MV Area cm COMMENTS: Winch Truck Operator: Shawna SNYDER Basket Assembler: 1 Dr. Bland TAPE# PACS Pericardial Effusion N DATE OF SERVICE: 09/20/2017 ECHOCARDIOGRAM FINDINGS: 1. Left ventricular chamber size is within normal limits. Left ventricular systolic function is normal. Overall ejection fraction estimated at 60%. 2. Left atrium is enlarged at 4.1 cm. Right atrium and right ventricle chamber sizes were as well mildly dilated. 3. Valvular structures have normal structure and motion. ECHOCARDIOGRAM REPORT [id number] RADHA PABLO KRIS 4. Doppler interrogation reveals mild mitral regurgitation, moderate tricuspid regurgitation, no other valvular insufficiency or stenosis. Pulmonary systolic pressure is elevated estimated at 50 mmHg. 5. No evidence of pericardial effusion or left ventricular thrombus. TRANSINT:[id number] Voice Confirmation ID: [id number] DOCUMENT ID: [id number] DIANA BLAND MD at 1325 CC: [id number] DICTATION DATE: 09/21/17 1105 RN SURGICAL: 09/21/17 1202 DIS IN 09/22/17 [place] [id number] [place] [id number]
[2017-09-14 16:02] VITALS: BP 149/65
[2017-09-14 19:47] VITALS: BP 94/61
[2017-09-14 23:37] VITALS: BP 161/74
[2017-09-15 03:39] VITALS: BP 118/67
[2017-09-15 08:20] VITALS: BP 161/66
[2017-09-15 12:06] VITALS: BP 155/68
[2017-09-15 13:41] VITALS: BMI 27.0
[2017-09-15 16:41] VITALS: BP 178/64
[2017-09-15 21:09] VITALS: BP 174/66
[2017-09-16] VITALS (7 sets, daily range): BP systolic 154–187; BP diastolic 61–77; Ht 172.7 cm; Wt 79.7 kg
[2017-09-16 05:42] LABS: BASOPHILS 0.5 % (0-2); EOSINOPHILS 4.1 % (0-7); HEMATOCRIT 30.3 % (36.0-48.0); HEMOGLOBIN 9.9 g/dL (12-16); IMMATURE GRANULOCYTES 0.3 % (0-5); LYMPHOCYTES 18.3 % (15-50); MCH 29.3 pg (26.0-34.0); MCHC 32.7 g/dL (31.0-37.0); MCV 89.6 fL (80.0-100.0); MEAN PLATELET VOLUME 10.5 fL (7.4-10.4); MONOCYTES 10.3 % (2-11); NEUTROPHILS 66.5 % (40-80); PLATELET COUNT 377 10x3/uL (130-400); RBC 3.38 10x6/uL (4.00-5.40); RDW 18.9 % (11.5-14.5); WBC 7.8 10x3/uL (4.8-10.8)
[2017-09-16 06:19] LABS: ANION GAP 17.5 mmol/L (8-16); CALCIUM 8.8 mg/dL (8.5-10.1); CARBON DIOXIDE 20.9 mmol/L (21.0-32.0); POTASSIUM - SERUM 4.4 mmol/L (3.5-5.1)
[2017-09-17] VITALS (15 sets, daily range): BP systolic 110–184; BP diastolic 39–94
[2017-09-17 05:45] LABS: BASOPHILS 0.5 % (0-2); EOSINOPHILS 4.5 % (0-7); HEMATOCRIT 31.1 % (36.0-48.0); HEMOGLOBIN 9.9 g/dL (12-16); IMMATURE GRANULOCYTES 0.3 % (0-5); LYMPHOCYTES 16.3 % (15-50); MCH 28.5 pg (26.0-34.0); MCHC 31.8 g/dL (31.0-37.0); MCV 89.6 fL (80.0-100.0); MEAN PLATELET VOLUME 10.2 fL (7.4-10.4); MONOCYTES 11.6 % (2-11); NEUTROPHILS 66.8 % (40-80); PLATELET COUNT 372 10x3/uL (130-400); RBC 3.47 10x6/uL (4.00-5.40); RDW 19.7 % (11.5-14.5); WBC 7.8 10x3/uL (4.8-10.8)
[2017-09-17 05:55] LABS: APTT 30.4 SECONDS (22.8-39.4); INR 1.4 (0.85-1.17); PROTIME 16.6 SECONDS (11.6-15.0)
[2017-09-17 06:01] LABS: ANION GAP 15.4 mmol/L (8-16); CALCIUM 8.6 mg/dL (8.5-10.1); CARBON DIOXIDE 21.6 mmol/L (21.0-32.0); CREATININE - SERUM 1.9 mg/dL (0.6-1.3)
[2017-09-18] VITALS (8 sets, daily range): BP systolic 111–146; BP diastolic 45–98
[2017-09-19] VITALS: BP 136/56
[2017-09-19 04:59] VITALS: BP 144/78
[2017-09-19 07:18] LABS: BASOPHILS 0.4 % (0-2); EOSINOPHILS 3.4 % (0-7); HEMOGLOBIN 9.1 g/dL (12-16); IMMATURE GRANULOCYTES 0.2 % (0-5); LYMPHOCYTES 11.2 % (15-50); MCH 28.8 pg (26.0-34.0); MCHC 31.4 g/dL (31.0-37.0); MCV 91.8 fL (80.0-100.0); MEAN PLATELET VOLUME 10.4 fL (7.4-10.4); MONOCYTES 14.2 % (2-11); NEUTROPHILS 70.6 % (40-80); RBC 3.16 10x6/uL (4.00-5.40); WBC 10.3 10x3/uL (4.8-10.8)
[2017-09-19 07:25] LABS: PLATELET COUNT 269 10x3/uL (130-400)
[2017-09-19 07:30] LABS: ANION GAP 14.1 mmol/L (8-16); CALCIUM 8.5 mg/dL (8.5-10.1); CARBON DIOXIDE 21.1 mmol/L (21.0-32.0); CREATININE - SERUM 2.6 mg/dL (0.6-1.3); POTASSIUM - SERUM 4.2 mmol/L (3.5-5.1)
[2017-09-19 15:03] VITALS: BP 114/51
[2017-09-19 18:07] VITALS: BP 160/62
[2017-09-19 21:17] VITALS: BP 162/64
[2017-09-20 04:50] VITALS: BP 183/73
[2017-09-20 05:41] LABS: BASOPHILS 0.4 % (0-2); EOSINOPHILS 4.4 % (0-7); HEMATOCRIT 28.5 % (36.0-48.0); HEMOGLOBIN 8.9 g/dL (12-16); IMMATURE GRANULOCYTES 0.4 % (0-5); LYMPHOCYTES 13.4 % (15-50); MCH 28.3 pg (26.0-34.0); MCHC 31.2 g/dL (31.0-37.0); MCV 90.8 fL (80.0-100.0); MEAN PLATELET VOLUME 10.5 fL (7.4-10.4); MONOCYTES 12.8 % (2-11); NEUTROPHILS 68.6 % (40-80); PLATELET COUNT 273 10x3/uL (130-400); RBC 3.14 10x6/uL (4.00-5.40); RDW 19.4 % (11.5-14.5); WBC 8.4 10x3/uL (4.8-10.8)
[2017-09-20 05:42] VITALS: BP 183/73
[2017-09-20 06:11] LABS: CALCIUM 8.3 mg/dL (8.5-10.1); CARBON DIOXIDE 24.7 mmol/L (21.0-32.0); CREATININE - SERUM 2.4 mg/dL (0.6-1.3); POTASSIUM - SERUM 3.7 mmol/L (3.5-5.1)
[2017-09-20 08:30] VITALS: BP 187/65
[2017-09-20 12:45] VITALS: BP 168/68
[2017-09-20 16:31] VITALS: BP 148/56
[2017-09-20 21:19] VITALS: BP 140/60
[2017-09-21 01:10] LABS: APPEARANCE TURBID (CLEAR); BILIRUBIN NEGATIVE (NEGATIVE); COLOR DK YELLOW (YELLOW); GLUCOSE NEGATIVE (NEGATIVE); KETONE NEGATIVE (NEGATIVE); NITRITE NEGATIVE (NEGATIVE); PROTEIN 1+ mg/dL (NEGATIVE); SPECIFIC GRAVITY 1.015 (1.005-1.020); UROBILINOGEN NORMAL (NORMAL)
[2017-09-21 01:12] LABS: BACTERIA MANY /hpf (NONE SEEN); EPITHELIAL CELLS 0-5 /hpf (0-5); RED CELLS - URINE >50 /hpf (0-5)
[2017-09-21 01:16] LABS: CREATININE - URINE 57.8 mg/dL (30-125)
[2017-09-21 06:57] VITALS: BP 154/80
[2017-09-21 09:23] VITALS: BP 159/55
[2017-09-21 12:48] VITALS: BP 134/57
[2017-09-21 13:23] LABS: BASOPHILS 0.1 % (0-2); EOSINOPHILS 4.6 % (0-7); HEMATOCRIT 29.9 % (36.0-48.0); HEMOGLOBIN 9.6 g/dL (12-16); IMMATURE GRANULOCYTES 0.3 % (0-5); LYMPHOCYTES 10.5 % (15-50); MCH 28.8 pg (26.0-34.0); MCHC 32.1 g/dL (31.0-37.0); MCV 89.8 fL (80.0-100.0); MEAN PLATELET VOLUME 10.2 fL (7.4-10.4); MONOCYTES 11.3 % (2-11); NEUTROPHILS 73.2 % (40-80); PLATELET COUNT 275 10x3/uL (130-400); RBC 3.33 10x6/uL (4.00-5.40); RDW 19.6 % (11.5-14.5); WBC 6.9 10x3/uL (4.8-10.8)
[2017-09-21 13:39] LABS: ALBUMIN 2.6 g/dL (3.4-5.0); ANION GAP 10.7 mmol/L (8-16); BILIRUBIN - TOTAL 0.61 mg/dL (0.2-1.3); CALCIUM 8.3 mg/dL (8.5-10.1); CARBON DIOXIDE 29.1 mmol/L (21.0-32.0); MAGNESIUM - SERUM 1.6 mg/dL (1.8-2.4); PHOSPHOROUS 2.4 mg/dL (2.5-4.9); PROTEIN - SERUM 6.8 g/dL (6.4-8.2)
[2017-09-21 13:41] LABS: POTASSIUM - SERUM 2.8 mmol/L (3.5-5.1)
[2017-09-21 17:13] VITALS: BP 145/46
[2017-09-21 20:24] VITALS: BP 132/59
[2017-09-21 22:51] VITALS: BP 132/59
[2017-09-22 03:59] VITALS: BP 139/59
[2017-09-22 06:30] LABS: BASOPHILS 0.4 % (0-2); HEMOGLOBIN 8.9 g/dL (12-16); IMMATURE GRANULOCYTES 0.3 % (0-5); LYMPHOCYTES 19.3 % (15-50); MCH 28.5 pg (26.0-34.0); MCHC 31.8 g/dL (31.0-37.0); MCV 89.7 fL (80.0-100.0); MEAN PLATELET VOLUME 10.6 fL (7.4-10.4); MONOCYTES 12.5 % (2-11); NEUTROPHILS 61.5 % (40-80); PLATELET COUNT 291 10x3/uL (130-400); RBC 3.12 10x6/uL (4.00-5.40); RDW 19.9 % (11.5-14.5); WBC 7.5 10x3/uL (4.8-10.8)
[2017-09-22 06:43] LABS: ALBUMIN 2.5 g/dL (3.4-5.0); ANION GAP 10.7 mmol/L (8-16); BILIRUBIN - TOTAL 0.66 mg/dL (0.2-1.3); CALCIUM 8.3 mg/dL (8.5-10.1); CARBON DIOXIDE 28.9 mmol/L (21.0-32.0); POTASSIUM - SERUM 3.6 mmol/L (3.5-5.1); PROTEIN - SERUM 6.5 g/dL (6.4-8.2)
[2017-09-22 08:36] VITALS: BP 165/60
[2017-09-22 10:15] LABS: OSMOLALITY - SERUM 264 (280-301)
[2017-09-22 12:24] VITALS: BP 152/67
[2017-09-22] MEDS ORDERED: LOVENOX30 MG/0.3 SC (14:58)
[2017-09-22] MEDS ORDERED: NORVASC10 MG PO (14:58)
[2017-09-22] MEDS ORDERED: LASIX40 MG PO (15:00)
[2017-09-22] MEDS ORDERED: PULMICORT0.5 MG/21 INH (15:01)
[2017-09-22] MEDS ORDERED: ATROVENT 0.02%2.5 ML UPD (15:03)
[2017-09-22] MEDS ORDERED: XOPENEX 0.0.63 MG/3 UPD (15:04)
[2017-09-22] MEDS ORDERED: ZOSYN 3.3753.375 G1 IV (15:11)
[2017-09-22] MEDS ORDERED: ACETAMINOPHEN325 MG PO (15:12)
[2017-09-22] MEDS ORDERED: K-DUR20 MEQ PO (15:13)
[2017-09-22] MEDS ORDERED: SALINE NASAL SP45 ML NS (15:16)
[2017-09-22] MEDS ORDERED: AFRIN NASAL SPR15 ML NASAL (15:19)
[2017-09-22] MEDS ORDERED: ZOFRAN4 MG PO (15:20)
[2017-09-22 16:14] VITALS: BP 140/69
[2017-09-23 13:21] LABS: OSMOLALITY - URINE 371 (())
[2017-09-26 10:24] LABS: CALCULI - CA OXALATE MONOHYDR 90 % (()); CALCULI - CALCIUM PHOSPHATE 10 % (()); CALCULI - COLOR Brown (()); CALCULI - COMMENT Note: (()); CALCULI - WEIGHT 110.4 mg (())
== END 2017-09-22 18:15 | DRG 659 ==
LOC: D.MS 13:26
PROVIDERS: Internal Medicine; Internal Medicine Pulmonary Disease; Radiology Diagnostic Radiology; Student in an Organized Health Care Education/Training Program; Urology
PROC: B54NZZA Ultrasonography of Left Upper Extremity Veins, Guidance (ICD-10-PCS; 2017-09-17)
PROC: 0T9330Z Drainage of Right Kidney Pelvis with Drainage Device, Percutaneous Approach (ICD-10-PCS; 2017-09-17)
PROC: BT1D1ZZ Fluoroscopy of Right Kidney, Ureter and Bladder using Low Osmolar Contrast (ICD-10-PCS; 2017-09-17)
PROC: 05HC33Z Insertion of Infusion Device into Left Basilic Vein, Percutaneous Approach (ICD-10-PCS; principal; 2017-09-19)
PROC: 0TC08ZZ Extirpation of Matter from Right Kidney, Via Natural or Artificial Opening Endoscopic (ICD-10-PCS; 2017-09-19)
PROC: 0TP5X0Z Removal of Drainage Device from Kidney, External Approach (ICD-10-PCS; 2017-09-22)
DX: N20.0 Calculus of kidney (principal); I50.41 Acute combined systolic (congestive) and diastolic (congestive) heart failure; J96.01 Acute respiratory failure with hypoxia; J98.11 Atelectasis; N17.9 Acute kidney failure, unspecified; Z87.442 Personal history of urinary calculi; Z87.440 Personal history of urinary (tract) infections; B96.20 Unspecified Escherichia coli [E. coli] as the cause of diseases classified elsewhere; I07.1 Rheumatic tricuspid insufficiency; I27.20 Pulmonary hypertension, unspecified; D64.9 Anemia, unspecified; E87.6 Hypokalemia; K21.9 Gastro-esophageal reflux disease without esophagitis; K44.9 Diaphragmatic hernia without obstruction or gangrene; N18.3 Chronic kidney disease, stage 3 (moderate); F41.9 Anxiety disorder, unspecified; F32.9 Major depressive disorder, single episode, unspecified

== ENCOUNTER 2017-09-22 18:15 | Inpatient (IN) | payer MEDICARE, BC ==
[~2017-09-22] VITALS: Ht 172.7 cm; Wt 74.8 kg
--- NOTE | ~2017-09-22 | RHP ---
PATIENT: RADHA PABLO MEDICAL RECORD: [id number] ACCOUNT: [id number] LOCATION:[facility]1110 : 41 ADMISSION DATE: 09/22/17 REHABILITATION HISTORY AND PHYSICAL EXAMINATION POST ADMISSION PHYSICIAN EXAMINATION DATE OF ADMISSION: 09/22/2017 ADMITTING DIAGNOSIS: Acute congestive heart failure. HISTORY OF PRESENT ILLNESS: The patient is a 72-year-old female, admitted to inpatient rehab with the working diagnosis of congestive heart failure. She is a 72-year-old female patient who was originally admitted on 08/27/2017 for coronary artery bypass grafting times 4. Urinalysis showed pyuria on 08/28/2017. Urine culture grew out ESBL-positive E. coli, chronic contact isolation precautions. She reported that she had a history of frequent urinary tract infection. She was transferred to the acute inpatient rehab, was later transferred back to the acute hospital to have the impacted ureteral stone removed. She has remaining stones in the kidney that would later be removed per urology but will need to be on IV antibiotics until that can be removed. She was admitted back to acute inpatient rehab but was found to be hypoxic. Her O2 sats in the 70s requiring oxymizer oxygen. She did require O2 sats. She has been weaned down to 2 liters. She was found to have a positive D-dimer but no clot was found upon the scan. Her proBNP has been elevated, found to have CHF and was started on diuretic therapy, which has helped. She is currently on IV antibiotics, OT telemetry, acute blood loss anemia protocol, some confusion. She has had some self-care deficit and debility. She has proximal muscle weakness with difficulty rising from bed to chair. She progressed well with therapy on our acute unit and she and her want her to return home from our acute rehab after she has completed her stay to recover from her coronary artery bypass grafting and get back to her prior level of function. She was moderately independent to independent with her mobility, with the use of rolling walker was independent, moderately independent with ADLs, currently set up for mod assist with her ADLs and mod assist with her mobility. She has macular degeneration. 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 She wants to return home after her acute rehab stay back to her prior level of functioning. COMORBIDITIES: Include diabetes, systolic and diastolic heart failure, pleural effusion, bibasilar atelectasis, tricuspid valve regurgitation, pulmonary hypertension, pyelonephritis, chronic kidney disease, hypertension, renal stones, chronic renal insufficiency, positive D-dimer, gastroesophageal reflux disease, hypokalemia, hypothyroidism, acute kidney injury, degenerative joint disease, anxiety, history of atrial fibrillation, anemia, and debility. PAST MEDICAL HISTORY: Significant for TIA, vertigo, macular degeneration, diabetes, thyroid problems, hypertension, coronary artery disease, dyspnea, chest pain, acute reflux, constipation, depression, and anxiety. PAST SURGICAL HISTORY: Includes hysterectomy and recent coronary artery bypass grafting. ALLERGIES: CODEINE. CURRENT MEDICATIONS: She is currently on an electrolyte replacement protocol at HISTORY AND PHYSICAL [id number] RADHA PABLO this time. She is on Xopenex and updrafts as needed, Pulmicort 0.5 mg b.i.d., Januvia 100 mg with breakfast, Protonix 40 mg daily, Synthroid 100 mcg daily, Atrovent updrafts with albuterol q.i.d. p.r.n., furosemide 40 mg daily, folate 1 mg daily, iron replacement daily, enoxaparin 30 mg subQ daily, citalopram 20 mg daily, aspirin chewable 81 mg daily, Norvasc 10 mg daily, tramadol 50 mg q. 4 hours as needed, saline nasal spray, potassium chloride 20 mEq b.i.d. She is on Zosyn 3.375 g IV q. 8 hours. She is on Afrin nasal spray p.r.n., Zofran 4 mg q. 6 hours p.r.n. Mycostatin 5 cc prior to meals and at bedtime, Relafen 500 mg b.i.d., metoprolol 12.5 mg b.i.d., Colace 100 mg b.i.d., Cordarone 200 mg b.i.d., Tylenol 650 mg q. 6 hours p.r.n., and MiraLax p.r.n. HABITS: No alcohol or tobacco use. FAMILY HISTORY: Noncontributory. SOCIAL HISTORY: The patient hopes to return back home with her family and get back to her prior level of functioning. REVIEW OF SYSTEMS: GENERAL: Does complain of weakness and fatigue. HEENT: Denies cold, cough, or congestion. CARDIOVASCULAR: Denies chest pain. PHYSICAL EXAMINATION: VITAL SIGNS: Stable, afebrile. GENERAL: Elderly female, in no acute distress. HEENT: Normocephalic and atraumatic. Mucosa moist. NECK: Supple. No lymphadenopathy. LUNGS: Clear at this time. HEART: Irregular rate and rhythm. ABDOMEN: Benign. EXTREMITIES: No clubbing, cyanosis or edema. NEUROLOGIC: She does have noted weakness and noted changes in her visual acuity, but she otherwise is within normal limits. ASSESSMENT: This is a 72-year-old female patient who presents to rehab with a working diagnosis of congestive heart failure complicated by coronary artery bypass grafting and also by recent infected ureteral stone. The patient has potential to make improvement. We instituted the following multidisciplinary therapies including, but not limited to physical, occupational, respiratory, speech, nutritional services, prosthetics, and orthotics. Given her complex medical condition and risk for more complications, rehabilitation services cannot be provided at a low level of care such as fdc facility. PLAN: 1. Admit to [facility] for intensive inpatient therapy to include the following disciplines: A. Physical therapy to improve gait, all transfer skills and bed mobility to a modified independent level. B. Occupational therapy to improve activities of daily living to a modified independent level. C. Case management to assist with discharge planning and placement options. D. Nutrition to assist with nutritional needs. E. Rehabilitation nursing to assist in monitoring the patient's underlying medical conditions and to assist with any type of bowel or bladder management. HISTORY AND PHYSICAL [id number] RADHA PABLO 2. The patient's current medication and medical care will be continued. 3. The patient will be placed on standard fall precautions. 4. The patient's estimated length of stay is approximately 7-10 days. 5. Will discuss the patient during care team staff meeting this week. We will continue on appropriate home medications, will continue on IV antibiotics, and follow up on Friday with the care team, will keep her family, particularly and children up-to-date on her care. TRANSINT:[id number] Voice Confirmation ID: [id number] DOCUMENT ID: [id number] CONTRERAS notes whether there has been none or any medical/functional change since admission: - No change since prescreen. CONTRERAS attests patient continues to be appropriate for IRF: - Continues to be appropriate. GUY PEOPLES MD at 0903 CC: [id number] DICTATION DATE: 09/23/17 0959 BODY SHOP FLOORPERSON: 09/23/17 1227 ADM IN [facility] [address] [place] [id number]
--- NOTE | ~2017-09-22 | DS ---
PATIENT:RADHA PABLO :41 MEDICAL RECORD: [id number] DISCHARGE SUMMARY ADMISSION DATE: 09/22/17 DISCHARGE DATE: 10/02/17 This is a discharge dated 10/02/2017 from inpatient rehabilitation. PRIMARY DIAGNOSES: Acute congestive heart failure with decreased ability to provide activities of daily living and significant debility. SECONDARY DIAGNOSIS: 1. Nephrolithiasis. 2. Chronic kidney disease stage III. 3. Acute blood loss anemia. 4. Coronary artery disease. 5. Diabetes. 6. Hypertension. 7. Hypothyroidism. 8. Extended-spectrum beta-lactamase positive Escherichia coli in the urine. 9. Transient ischemic attack. 10. Vertigo. 11. Macular degeneration. 12. Gastroesophageal reflux disease. 13. Depression/anxiety. CONSULTS THIS HOSPITALIZATION: 1. Nephrology with Dr. Ritchie. 2. Infectious disease with Dr. Claros. HOSPITAL COURSE: Full H&P is located elsewhere on the chart on this 72-year-old female who was admitted to inpatient rehab for physical therapy and occupational therapy to improve gait, transfer skills, bed mobility, and activities of daily living to a modified independent level. She was evaluated by PT and OT and their plans of care were followed. She required [facility] care for observation and assessment and medication administration. She was followed by Dr. Ritchie initially from a nephrology standpoint. Electrolytes were managed by protocol. Fingerstick blood sugars were monitored throughout her hospital stay with appropriate adjustment in medications as needed. She was on Zosyn for antibiotic coverage of UTI. She had nebulized medications for respiratory support. She was cooperative with therapies, progressing towards goals. Case management was involved for discharge planning. Infectious disease was consulted. She was seen by Dr. Claros for IV antibiotic recommendations for home administration. She was considered stable for discharge on 10/02/2017. DISCHARGE MEDICATIONS: As per discharge medication reconciliation. DISCHARGE DISPOSITION: The patient is discharged home. She will continue her current diet and level of activity. She will have home health for IV antibiotic administration and was discharged home on ertapenem to continue until follow up urology procedures in 2 weeks and then 8 weeks following that. She will follow up with primary care as directed. She will see infectious disease in 2 weeks and will see other specialists as directed. At least 30 minutes was spent in this discharge activity. TRANSINT:[id number] Voice Confirmation ID: [id number] DOCUMENT ID: [id number] DISCHARGE SUMMARY REPORT [id number] RADHA PABLO Dictated By: VINI MILES I have interviewed/examined the above patient and agree with these documented findings. GUY PEOPLES MD CC: [id number] DICTATION DATE: 11/23/171534 HEEL BUILDER MACHINE: 11/23/172152 DIS IN 10/02/17 [place] [id number] [place] [id number]
[~2017-09-22 18:15] MED LIST changes: +ACETAMINOPHEN325 MG PO; +AFRIN NASAL SPR15 ML NASAL; +ATROVENT 0.02%2.5 ML UPD; +K-DUR20 MEQ PO; +LASIX40 MG PO; +LOVENOX30 MG/0.3 SC; +NORVASC10 MG PO; +PULMICORT0.5 MG/21 INH; +SALINE NASAL SP45 ML NS; +XOPENEX 0.0.63 MG/3 UPD; +ZOFRAN4 MG PO
[2017-09-22 23:35] VITALS: BP 106/47; BMI 26.6
[2017-09-23 08:00] VITALS: BP 101/56
[2017-09-23 10:28] VITALS: Ht 172.7 cm; Wt 74.8 kg
[2017-09-23 12:56] LABS: BASOPHILS 0.4 % (0-2); EOSINOPHILS 5.4 % (0-7); HEMATOCRIT 30.8 % (36.0-48.0); HEMOGLOBIN 9.8 g/dL (12-16); IMMATURE GRANULOCYTES 0.2 % (0-5); LYMPHOCYTES 14.4 % (15-50); MCH 28.7 pg (26.0-34.0); MCHC 31.8 g/dL (31.0-37.0); MCV 90.3 fL (80.0-100.0); MEAN PLATELET VOLUME 10.4 fL (7.4-10.4); MONOCYTES 12.5 % (2-11); NEUTROPHILS 67.1 % (40-80); PLATELET COUNT 260 10x3/uL (130-400); RBC 3.41 10x6/uL (4.00-5.40); RDW 19.9 % (11.5-14.5); WBC 8.2 10x3/uL (4.8-10.8)
[2017-09-23 13:17] LABS: ANION GAP 9.2 mmol/L (8-16); CALCIUM 8.7 mg/dL (8.5-10.1); CARBON DIOXIDE 30.5 mmol/L (21.0-32.0); CREATININE - SERUM 1.9 mg/dL (0.6-1.3); POTASSIUM - SERUM 3.7 mmol/L (3.5-5.1)
[2017-09-23 20:15] VITALS: BP 138/52
[2017-09-24 08:00] VITALS: BP 118/45
[2017-09-24 09:52] LABS: BASOPHILS 0.4 % (0-2); EOSINOPHILS 4.9 % (0-7); HEMATOCRIT 29.4 % (36.0-48.0); HEMOGLOBIN 9.3 g/dL (12-16); IMMATURE GRANULOCYTES 0.3 % (0-5); MCH 28.4 pg (26.0-34.0); MCHC 31.6 g/dL (31.0-37.0); MCV 89.9 fL (80.0-100.0); MEAN PLATELET VOLUME 10.6 fL (7.4-10.4); MONOCYTES 10.4 % (2-11); PLATELET COUNT 235 10x3/uL (130-400); RBC 3.27 10x6/uL (4.00-5.40); RDW 19.7 % (11.5-14.5); WBC 7.3 10x3/uL (4.8-10.8)
[2017-09-24 10:00] LABS: ANION GAP 13.7 mmol/L (8-16); CALCIUM 8.7 mg/dL (8.5-10.1); CARBON DIOXIDE 27.8 mmol/L (21.0-32.0); POTASSIUM - SERUM 3.5 mmol/L (3.5-5.1)
[2017-09-24 19:00] VITALS: BP 142/49
[2017-09-25 08:00] VITALS: BP 133/51
[2017-09-25 19:00] VITALS: BP 129/57
[2017-09-26 07:02] LABS: BASOPHILS 0.4 % (0-2); EOSINOPHILS 5.6 % (0-7); HEMATOCRIT 29.1 % (36.0-48.0); HEMOGLOBIN 9.3 g/dL (12-16); IMMATURE GRANULOCYTES 0.4 % (0-5); LYMPHOCYTES 17.9 % (15-50); MCH 28.8 pg (26.0-34.0); MCV 90.1 fL (80.0-100.0); MONOCYTES 12.2 % (2-11); NEUTROPHILS 63.5 % (40-80); PLATELET COUNT 220 10x3/uL (130-400); RBC 3.23 10x6/uL (4.00-5.40); RDW 19.5 % (11.5-14.5); WBC 7.3 10x3/uL (4.8-10.8)
[2017-09-26 07:24] LABS: ANION GAP 12.7 mmol/L (8-16); CALCIUM 8.6 mg/dL (8.5-10.1); CARBON DIOXIDE 27.1 mmol/L (21.0-32.0); CREATININE - SERUM 2.2 mg/dL (0.6-1.3); POTASSIUM - SERUM 3.8 mmol/L (3.5-5.1)
[2017-09-26 08:00] VITALS: BP 142/57
[2017-09-26 19:00] VITALS: BP 130/58
[2017-09-27 20:00] VITALS: BP 138/59
[2017-09-28 07:51] VITALS: BP 112/47
[2017-09-28 19:50] VITALS: BP 127/59
[2017-09-29 07:19] LABS: BASOPHILS 0.4 % (0-2); HEMATOCRIT 31.3 % (36.0-48.0); HEMOGLOBIN 9.8 g/dL (12-16); IMMATURE GRANULOCYTES 0.3 % (0-5); MCH 28.4 pg (26.0-34.0); MCHC 31.3 g/dL (31.0-37.0); MCV 90.7 fL (80.0-100.0); MEAN PLATELET VOLUME 11.3 fL (7.4-10.4); MONOCYTES 10.1 % (2-11); NEUTROPHILS 70.2 % (40-80); PLATELET COUNT 259 10x3/uL (130-400); RBC 3.45 10x6/uL (4.00-5.40); RDW 19.1 % (11.5-14.5); WBC 6.7 10x3/uL (4.8-10.8)
[2017-09-29 07:43] LABS: CALCIUM 8.8 mg/dL (8.5-10.1); CARBON DIOXIDE 26.1 mmol/L (21.0-32.0); CREATININE - SERUM 2.4 mg/dL (0.6-1.3); POTASSIUM - SERUM 4.1 mmol/L (3.5-5.1)
[2017-09-29 08:23] VITALS: BP 133/50
[2017-09-29 19:00] VITALS: BP 144/59
[2017-09-30 08:28] VITALS: BP 130/59
[2017-09-30 19:00] VITALS: BP 124/55
[2017-10-01 07:02] LABS: BASOPHILS 0.4 % (0-2); HEMATOCRIT 30.1 % (36.0-48.0); HEMOGLOBIN 9.7 g/dL (12-16); IMMATURE GRANULOCYTES 0.1 % (0-5); MCHC 32.2 g/dL (31.0-37.0); MCV 90.1 fL (80.0-100.0); MEAN PLATELET VOLUME 11.3 fL (7.4-10.4); MONOCYTES 13.6 % (2-11); NEUTROPHILS 68.9 % (40-80); PLATELET COUNT 262 10x3/uL (130-400); RBC 3.34 10x6/uL (4.00-5.40); WBC 7.1 10x3/uL (4.8-10.8)
[2017-10-01 07:13] LABS: ANION GAP 13.5 mmol/L (8-16); CALCIUM 8.8 mg/dL (8.5-10.1); CARBON DIOXIDE 24.1 mmol/L (21.0-32.0); CREATININE - SERUM 2.1 mg/dL (0.6-1.3); POTASSIUM - SERUM 3.6 mmol/L (3.5-5.1)
[2017-10-01 08:19] VITALS: BP 123/52
[2017-10-01 19:00] VITALS: BP 125/53
[2017-10-02 08:25] VITALS: BP 145/58
[2017-10-02] MEDS ORDERED: LASIX20 MG PO (09:01)
[2017-10-02] MEDS ORDERED: K-DUR20 MEQ PO (09:01)
[2017-10-02] MEDS ORDERED: INVANZ 1 GM/NS 11 G1 IV (09:04)
[2017-10-02] MEDS ORDERED: INVANZ 1 GM/NS 11 G1 IVPB (13:51)
== END 2017-10-02 15:48 | disposition home health service (06) | DRG 291 ==
LOC: D.REHAB 18:15
PROVIDERS: Emergency Medicine
DX: I13.0 Hypertensive heart and chronic kidney disease with heart failure and stage 1 through stage 4 chronic kidney disease, or unspecified chronic kidney disease (principal); I50.41 Acute combined systolic (congestive) and diastolic (congestive) heart failure; N17.9 Acute kidney failure, unspecified; N12 Tubulo-interstitial nephritis, not specified as acute or chronic; N39.0 Urinary tract infection, site not specified; J44.1 Chronic obstructive pulmonary disease with (acute) exacerbation; E11.22 Type 2 diabetes mellitus with diabetic chronic kidney disease; I27.20 Pulmonary hypertension, unspecified; E03.9 Hypothyroidism, unspecified; K21.9 Gastro-esophageal reflux disease without esophagitis; E87.6 Hypokalemia; M19.90 Unspecified osteoarthritis, unspecified site; R53.81 Other malaise; D64.9 Anemia, unspecified; I48.91 Unspecified atrial fibrillation; F41.9 Anxiety disorder, unspecified; I07.1 Rheumatic tricuspid insufficiency; E11.65 Type 2 diabetes mellitus with hyperglycemia; N18.3 Chronic kidney disease, stage 3 (moderate)

== ENCOUNTER → 2017-10-06 17:54 | Outpatient (CLI) | payer MEDICARE, BC ==
[2017-09-23 10:28] VITALS: BMI 25.7
[~2017-10-06 17:54] MED LIST changes: +INVANZ 1 GM/NS 11 G1 IV; +INVANZ 1 GM/NS 11 G1 IVPB; +LASIX20 MG PO
[2017-10-06 18:06] LABS: BASOPHILS 0.6 % (0-2); EOSINOPHILS 4.1 % (0-7); HEMATOCRIT 32.8 % (36.0-48.0); HEMOGLOBIN 10.5 g/dL (12-16); IMMATURE GRANULOCYTES 0.4 % (0-5); LYMPHOCYTES 18.3 % (15-50); MCV 90.6 fL (80.0-100.0); MEAN PLATELET VOLUME 11.3 fL (7.4-10.4); MONOCYTES 7.9 % (2-11); NEUTROPHILS 68.7 % (40-80); RBC 3.62 10x6/uL (4.00-5.40); RDW 18.1 % (11.5-14.5); WBC 7.8 10x3/uL (4.8-10.8)
[2017-10-06 18:15] LABS: PLATELET COUNT 402 10x3/uL (130-400)
[2017-10-06 18:24] LABS: CREATININE - SERUM 2.1 mg/dL (0.6-1.3)
== END | disposition home or self-care (01) ==
LOC: D.LABREF 17:54
PROVIDERS: Student in an Organized Health Care Education/Training Program
DX: N10 Acute pyelonephritis (principal)

== ENCOUNTER 2017-10-09 07:02 | Day surgery (SDC) | payer MEDICARE, BC ==
[~2017-10-09] VITALS: Ht 172.7 cm; Wt 74.8 kg
--- NOTE | ~2017-10-09 | OP ---
PATIENT NAME: RADHA PABLO MEDICAL RECORD: [id number] :43 LOCATION:[facility] ADMISSION DATE: SURGEON: ANTWON SHAH MD DATE OF OPERATION: 10/09/2017 SURGEON: Antwon Shah MD ANESTHESIA: General anesthesia by Wil Schulz CRNA DIAGNOSES: Infected right renal stones with extended spectrum beta-lactamase positive Escherichia coli. PROCEDURES: Cystoscopy, right ureteral stent insertion 6-Armenian x 24 cm with string attached. FINDINGS: Three small radiodense stones about 4-mm at most per stone seen in the right kidney. Single ureteral orifices bilaterally. No bladder tumors seen. BLOOD LOSS: None. CLINICAL HISTORY: This is a 72-year-old female who has an ongoing E. coli, ESBL positive UTI. The source of her infection was thought to be infected right renal stones. She had a right PCNL to remove large right renal stones recently. However, there were 2 or 3 small stones that I could not remove with my access. She comes today to have lithotripsy to smash up the remaining stones. She will have a right ureteral stent inserted prior to lithotripsy. She continues to be on home IV Zosyn given by home care. We gave her a dose of Zosyn 3.75 mg today. DESCRIPTION OF PROCEDURE: The patient was given induction of general anesthesia. She was placed in the dorsal lithotomy position, prepped and draped. Cystoscopy was performed using a 21-Armenian cystoscope with 30-degree lens. Fluoroscopy revealed the radiodensities in the right renal area. Three small stones were seen. A Sensor wire was inserted up the right ureteral orifice up to the renal pelvis. Over the wire, we inserted a 6-Armenian x 24 cm ureteral stent. Once the stent was in correct position, the wire was completely withdrawn. The distal end of stent was pushed into the bladder using a pusher. The bladder was then emptied through the cystoscope and the scope was removed entirely. The string on the distal end of the stent was maintained and it hangs out of the urethra. The string was then taped to the suprapubic area with a small piece of Tegaderm. The patient will go later today to have lithotripsy done on these right renal stones. TRANSINT:[id number] Voice Confirmation ID: [id number] DOCUMENT ID: [id number] ANTWON SHAH MD at 1614 CC: [id number] DICTATION DATE: 10/09/17 1259 ASE CERTIFIED TECHNICIAN: 10/09/17 1606 [address] [place] [id number] [place] [id number]
--- NOTE | ~2017-10-09 | OP ---
PATIENT NAME: RADHA PABLO MEDICAL RECORD: [id number] :43 LOCATION:D.OPS ADMISSION DATE: SURGEON: MARK SHAH MD DATE OF OPERATION: 10/09/2017 SURGEON: Mark Shah MD ANESTHESIA: MAC by Lolly Felix CRNA DIAGNOSIS: Infected right renal stones with E. coli ESBL-positive bacteria. PROCEDURE: Right extracorporeal shock wave lithotripsy (ESWL). FINDINGS: Four to five radiodense right renal stones, the largest is about 4 mm in size. SPECIMENS: None. CLINICAL HISTORY: This is a 72-year-old female who recently had open heart surgery. She was found to have severe urinary tract infection with E. coli ESBL positive. She is currently on IV Zosyn. She was found to have multiple infected renal stones. The largest of these stones was removed with right percutaneous nephrolithotomy. There were few smaller stones that escaped the procedure. She is coming now to have lithotripsy to have these stones broken up and removed. Earlier today, she had a right ureteral stent insertion. She was given IV Zosyn for that procedure and no further antibiotics were given to her today. DESCRIPTION OF PROCEDURE: The patient was given IV sedation. She was placed on the treatment table. The stones were localized in 2 planes. We decided to focus our energies on the largest stone, which was about 4 mm in size. This was located in the lateral lower pole of the kidney. The stone was entirely broken up after 3000 shocks. The patient will be sent home today. She is requesting no pain medications. I will arrange for her to have repeat treatment with lithotripsy in 2 weeks' time to try to treat the remaining stones that are present. TRANSINT:[id number] Voice Confirmation ID: [id number] DOCUMENT ID: [id number] MARK SHAH MD at 2220 CC: [id number] DICTATION DATE: 10/09/17 1619 LIME SLAKER: 10/09/17 1852 [facility] 10/09/17 [place] [id number]
[2017-10-09 07:22] LABS: HEMATOCRIT 33.5 % (36.0-48.0); MCH 29.3 pg (26.0-34.0); MCHC 32.8 g/dL (31.0-37.0); MCV 89.3 fL (80.0-100.0); MEAN PLATELET VOLUME 9.9 fL (7.4-10.4); RBC 3.75 10x6/uL (4.00-5.40); RDW 18.1 % (11.5-14.5); WBC 6.6 10x3/uL (4.8-10.8)
[2017-10-09 07:53] LABS: ANION GAP 14.3 mmol/L (8-16); CALCIUM 8.9 mg/dL (8.5-10.1); CARBON DIOXIDE 24.5 mmol/L (21.0-32.0); CREATININE - SERUM 1.8 mg/dL (0.6-1.3); POTASSIUM - SERUM 3.8 mmol/L (3.5-5.1)
[2017-10-09 08:37] VITALS: BP 134/59; Ht 172.7 cm; Wt 74.8 kg
== END 2017-10-09 17:50 | disposition home or self-care (01) ==
LOC: D.OPS 07:02 → D.PAN 10:00 → D.OPS 17:50
PROVIDERS: Anesthesiology
DX: N20.0 Calculus of kidney (principal)

== ENCOUNTER → 2017-10-13 14:50 | Outpatient (CLI) | payer MEDICARE, BC ==
[2017-10-09 08:37] VITALS: BMI 25.1
[2017-10-13 15:43] LABS: BASOPHILS 0.6 % (0-2); CREATININE - SERUM 1.7 mg/dL (0.6-1.3); EOSINOPHILS 5.2 % (0-7); HEMATOCRIT 34.7 % (36.0-48.0); HEMOGLOBIN 11.5 g/dL (12-16); IMMATURE GRANULOCYTES 0.3 % (0-5); LYMPHOCYTES 19.5 % (15-50); MCH 29.3 pg (26.0-34.0); MCHC 33.1 g/dL (31.0-37.0); MCV 88.5 fL (80.0-100.0); MEAN PLATELET VOLUME 11.5 fL (7.4-10.4); MONOCYTES 7.6 % (2-11); NEUTROPHILS 66.8 % (40-80); PLATELET COUNT 349 10x3/uL (130-400); RBC 3.92 10x6/uL (4.00-5.40); RDW 17.8 % (11.5-14.5); WBC 7.1 10x3/uL (4.8-10.8)
== END | disposition home or self-care (01) ==
LOC: D.LABREF 14:50
PROVIDERS: Student in an Organized Health Care Education/Training Program
DX: N10 Acute pyelonephritis (principal)

== ENCOUNTER 2017-10-17 13:12 | Outpatient (CLI) | payer MEDICARE, BC ==
[2017-10-09 08:37] VITALS: BMI 25.1
== END 2017-10-17 14:00 | disposition home or self-care (01) ==
LOC: D.OPS 13:12
DX: N12 Tubulo-interstitial nephritis, not specified as acute or chronic (principal); Z01.812 Encounter for preprocedural laboratory examination

== ENCOUNTER 2017-10-23 10:59 | Day surgery (SDC) | payer MEDICARE, BC ==
[~2017-10-23] VITALS: Ht 172.7 cm; Wt 74.8 kg
--- NOTE | ~2017-10-23 | OP ---
PATIENT NAME: RADHA PABLO MEDICAL RECORD: [id number] :43 LOCATION:D.OPS ADMISSION DATE: SURGEON: MARK SHAH MD DATE OF OPERATION: 10/23/2017 SURGEON: Mark Shah MD ANESTHESIA: MAC. DIAGNOSIS: Infected right renal stones with ESBL positive E. coli. FINDINGS: About 8 small radiodense right renal stones. PROCEDURES: Right ESWL. SPECIMENS: None. CLINICAL HISTORY: This is a 72-year-old female recently had cardiac bypass surgery. She was found to have a UTI with E. coli, which is ESBL positive. She has been on IV ertapenem via home care. I performed a right PCNL on her and I removed some large lower pole renal stones. However, she has some remaining fragments of stone scattered in her kidney. She had right ESWL of the largest stone. She has not reported that any of the stone particles have passed out. She comes today to have another treatment of ESWL. Since she is on ertapenem IV at home, we did not give any further antibiotics. DESCRIPTION OF PROCEDURE: The patient was given IV sedation. She was placed in the supine position on the lithotripsy table. Fluoroscopy revealed about 8 radiodense stones that I could count. We treated the most lateral lower pole stone. The stone was extremely hard as all of her stones and most of the energy was used up just to seemingly split the stone in half. Towards the end of the case, we gave some remaining energy to a medial stone. I will see the patient in followup in 1 week's time with a KUB. If the stone burden has not appreciably diminished, we will have to figure out another way to get rid of the remaining infected stones. She may require another PCNL procedure. TRANSINT:[id number] Voice Confirmation ID: [id number] DOCUMENT ID: [id number] MARK SHAH MD at 0845 CC: [id number] DICTATION DATE: 10/23/17 1534 FLYER MAKER: 10/23/17 1718 [facility] 10/23/17 [place] [id number] [place] [address]
[2017-10-23 12:38] VITALS: BP 177/81; Ht 172.7 cm; Wt 74.8 kg
== END 2017-10-23 14:36 | disposition home or self-care (01) ==
LOC: D.OPS 10:59
DX: N20.0 Calculus of kidney (principal); B96.29 Other Escherichia coli [E. coli] as the cause of diseases classified elsewhere; Z95.1 Presence of aortocoronary bypass graft; Z01.812 Encounter for preprocedural laboratory examination

== ENCOUNTER → 2017-10-28 14:53 | Outpatient (CLI) | payer MEDICARE, BC ==
[2017-10-23 12:38] VITALS: BMI 25.1
[2017-10-28 15:29] LABS: BASOPHILS 0.5 % (0-2); EOSINOPHILS 5.6 % (0-7); HEMATOCRIT 35.4 % (36.0-48.0); HEMOGLOBIN 11.9 g/dL (12-16); IMMATURE GRANULOCYTES 0.2 % (0-5); LYMPHOCYTES 20.1 % (15-50); MCH 29.1 pg (26.0-34.0); MCHC 33.6 g/dL (31.0-37.0); MCV 86.6 fL (80.0-100.0); MEAN PLATELET VOLUME 12.1 fL (7.4-10.4); MONOCYTES 9.4 % (2-11); NEUTROPHILS 64.2 % (40-80); PLATELET COUNT 308 10x3/uL (130-400); RBC 4.09 10x6/uL (4.00-5.40); RDW 16.6 % (11.5-14.5); WBC 10.9 10x3/uL (4.8-10.8)
[2017-10-28 15:46] LABS: ANION GAP 12.6 mmol/L (8-16); CALCIUM 8.5 mg/dL (8.5-10.1); CARBON DIOXIDE 25.2 mmol/L (21.0-32.0); CREATININE - SERUM 1.6 mg/dL (0.6-1.3); POTASSIUM - SERUM 3.8 mmol/L (3.5-5.1)
== END | disposition home or self-care (01) ==
LOC: D.LABREF 14:53
PROVIDERS: Student in an Organized Health Care Education/Training Program
DX: N10 Acute pyelonephritis (principal)

== ENCOUNTER → 2017-11-04 15:47 | Outpatient (CLI) | payer MEDICARE, BC ==
[2017-10-23 12:38] VITALS: BMI 25.1
[2017-11-04 16:34] LABS: BASOPHILS 0.3 % (0-2); EOSINOPHILS 8.3 % (0-7); HEMATOCRIT 37.3 % (36.0-48.0); HEMOGLOBIN 12.6 g/dL (12-16); IMMATURE GRANULOCYTES 0.1 % (0-5); LYMPHOCYTES 30.4 % (15-50); MCHC 33.8 g/dL (31.0-37.0); MCV 85.7 fL (80.0-100.0); MEAN PLATELET VOLUME 11.7 fL (7.4-10.4); MONOCYTES 6.9 % (2-11); RBC 4.35 10x6/uL (4.00-5.40); RDW 15.7 % (11.5-14.5); WBC 8.8 10x3/uL (4.8-10.8)
[2017-11-04 16:35] LABS: PLATELET COUNT 398 10x3/uL (130-400)
[2017-11-04 16:43] LABS: CREATININE - SERUM 1.9 mg/dL (0.6-1.3)
== END | disposition home or self-care (01) ==
LOC: D.LABREF 15:47
PROVIDERS: Student in an Organized Health Care Education/Training Program
DX: N10 Acute pyelonephritis (principal)

== ENCOUNTER → 2017-11-05 10:57 | Outpatient (CLI) | payer MEDICARE, BC ==
[2017-10-23 12:38] VITALS: BMI 25.1
== END | disposition home or self-care (01) ==
LOC: D.CT 10:57
DX: N20.0 Calculus of kidney (principal)

== ENCOUNTER → 2017-11-10 21:16 | Outpatient (CLI) | payer MEDICARE, BC ==
[2017-10-23 12:38] VITALS: BMI 25.1
[2017-11-10 21:53] LABS: BASOPHILS 0.6 % (0-2); EOSINOPHILS 6.7 % (0-7); HEMATOCRIT 37.8 % (36.0-48.0); HEMOGLOBIN 12.7 g/dL (12-16); IMMATURE GRANULOCYTES 0.1 % (0-5); LYMPHOCYTES 29.1 % (15-50); MCH 28.8 pg (26.0-34.0); MCHC 33.6 g/dL (31.0-37.0); MCV 85.7 fL (80.0-100.0); MEAN PLATELET VOLUME 11.9 fL (7.4-10.4); MONOCYTES 7.9 % (2-11); NEUTROPHILS 55.6 % (40-80); PLATELET COUNT 322 10x3/uL (130-400); RBC 4.41 10x6/uL (4.00-5.40); RDW 16.1 % (11.5-14.5); WBC 9.3 10x3/uL (4.8-10.8)
[2017-11-10 22:06] LABS: CREATININE - SERUM 1.9 mg/dL (0.6-1.3)
== END | disposition home or self-care (01) ==
LOC: D.LABREF 21:16
PROVIDERS: Student in an Organized Health Care Education/Training Program
DX: N12 Tubulo-interstitial nephritis, not specified as acute or chronic (principal)

== ENCOUNTER 2017-11-27 08:17 | Day surgery (SDC) | payer MEDICARE, BC ==
[~2017-11-27] VITALS: Ht 172.7 cm; Wt 72.6 kg
--- NOTE | ~2017-11-27 | OP ---
PATIENT NAME: RADHA PABLO MEDICAL RECORD: [id number] :43 LOCATION:D.OPS ADMISSION DATE: SURGEON: ANTWON SHAH MD DATE OF OPERATION: 11/27/2017 SURGEON: Antwon Shah MD ANESTHESIA: TIVA by Merrick Mccullough CRNA DIAGNOSES: Retained right ureteral stent, Escherichia coli extended-spectrum beta-lactamases positive urinary tract infection. PROCEDURE: Cystoscopy and ureteral stent removal. FINDINGS: Retained right ureteral stent. SPECIMENS: Right ureteral stent. BLOOD LOSS: None. CLINICAL HISTORY: This is a 72-year-old female who has ongoing chronic E. coli ESBL positive UTIs. She was found to have an infected right renal stone. These were removed with right percutaneous nephrolithotomy. I thought there may be residual stones left and she had a right ureteral stent inserted and she was treated with lithotripsy. The stones did not appear to break up on followup KUB. 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 Therefore, we brought her back to have her stent removed. However, the patient had in the meantime taken scissors and cut the string attached to the stent. Therefore, when she came to the office to have the stent removed, we had nothing to remove the stent with. She comes today to have cystoscopy to remove the stent. Her urine still shows signs of infection even though she is on ongoing suppressive antibiotics. She was given IV antibiotics today and she was placed in the dorsal lithotomy position. Cystoscopy was performed. The stent was seen, and grasping forceps were used and the stent was entirely removed. The patient was then sent home. I will see her back in 2 weeks' time to recheck the urine to see if the infection has cleared up. TRANSINT:[id number] Voice Confirmation ID: [id number] DOCUMENT ID: [id number] ANTWON SHAH MD at 1714 CC: [id number] DICTATION DATE: 11/27/17 1537 MACHINE LOAD CLERK: 11/27/17 1548 REG [facility] [address] [place] [address]
[2017-11-27 08:40] LABS: BASOPHILS 0.5 % (0-2); EOSINOPHILS 6.2 % (0-7); HEMATOCRIT 34.3 % (36.0-48.0); HEMOGLOBIN 11.5 g/dL (12-16); IMMATURE GRANULOCYTES 0.3 % (0-5); LYMPHOCYTES 18.7 % (15-50); MCH 27.8 pg (26.0-34.0); MCHC 33.5 g/dL (31.0-37.0); MCV 82.9 fL (80.0-100.0); MEAN PLATELET VOLUME 10.9 fL (7.4-10.4); MONOCYTES 8.5 % (2-11); NEUTROPHILS 65.8 % (40-80); RBC 4.14 10x6/uL (4.00-5.40); RDW 16.4 % (11.5-14.5); WBC 8.7 10x3/uL (4.8-10.8)
[2017-11-27 08:44] LABS: PLATELET COUNT 237 10x3/uL (130-400)
[2017-11-27 08:48] LABS: APPEARANCE CLEAR (CLEAR); BILIRUBIN NEGATIVE (NEGATIVE); COLOR YELLOW (YELLOW); GLUCOSE NEGATIVE (NEGATIVE); KETONE NEGATIVE (NEGATIVE); NITRITE NEGATIVE (NEGATIVE); PROTEIN 1+ mg/dL (NEGATIVE); SPECIFIC GRAVITY 1.015 (1.005-1.020); UROBILINOGEN NORMAL (NORMAL)
[2017-11-27 08:49] LABS: BACTERIA MANY /hpf (NONE SEEN); EPITHELIAL CELLS 0-5 /hpf (0-5); YEAST >1+ /hpf (NONE SEEN)
[2017-11-27 08:50] LABS: AMORPHOUS SEDIMENT <1+ /lpf (NONE SEEN); MUCUS <1+ /lpf (NONE SEEN)
[2017-11-27 08:51] LABS: INR 1.2 (0.85-1.17); PROTIME 14.8 SECONDS (11.6-15.0)
[2017-11-27 08:54] LABS: ANION GAP 14.5 mmol/L (8-16); CALCIUM 8.6 mg/dL (8.5-10.1); CARBON DIOXIDE 21.3 mmol/L (21.0-32.0); CREATININE - SERUM 1.8 mg/dL (0.6-1.3); POTASSIUM - SERUM 3.8 mmol/L (3.5-5.1)
[2017-11-27] MEDS ORDERED: CELEXA20 MG PO (09:39)
[2017-11-27 09:58] VITALS: BP 161/66; Ht 172.7 cm; Wt 72.6 kg
== END 2017-11-27 17:35 | disposition home or self-care (01) ==
LOC: D.OPS 08:17 → D.PAN 10:45 → D.OPS 11:15
PROVIDERS: Anesthesiology
DX: T83.593A Infection and inflammatory reaction due to other urinary stents, initial encounter (principal); N39.0 Urinary tract infection, site not specified; B96.29 Other Escherichia coli [E. coli] as the cause of diseases classified elsewhere; Z01.812 Encounter for preprocedural laboratory examination

== ENCOUNTER → 2017-12-03 12:38 | Outpatient (CLI) | payer MEDICARE, BC ==
[2017-11-27 09:58] VITALS: BMI 24.3
[~2017-12-03 12:38] MED LIST changes: +FUROSEMIDE20 MG PO; +FUROSEMIDE40 MG PO
[2017-12-03 13:11] LABS: HEMATOCRIT 33.2 % (36.0-48.0); MCHC 33.1 g/dL (31.0-37.0); MCV 81.6 fL (80.0-100.0); MEAN PLATELET VOLUME 11.3 fL (7.4-10.4); RBC 4.07 10x6/uL (4.00-5.40); RDW 16.3 % (11.5-14.5); WBC 8.3 10x3/uL (4.8-10.8)
[2017-12-03 13:14] LABS: ALBUMIN 3.2 g/dL (3.4-5.0); ANION GAP 15.6 mmol/L (8-16); BILIRUBIN - TOTAL 0.67 mg/dL (0.2-1.3); CALCIUM 8.8 mg/dL (8.5-10.1); CARBON DIOXIDE 21.1 mmol/L (21.0-32.0); CREATININE - SERUM 1.7 mg/dL (0.6-1.3); POTASSIUM - SERUM 3.7 mmol/L (3.5-5.1); PROTEIN - SERUM 7.5 g/dL (6.4-8.2)
== END | disposition home or self-care (01) ==
LOC: D.RAD 08:00
PROVIDERS: Thoracic Surgery (Cardiothoracic Vascular Surgery)
DX: J91.8 Pleural effusion in other conditions classified elsewhere (principal); D64.9 Anemia, unspecified

== ENCOUNTER 2017-12-10 05:40 | Outpatient (CLI) | payer MEDICARE, BC ==
[~2017-12-10] VITALS: Ht 172.7 cm; Wt 75.0 kg
[~2017-12-10 05:40] MED LIST changes: -FUROSEMIDE20 MG PO; -FUROSEMIDE40 MG PO
[2017-12-10 06:12] LABS: BASOPHILS 0.3 % (0-2); EOSINOPHILS 4.2 % (0-7); HEMATOCRIT 35.8 % (36.0-48.0); IMMATURE GRANULOCYTES 0.2 % (0-5); LYMPHOCYTES 21.2 % (15-50); MCH 27.3 pg (26.0-34.0); MCHC 33.5 g/dL (31.0-37.0); MCV 81.4 fL (80.0-100.0); MEAN PLATELET VOLUME 10.8 fL (7.4-10.4); MONOCYTES 8.8 % (2-11); NEUTROPHILS 65.3 % (40-80); PLATELET COUNT 332 10x3/uL (130-400); RDW 16.8 % (11.5-14.5); WBC 8.7 10x3/uL (4.8-10.8)
[2017-12-10 06:36] LABS: APTT 27.8 SECONDS (22.8-39.4); INR 1.21 (0.85-1.17); PROTIME 14.8 SECONDS (11.6-15.0)
[2017-12-10 06:39] LABS: ANION GAP 19.1 mmol/L (8-16); POTASSIUM - SERUM 3.1 mmol/L (3.5-5.1)
[2017-12-10] MEDS ORDERED: FUROSEMIDE40 MG PO (06:39)
[2017-12-10] MEDS ORDERED: FUROSEMIDE20 MG PO (06:39)
[2017-12-10 06:41] VITALS: BP 133/75; Ht 172.7 cm; Wt 75.0 kg
[2017-12-10 12:37] LABS: PROTEIN - BODY FLUID 2.9 G/DL
[2017-12-10 14:40] LABS: EOS BF 2 %; MACROPHAGES BF 14 %; MESOTHELIALS BF 1 %; NEUT - BF 9 %
== END 2017-12-10 15:25 | disposition home or self-care (01) ==
LOC: D.SP 05:40 → D.RAD 08:00 → D.US 08:30 → D.RAD 08:30 → D.SP 15:25
PROVIDERS: Radiology Vascular & Interventional Radiology; Thoracic Surgery (Cardiothoracic Vascular Surgery)
DX: I50.41 Acute combined systolic (congestive) and diastolic (congestive) heart failure (principal); Z95.1 Presence of aortocoronary bypass graft; Z01.812 Encounter for preprocedural laboratory examination

== ENCOUNTER → 2017-12-17 18:31 | Outpatient (CLI) | payer MEDICARE, BC ==
[2017-12-10 06:41] VITALS: BMI 25.1
[~2017-12-17 18:31] MED LIST changes: +FUROSEMIDE20 MG PO; +FUROSEMIDE40 MG PO
== END | disposition home or self-care (01) ==
LOC: D.LABREF 18:31
DX: D72.829 Elevated white blood cell count, unspecified (principal)

== ENCOUNTER → 2018-01-07 09:11 | Outpatient (CLI) | payer MEDICARE, BC ==
[2017-12-10 06:41] VITALS: BMI 25.1
[2018-01-07 09:48] LABS: HEMATOCRIT 40.2 % (36.0-48.0); HEMOGLOBIN 13.7 g/dL (12-16); MCH 27.4 pg (26.0-34.0); MCHC 34.1 g/dL (31.0-37.0); MCV 80.4 fL (80.0-100.0); MEAN PLATELET VOLUME 10.2 fL (7.4-10.4); RDW 17.3 % (11.5-14.5)
[2018-01-07 10:00] LABS: ALBUMIN 3.9 g/dL (3.4-5.0); ANION GAP 13.7 mmol/L (8-16); BILIRUBIN - TOTAL 0.56 mg/dL (0.2-1.3); CALCIUM 9.4 mg/dL (8.5-10.1); CARBON DIOXIDE 27.6 mmol/L (21.0-32.0); CREATININE - SERUM 1.8 mg/dL (0.6-1.3); POTASSIUM - SERUM 3.3 mmol/L (3.5-5.1); PROTEIN - SERUM 8.6 g/dL (6.4-8.2)
== END | disposition home or self-care (01) ==
LOC: D.LAB 09:11
PROVIDERS: Thoracic Surgery (Cardiothoracic Vascular Surgery)
DX: I25.10 Atherosclerotic heart disease of native coronary artery without angina pectoris (principal); D64.9 Anemia, unspecified; J90 Pleural effusion, not elsewhere classified

== ENCOUNTER 2019-04-22 07:47 | Day surgery (SDC) | payer MEDICARE, BC ==
[~2019-04-22] VITALS: Ht 172.7 cm; Wt 63.5 kg
[~2019-04-22 07:47] MED LIST changes: -LEVOXYL125 MCG PO; +LEVOXYL150 MCG PO; +SODIUM BICARBO325 MG PO
[2019-04-22 08:16] LABS: ANION GAP 13.1 mmol/L (8-16); CARBON DIOXIDE 27.6 mmol/L (21.0-32.0); CREATININE - SERUM 2.3 mg/dL (0.6-1.3); POTASSIUM - SERUM 3.7 mmol/L (3.5-5.1)
[2019-04-22 08:20] LABS: HEMATOCRIT 36.8 % (36.0-48.0); HEMOGLOBIN 12.4 g/dL (12-16); MCH 28.1 pg (26.0-34.0); MCHC 33.7 g/dL (31.0-37.0); MCV 83.4 fL (80.0-100.0); MEAN PLATELET VOLUME 11.1 fL (7.4-10.4); RBC 4.41 10x6/uL (4.00-5.40); RDW 17.5 % (11.5-14.5); WBC 7.6 10x3/uL (4.8-10.8)
--- NOTE | 2019-04-22 08:40 | NUR ---
DUE TO DETECTION OF LOW RISK OF SUICIDE ATTEMPT, SUICIDE PREVENTION HANDOUT GIVEN TO PATIENT AND DAUGHTER AT THIS TIME
[2019-04-22] MEDS ORDERED: RINVOQ PO (08:43)
[2019-04-22 08:56] VITALS: Ht 172.7 cm; Wt 63.5 kg
--- NOTE | 2019-04-23 08:54 | OP ---
PATIENT NAME: RADHA PABLO MEDICAL RECORD: [id number] :43 LOCATION:D.OPS ADMISSION DATE: SURGEON: MARK SHAH MD DATE OF OPERATION: 04/22/2019 SURGEON: Mark Shah MD ANESTHESIA: General anesthesia by Radha Casillas CRNA DIAGNOSIS: Infected right renal stones times 4 largest is 7 mm in size. PROCEDURES: 1. Cystoscopy, right ureteral stent insertion 6-Amharic x 24 cm with string attached. 2. Right extracorporeal shock wave lithotripsy (ESWL) times 3000 shocks. BLOOD LOSS: None. CLINICAL HISTORY: This is a 73-year-old female with recurrent E. coli, ESBL positive UTI due to infected renal stones. She has been treated with right PCNL and then lithotripsy of residual stones in 2018. The last UTI that we have was in 12/2017 when she grew VRE. She has now developed another urinary tract infection. The CT scan shows multiple right renal stones, the largest of which is 6.6 mm in size. There are also multiple calcifications seen on the KUB. Some of these seemed to be vascular calcifications. She comes now to have the stones treated with lithotripsy. SHE IS ALLERGIC TO CODEINE AND SULFA. She was given ampicillin and sulbactam IV laborer prestressed concrete to the OR. Her urine culture that we obtained in the office had grown mixed contamination. DESCRIPTION OF PROCEDURE: The patient was placed on the treatment table and fluoroscopy revealed the stone to be radiodense. She was then given induction of general anesthesia. The stones were targeted in 2 planes starting from the most medial one and then we worked outwards laterally. Overall, all 4 visible stones that were seen on fluoroscopy were treated and they were seen to break up. While the lithotripsy was proceeding she was [facility] position. She was prepped and draped. A 21-Amharic cystoscope was used for visualization. The right ureteral orifice was entered into with a Sensor wire. The wire was pushed up into the renal pelvis. Over the wire, we inserted a 24 x 6-Amharic right ureteral stent. Once the stent was in correct position, the wire was withdrawn entirely and the stent was pushed into the bladder using a pusher. The bladder was then emptied through the cystoscope sheath and the scope was removed. The string on the distal end of stent is maintained and it hangs out of the urethra. It was taped to the suprapubic region with a piece of Tegaderm. I will see the patient in followup in 2 weeks' time with a KUB to determine stone clearance. TRANSINT:[id number] Voice Confirmation ID: [id number] DOCUMENT ID: [id number] OPERATIVE REPORT [id number] RADHA PABLO, MARK Garcia MD at 0854 CC: [id number] DICTATION DATE: 04/22/19 1331 JEWEL BEARING BROACHER: 04/22/192000 [facility] 04/22/19 [facility] [address] [place] [address]
== END 2019-04-22 15:35 | disposition home or self-care (01) ==
LOC: D.OPS 07:47 → D.PAN 11:00 → D.OPS 12:45
PROVIDERS: Anesthesiology; ATTEND Urology
DX: N20.0 Calculus of kidney (principal); E07.9 Disorder of thyroid, unspecified; Z95.1 Presence of aortocoronary bypass graft; I27.20 Pulmonary hypertension, unspecified; E11.9 Type 2 diabetes mellitus without complications; N30.00 Acute cystitis without hematuria

== ENCOUNTER → 2019-05-07 10:45 | Outpatient (CLI) | payer MEDICARE, BC ==
[2019-04-22 08:56] VITALS: BMI 21.3
[~2019-05-07 10:45] MED LIST changes: +RINVOQ PO
== END | disposition home or self-care (01) ==
LOC: D.RAD 10:30
PROVIDERS: ATTEND Urology
DX: N20.0 Calculus of kidney (principal)

== ENCOUNTER → 2019-05-10 19:17 | Outpatient (CLI) | payer MEDICARE, BC ==
[2019-04-22 08:56] VITALS: BMI 21.3
== END | disposition home or self-care (01) ==
LOC: D.LABREF 19:17
PROVIDERS: ATTEND Urology
DX: N39.0 Urinary tract infection, site not specified (principal)

== ENCOUNTER → 2019-05-18 17:22 | Outpatient (CLI) | payer MEDICARE, BC ==
[2019-04-22 08:56] VITALS: BMI 21.3
== END | disposition home or self-care (01) ==
LOC: D.LABREF 17:22
PROVIDERS: ATTEND Urology
DX: N39.0 Urinary tract infection, site not specified (principal)

== ENCOUNTER → 2019-09-07 10:43 | Outpatient (CLI) | payer MEDICARE, BC ==
[2019-04-22 08:56] VITALS: BMI 21.3
== END | disposition home or self-care (01) ==
LOC: D.HCCECHO 10:30
PROVIDERS: ATTEND Internal Medicine Cardiovascular Disease
DX: I25.10 Atherosclerotic heart disease of native coronary artery without angina pectoris (principal)

== ENCOUNTER 2019-12-04 20:09 | Emergency (ER) | payer MEDICARE, BC ==
[~2019-12-04] VITALS: Ht 172.7 cm; Wt 68.2 kg
[2019-12-04 20:24] VITALS: Ht 172.7 cm; Wt 68.2 kg
[2019-12-04 21:52] LABS: BASOPHILS 0.5 % (0-2); EOSINOPHILS 0.2 % (0-7); HEMATOCRIT 38.3 % (36.0-48.0); HEMOGLOBIN 12.7 g/dL (12-16); IMMATURE GRANULOCYTES 0.2 % (0-5); MCH 26.7 pg (26.0-34.0); MCHC 33.2 g/dL (31.0-37.0); MCV 80.6 fL (80.0-100.0); MEAN PLATELET VOLUME 10.3 fL (7.4-10.4); MONOCYTES 15.1 % (2-11); RBC 4.75 10x6/uL (4.00-5.40); RDW 16.5 % (11.5-14.5); WBC 5.6 10x3/uL (4.8-10.8)
[2019-12-04 21:57] LABS: PLATELET COUNT 189 10x3/uL (130-400)
[2019-12-04 22:03] LABS: ANION GAP 13.3 mmol/L (8-16); CALCIUM 8.8 mg/dL (8.5-10.1); CARBON DIOXIDE 22.7 mmol/L (21.0-32.0); CREATININE - SERUM 2.2 mg/dL (0.6-1.3)
[2019-12-04 22:06] LABS: BILIRUBIN NEGATIVE (NEGATIVE); KETONE NEGATIVE (NEGATIVE); NITRITE NEGATIVE (NEGATIVE); UROBILINOGEN NORMAL mg/dL (< 2)
[2019-12-04 22:09] LABS: ALBUMIN 3.7 g/dL (3.4-5.0); BILIRUBIN - TOTAL 0.55 mg/dL (0.2-1.3); PROTEIN - SERUM 8.1 g/dL (6.4-8.2)
[2019-12-04 22:42] VITALS: BP 121/54
== END 2019-12-04 22:42 | disposition home or self-care (01) ==
LOC: D.ER 20:09
PROVIDERS: Emergency Medicine
DX: F41.9 Anxiety disorder, unspecified (principal); R53.83 Other fatigue; E11.9 Type 2 diabetes mellitus without complications; I10 Essential (primary) hypertension; I25.10 Atherosclerotic heart disease of native coronary artery without angina pectoris; N19 Unspecified kidney failure

== ENCOUNTER 2019-12-13 11:34 | Inpatient (IN) | payer MEDICARE, BC ==
[~2019-12-13] VITALS: Ht 172.7 cm; Wt 63.0 kg
[2019-12-13] VITALS (7 sets, daily range): BP systolic 116–188; BP diastolic 63–80
[2019-12-13 13:04] LABS: CALC OSMOLALITY 293 mosm/kg (275-300); CARBON DIOXIDE 21.7 mmol/L (21.0-32.0); CHLORIDE - SERUM 103 mmol/L (98-107); CREATININE - SERUM 2.7 mg/dL (0.6-1.3); POTASSIUM - SERUM 4.1 mmol/L (3.5-5.1); SODIUM 138 mmol/L (136-145); UREA NITROGEN 52 mg/dL (7-18); eGFR NON AFRICAN AMERICAN 18 mL/min (90-120)
[2019-12-13 13:05] LABS: GLUCOSE 171 mg/dL (74-106)
[2019-12-13 13:17] LABS: ALKALINE PHOSPHATASE 71 U/L (30-120); ALT (SGPT) 31 U/L (10-68); BILIRUBIN - TOTAL 0.51 mg/dL (0.2-1.3); C-REACTIVE PROTEIN 6.6 mg/dL (0.0-0.9); CREATINE KINASE 554 UL (21-215); PRO BNP 2912 pg/mL (0-450); PROTEIN - SERUM 7.9 g/dL (6.4-8.2); TROPONIN-I < 0.017 ng/mL (0.000-0.060)
[2019-12-13 13:26] LABS: APTT 21.7 SECONDS (22.8-39.4); INR 1.1 (0.85-1.17); PROTIME 14.1 SECONDS (11.6-15.0)
[2019-12-13 13:38] LABS: ALBUMIN 3.4 g/dL (3.4-5.0)
--- NOTE | 2019-12-13 13:48 | NUR ---
PT ATTEMPTS TO USE BEDPAN, PERICARE GIVEN FOR DRIED ON STOOL. UNABLE TO VOID, ASSISTED TO BSC, URINE OBTAINED AND SENT TO LAB PT HAS INCREASED WORK OF BREATHING WITH ACTIVITY
[2019-12-13 14:02] LABS: BASOPHILS 0 % (0-2); EOSINOPHILS 0 % (0-7); HEMATOCRIT 39.9 % (36.0-48.0); HEMOGLOBIN 13.7 g/dL (12-16); IMMATURE GRANULOCYTES 0.2 % (0-5); LYMPHOCYTES 12.5 % (15-50); MCH 26.6 pg (26.0-34.0); MCHC 34.3 g/dL (31.0-37.0); MCV 77.5 fL (80.0-100.0); MEAN PLATELET VOLUME 10.9 fL (7.4-10.4); MONOCYTES 9.9 % (2-11); NEUTROPHILS 77.4 % (40-80); PLATELET COUNT 207 10x3/uL (130-400); RBC 5.15 10x6/uL (4.00-5.40); RDW 15.9 % (11.5-14.5); WBC 5.7 10x3/uL (4.8-10.8)
[2019-12-13 14:39] LABS: BILIRUBIN NEGATIVE (NEGATIVE); KETONE NEGATIVE (NEGATIVE); NITRITE NEGATIVE (NEGATIVE); UROBILINOGEN NORMAL mg/dL (< 2); WHITE CELLS - URINE 0-5 HPF (0-4)
[2019-12-13 14:40] LABS: BACTERIA MODERATE HPF (NONE SEEN); GRANULAR CAST OCC LPF (NONE SEEN); YEAST <1+ /hpf (NONE SEEN)
[2019-12-13 14:46] LABS: CKMB 5.8 U/L (0.0-3.6)
--- NOTE | 2019-12-13 15:10 | NUR ---
COVID SWAB OBTAINED AND TAKEN TO LAB
--- NOTE | 2019-12-13 15:28 | NUR ---
BARBARA DUDLEY COMPLETED 50ML.
--- NOTE | 2019-12-13 17:14 | NUR ---
ZITHROMAX COMPLETED, 250ML IN
--- NOTE | 2019-12-13 19:20 | NUR ---
REPORT TO ONCOMING SHIFT
--- NOTE | 2019-12-13 19:53 | NUR ---
BOLUS NS INFUSION COMPLETE AT THIS TIME.
[2019-12-14] VITALS (20 sets, daily range): BP systolic 122–183; BP diastolic 51–88; Ht 172.7 cm; Wt 63.0 kg
[2019-12-14 05:27] LABS: BASOPHILS 0 % (0-2); EOSINOPHILS 0 % (0-7); HEMATOCRIT 38.6 % (36.0-48.0); HEMOGLOBIN 12.8 g/dL (12-16); IMMATURE GRANULOCYTES 0.2 % (0-5); LYMPHOCYTES 5.6 % (15-50); MCH 26.1 pg (26.0-34.0); MCHC 33.2 g/dL (31.0-37.0); MCV 78.6 fL (80.0-100.0); MEAN PLATELET VOLUME 10.8 fL (7.4-10.4); NEUTROPHILS 89.2 % (40-80); PLATELET COUNT 240 10x3/uL (130-400); RBC 4.91 10x6/uL (4.00-5.40); RDW 16.1 % (11.5-14.5)
[2019-12-14 05:28] LABS: WBC 8.1 10x3/uL (4.8-10.8)
[2019-12-14 05:33] LABS: ALBUMIN 2.8 g/dL (3.4-5.0); ANION GAP 13.9 mmol/L (8-16); BILIRUBIN - TOTAL 0.33 mg/dL (0.2-1.3); CALCIUM 8.2 mg/dL (8.5-10.1); CARBON DIOXIDE 23.3 mmol/L (21.0-32.0); POTASSIUM - SERUM 4.2 mmol/L (3.5-5.1); PROTEIN - SERUM 7.4 g/dL (6.4-8.2)
[2019-12-15] VITALS (24 sets, daily range): BP systolic 109–151; BP diastolic 49–79
[2019-12-15 04:52] LABS: BASOPHILS 0.1 % (0-2); EOSINOPHILS 0.1 % (0-7); HEMATOCRIT 36.2 % (36.0-48.0); HEMOGLOBIN 12.1 g/dL (12-16); IMMATURE GRANULOCYTES 0.3 % (0-5); LYMPHOCYTES 4.8 % (15-50); MCH 25.9 pg (26.0-34.0); MCHC 33.4 g/dL (31.0-37.0); MCV 77.4 fL (80.0-100.0); MEAN PLATELET VOLUME 11.4 fL (7.4-10.4); NEUTROPHILS 89.7 % (40-80); RBC 4.68 10x6/uL (4.00-5.40); RDW 16.2 % (11.5-14.5)
[2019-12-15 05:07] LABS: PLATELET COUNT 321 10x3/uL (130-400); WBC 13.9 10x3/uL (4.8-10.8)
[2019-12-15 05:35] LABS: ALBUMIN 2.8 g/dL (3.4-5.0); BILIRUBIN - TOTAL 0.43 mg/dL (0.2-1.3); CALCIUM 8.5 mg/dL (8.5-10.1); CREATININE - SERUM 1.6 mg/dL (0.6-1.3); MAGNESIUM - SERUM 2.3 mg/dL (1.8-2.4); PHOSPHOROUS 2.1 mg/dL (2.5-4.9); POTASSIUM - SERUM 3.7 mmol/L (3.5-5.1); PROTEIN - SERUM 7.3 g/dL (6.4-8.2)
[2019-12-15 05:40] LABS: ANION GAP 17.4 mmol/L (8-16); CARBON DIOXIDE 17.3 mmol/L (21.0-32.0)
--- NOTE | 2019-12-15 18:44 | NUR ---
NEVIN MOROCHO ON PHARMACY THE 1729 IVPB.
[2019-12-16] VITALS (21 sets, daily range): BP systolic 140–178; BP diastolic 64–83
--- NOTE | 2019-12-16 07:10 | NUR ---
RECEIVED REPORT ON PATIENT, EYES CLOSED, RESTRAINTS IN PLACE, NONREBREATHER HIGH FLOW IN PLACE. WILL ACCESS AND MONITOR FOR CHANGES THROUGHOUT DAY.
[2019-12-16 08:16] LABS: BASOPHILS 0.2 % (0-2); EOSINOPHILS 0 % (0-7); IMMATURE GRANULOCYTES 0.4 % (0-5); MONOCYTES 1.1 % (2-11)
[2019-12-16 08:19] LABS: HEMATOCRIT 36.4 % (36.0-48.0); HEMOGLOBIN 12.1 g/dL (12-16); LYMPHOCYTES 3.5 % (15-50); MCH 26.2 pg (26.0-34.0); MCHC 33.2 g/dL (31.0-37.0); MCV 78.8 fL (80.0-100.0); MEAN PLATELET VOLUME 11.3 fL (7.4-10.4); NEUTROPHILS 89.1 % (40-80); PLATELET COUNT 291 10x3/uL (130-400); RBC 4.62 10x6/uL (4.00-5.40); RDW 17.3 % (11.5-14.5); WBC 14.1 10x3/uL (4.8-10.8)
[2019-12-16 08:29] LABS: ALBUMIN 2.7 g/dL (3.4-5.0); ANION GAP 18.5 mmol/L (8-16); BILIRUBIN - TOTAL 0.45 mg/dL (0.2-1.3); CALCIUM 8.4 mg/dL (8.5-10.1); CARBON DIOXIDE 19.1 mmol/L (21.0-32.0); CREATININE - SERUM 1.3 mg/dL (0.6-1.3); POTASSIUM - SERUM 3.6 mmol/L (3.5-5.1); PROTEIN - SERUM 7.1 g/dL (6.4-8.2)
--- NOTE | 2019-12-16 11:08 | NUR ---
Nutrition follow-up: Pt in bed with NC in place; confused today per nurse. Diet: consistent cho low sodium PO intake is poor today Wt: 149# Labs reviewed RDN following.
[2019-12-17] VITALS (24 sets, daily range): BP systolic 100–207; BP diastolic 62–130
--- NOTE | 2019-12-17 12:34 | NUR ---
Nutrition follow-up: Pt with O2 in place; unable to eat Labs reviewed Wt: 148# Pt not meeting estimated energy needs at this time Recommend ProcalAmine PPN @ 75 ml/hr until po diet improves for TF can start RDN following.
[2019-12-17 16:00] LABS: BASOPHILS 0.1 % (0-2); EOSINOPHILS 0 % (0-7); HEMATOCRIT 40.2 % (36.0-48.0); HEMOGLOBIN 13.6 g/dL (12-16); IMMATURE GRANULOCYTES 0.6 % (0-5); LYMPHOCYTES 4.4 % (15-50); MCH 26.3 pg (26.0-34.0); MCHC 33.8 g/dL (31.0-37.0); MCV 77.8 fL (80.0-100.0); MEAN PLATELET VOLUME 10.6 fL (7.4-10.4); NEUTROPHILS 92.9 % (40-80); PLATELET COUNT 338 10x3/uL (130-400); RBC 5.17 10x6/uL (4.00-5.40); RDW 16.2 % (11.5-14.5)
[2019-12-17 16:13] LABS: ANION GAP 15.1 mmol/L (8-16); CALCIUM 8.7 mg/dL (8.5-10.1); CREATININE - SERUM 1.4 mg/dL (0.6-1.3); POTASSIUM - SERUM 3.6 mmol/L (3.5-5.1)
[2019-12-17 16:14] LABS: CARBON DIOXIDE 28.5 mmol/L (21.0-32.0)
[2019-12-17 16:20] LABS: WBC 10.2 10x3/uL (4.8-10.8)
--- NOTE | 2019-12-17 16:20 | NUR ---
UPDATED PT'S SON.
[2019-12-18] VITALS (24 sets, daily range): BP systolic 149–213; BP diastolic 66–100
[2019-12-18 06:20] LABS: BASOPHILS 0.2 % (0-2); EOSINOPHILS 0.1 % (0-7); HEMOGLOBIN 12.8 g/dL (12-16); IMMATURE GRANULOCYTES 0.8 % (0-5); LYMPHOCYTES 10.9 % (15-50); MCH 26.2 pg (26.0-34.0); MCHC 33.7 g/dL (31.0-37.0); MCV 77.7 fL (80.0-100.0); MEAN PLATELET VOLUME 11.2 fL (7.4-10.4); MONOCYTES 3.8 % (2-11); NEUTROPHILS 84.2 % (40-80); PLATELET COUNT 325 10x3/uL (130-400); RBC 4.89 10x6/uL (4.00-5.40); RDW 16.3 % (11.5-14.5); WBC 10.3 10x3/uL (4.8-10.8)
[2019-12-18 06:52] LABS: BILIRUBIN - TOTAL 0.53 mg/dL (0.2-1.3); CALCIUM 8.7 mg/dL (8.5-10.1); CARBON DIOXIDE 24.7 mmol/L (21.0-32.0); CREATININE - SERUM 1.1 mg/dL (0.6-1.3); MAGNESIUM - SERUM 1.9 mg/dL (1.8-2.4); PHOSPHOROUS 2.4 mg/dL (2.5-4.9); POTASSIUM - SERUM 3.7 mmol/L (3.5-5.1); PROTEIN - SERUM 7.5 g/dL (6.4-8.2)
--- NOTE | 2019-12-18 13:26 | NUR ---
HYDRALAZINE GIVEN X 1 FOR HTN. HAS NO COMPLAINTS. REMAINS RESTRAINED S/T PULLING AT LINES. WAS ADVANCED THIS MORNING FROM 15 L NRB TO 15 L HFNC WITH 15 L NRB.
[2019-12-19] VITALS (24 sets, daily range): BP systolic 127–206; BP diastolic 69–117
[2019-12-19 07:51] LABS: BASOPHILS 0.2 % (0-2); EOSINOPHILS 0.1 % (0-7); HEMATOCRIT 39.4 % (36.0-48.0); HEMOGLOBIN 13.4 g/dL (12-16); IMMATURE GRANULOCYTES 0.8 % (0-5); LYMPHOCYTES 9.2 % (15-50); MCH 26.7 pg (26.0-34.0); MCV 78.5 fL (80.0-100.0); MEAN PLATELET VOLUME 10.5 fL (7.4-10.4); MONOCYTES 3.7 % (2-11); PLATELET COUNT 356 10x3/uL (130-400); RBC 5.02 10x6/uL (4.00-5.40); RDW 16.6 % (11.5-14.5)
[2019-12-19 07:56] LABS: WBC 14.5 10x3/uL (4.8-10.8)
[2019-12-19 08:22] LABS: ANION GAP 18.2 mmol/L (8-16); BILIRUBIN - TOTAL 0.64 mg/dL (0.2-1.3); CALCIUM 9.1 mg/dL (8.5-10.1); CREATININE - SERUM 1.3 mg/dL (0.6-1.3); MAGNESIUM - SERUM 2.1 mg/dL (1.8-2.4); PHOSPHOROUS 2.4 mg/dL (2.5-4.9); POTASSIUM - SERUM 3.2 mmol/L (3.5-5.1); PROTEIN - SERUM 7.4 g/dL (6.4-8.2)
[2019-12-20] VITALS (19 sets, daily range): BP systolic 149–200; BP diastolic 68–99
[2019-12-20 04:51] LABS: BASOPHILS 0.1 % (0-2); EOSINOPHILS 0 % (0-7); HEMATOCRIT 38.1 % (36.0-48.0); HEMOGLOBIN 12.6 g/dL (12-16); IMMATURE GRANULOCYTES 0.6 % (0-5); LYMPHOCYTES 6.1 % (15-50); MCH 25.8 pg (26.0-34.0); MCHC 33.1 g/dL (31.0-37.0); MCV 78.1 fL (80.0-100.0); MEAN PLATELET VOLUME 10.8 fL (7.4-10.4); MONOCYTES 3.1 % (2-11); NEUTROPHILS 90.1 % (40-80); PLATELET COUNT 354 10x3/uL (130-400); RBC 4.88 10x6/uL (4.00-5.40); RDW 16.4 % (11.5-14.5); WBC 11.8 10x3/uL (4.8-10.8)
[2019-12-20 05:22] LABS: ALBUMIN 2.8 g/dL (3.4-5.0); ANION GAP 14.8 mmol/L (8-16); BILIRUBIN - TOTAL 0.55 mg/dL (0.2-1.3); CALCIUM 9.1 mg/dL (8.5-10.1); CARBON DIOXIDE 28.4 mmol/L (21.0-32.0); CREATININE - SERUM 1.3 mg/dL (0.6-1.3); POTASSIUM - SERUM 3.2 mmol/L (3.5-5.1); PROTEIN - SERUM 7.6 g/dL (6.4-8.2)
[2019-12-20 06:46] LABS: MAGNESIUM - SERUM 2.2 mg/dL (1.8-2.4)
[2019-12-20 06:47] LABS: PHOSPHOROUS 3.1 mg/dL (2.5-4.9)
--- NOTE | 2019-12-20 07:30 | NUR ---
PT RESTING COMFORTABLE WITH BIPAP IN PLACE, NO ACUTE DISTRESS NOTED, PT FOLLOWS SIMPLE COMMANDS, POSITIONED FOR COMFORT, WILL MONITOR
--- NOTE | 2019-12-20 12:00 | NUR ---
RESTING WITH EYES CLOSED, BIPAP IN PLACE, WILL MONITOR
--- NOTE | 2019-12-20 12:42 | NUR ---
Nutrition follow-up: Pt with BIPAP in place constantly at this time Diet: low sodium; pt unable to eat 2/2 bipap Labs reviewed Wt: 148# Pt not meeting estimated nutritional needs at this time. Recommend PEG tube placement and TF if pt unable to eat within [address]N following.
--- NOTE | 2019-12-20 14:25 | NUR ---
resting with bipap in place, no acute distress noted, will jen
--- NOTE | 2019-12-20 15:45 | NUR ---
speech therapist in with patient at this time
--- NOTE | 2019-12-20 17:15 | NUR ---
PT REPOSITIONED FOR COMFORT, ANSWERS QUESTIONS APPROPIATELY, DENIES PAIN, BIPAP IN PLACE, WILL MONITOR
--- NOTE | 2019-12-20 18:00 | NUR ---
COMPLETE BATH GIVEN AND LINENS CHANGED, PT POSITIONED FOR COMFORT, BIPAP IN PLACE, WILL MONITOR
[2019-12-21] VITALS (21 sets, daily range): BP systolic 101–190; BP diastolic 50–110
[2019-12-21 04:21] LABS: BASOPHILS 0.1 % (0-2); EOSINOPHILS 0.1 % (0-7); HEMATOCRIT 37.5 % (36.0-48.0); HEMOGLOBIN 12.5 g/dL (12-16); IMMATURE GRANULOCYTES 0.6 % (0-5); LYMPHOCYTES 10.6 % (15-50); MCH 26.2 pg (26.0-34.0); MCHC 33.3 g/dL (31.0-37.0); MCV 78.5 fL (80.0-100.0); MEAN PLATELET VOLUME 10.7 fL (7.4-10.4); MONOCYTES 2.7 % (2-11); NEUTROPHILS 85.9 % (40-80); PLATELET COUNT 332 10x3/uL (130-400); RBC 4.78 10x6/uL (4.00-5.40); RDW 16.5 % (11.5-14.5); WBC 14.3 10x3/uL (4.8-10.8)
[2019-12-21 04:41] LABS: ALBUMIN 2.7 g/dL (3.4-5.0); ANION GAP 11.5 mmol/L (8-16); BILIRUBIN - TOTAL 0.6 mg/dL (0.2-1.3); CALCIUM 9.3 mg/dL (8.5-10.1); CARBON DIOXIDE 27.9 mmol/L (21.0-32.0); CREATININE - SERUM 1.3 mg/dL (0.6-1.3); POTASSIUM - SERUM 3.4 mmol/L (3.5-5.1); PROTEIN - SERUM 7.4 g/dL (6.4-8.2)
--- NOTE | 2019-12-21 07:35 | NUR ---
RESTING COMFORTABLE WITH BIPAP IN PLACE, FOLLOWS SIMPLE COMMANDS, POSITIONED FOR COMFORT, WILL MONITOR
--- NOTE | 2019-12-21 12:00 | NUR ---
REPOSITIONED FOR COMFORT, BIPAP IN PLACE, WILL MONITOR
[2019-12-22] VITALS (13 sets, daily range): BP systolic 105–171; BP diastolic 53–99
[2019-12-22 05:07] LABS: BASOPHILS 0 % (0-2); EOSINOPHILS 0.1 % (0-7); HEMATOCRIT 37.4 % (36.0-48.0); HEMOGLOBIN 12.1 g/dL (12-16); IMMATURE GRANULOCYTES 0.5 % (0-5); MCH 25.5 pg (26.0-34.0); MCHC 32.4 g/dL (31.0-37.0); MCV 78.9 fL (80.0-100.0); MEAN PLATELET VOLUME 10.9 fL (7.4-10.4); MONOCYTES 2.7 % (2-11); NEUTROPHILS 84.7 % (40-80); PLATELET COUNT 325 10x3/uL (130-400); RBC 4.74 10x6/uL (4.00-5.40); RDW 16.6 % (11.5-14.5); WBC 13.8 10x3/uL (4.8-10.8)
[2019-12-22 05:29] LABS: ALBUMIN 2.5 g/dL (3.4-5.0); BILIRUBIN - DIRECT 0.09 mg/dL (0.00-0.30); BILIRUBIN - INDIRECT 0.27 mg/dL (0.00-1.00); BILIRUBIN - TOTAL 0.36 mg/dL (0.2-1.3); CALCIUM 9.1 mg/dL (8.5-10.1); CARBON DIOXIDE 28.7 mmol/L (21.0-32.0); CREATININE - SERUM 1.3 mg/dL (0.6-1.3); POTASSIUM - SERUM 3.7 mmol/L (3.5-5.1)
--- NOTE | 2019-12-22 07:45 | NUR ---
LAYING IN BED WITH BIPAP IN PLACE, FOLLOWS SIMPLE COMMANDS BUT SOMEWHAT CONFUSED, POSITIONED FOR COMFORT, WILL MONITOR
--- NOTE | 2019-12-22 10:20 | NUR ---
Nutrition follow-up: Pt sleeping with bipap in place Diet ordered but no intake recorded Labs reviewed Wt: 138# Recommend starting ProcalAmine PPN @ 75 ml/hr until po intake begins/improves RDN following.
--- NOTE | 2019-12-22 12:00 | NUR ---
RESTING WITH BIPAP IN PLACE, NO ACUTE DISTRESS NOTED, WILL MONITOR
--- NOTE | 2019-12-22 16:32 | NUR ---
HOSPICE NURSE HERE MISHEL MURILLO. PT ACCEPTED TO HOSPICE. FAMILY HERE TALKING TO MISHEL MURILLO.
--- NOTE | 2019-12-22 18:46 | MORECARE ---
CASE MANAGEMENT DISCHARGE SUMMARY PATIENT: RADHA PABLO KRIS UNIT: [id number] ADM DATE: 12/13/19 AGE: 74 : 43 SEX: F ROOM/BED: D.2316 AUTHOR: MITUL MOY PHYSICIAN: REFERRING PHYSICIAN: DINORAH DELANEY MD DATE OF SERVICE: 12/22/19 Discharge Plan Patient Name: RADHA PABLO Facility: [facility]:[place] : 1945 Planned Disposition: Hospice Medical Facility Anticipated Discharge Date: Discharge Date: 12/22/2019 Expected LOS: Initial Reviewer: [email or web address] Initial Review Date: 12/13/2019 Generated: 12/22/19 7:46 pm DCP- Discharge Planning Updated by [email or web address]: Kathleen Keating on 12/15/19 6:[address] CM was made aware that patient's is also in hospital at this time. Patient and are both confused at this time. CM was able to get a contact number for Shannan Echeverria [phone] (step-daughter) Raina Santana [phone] (daughter) for contacts and decision makers. External Providers External Provider: [facility] in Next Contact Date: Service Request Date: Service Type: Resolution: Reviewer: Comments: Patient Name: RADHA PABLO Page 05228 at 1846 All edits/amendments must be made on the electronic document DICTATION DATE: 12/22/191845 FISHING REEL ASSEMBLER: MARY ANNE 12/22/191845 RPT#: [id number] DC DATE:12/22/19 STATUS: DIS IN [facility] [address] [place] [address] END OF REPORT
--- NOTE | 2019-12-22 18:54 | MORECARE ---
CASE MANAGEMENT DISCHARGE SUMMARY PATIENT: RADHA PABLO KRIS UNIT: [id number] ADM DATE: 12/13/19 AGE: 74 : 43 SEX: F ROOM/BED: D.2316 AUTHOR: CHINMAY,DOC PHYSICIAN: REFERRING PHYSICIAN: DINORAH DELANEY MD DATE OF SERVICE: 12/22/19 Discharge Plan Patient Name: RADHA PABLO Facility: [facility]:[place] : 1945 Planned Disposition: Hospice Medical Facility Anticipated Discharge Date: Discharge Date: 12/22/2019 Expected LOS: Initial Reviewer: [email or web address] Initial Review Date: 12/13/2019 Generated: 12/22/19 7:53 pm DCP- Discharge Planning Updated by [email or web address]: Kathleen Keating on 12/15/19 6:[address] CM was made aware that patient's is also in hospital at this time. Patient and are both confused at this time. CM was able to get a contact number for Maribell Echeverria [phone] (step-daughter) Raina Santana [phone] (daughter) for contacts and decision makers. DCPIA - Discharge Planning Initial Assessment Updated by [email or web address]: Kathleen Keating on 12/22/19 6:47 pm * Is the patient Alert and Oriented? No * How many steps to enter\exit or inside your home? * PCP DANIEL * Pharmacy [facility] * Preadmission Environment Home with Family * ADLs Independent * Other Equipment WALKER , CANE * List name and contact numbers for known caregivers / representatives who currently or will assist patient after discharge: RAINA HEYDI - DAUGHTER- [phone] MARIBELL ECHEVERRIA -STEP DAUGHTER - [phone] DUANE PABLO - SPOUSE - [phone] * Verbal permission to speak to the caregivers and representatives has been obtained from the patient. Yes * Community resources currently utilized None * Additional services required to return to the preadmission environment? No * Can the patient safely return to the preadmission environment? Yes * Has this patient been hospitalized within the prior 30 days at any hospital? No Last DP export: 12/22/19 5:46 Patient Name: RADHA PABLO Page 04859 at 1854 All edits/amendments must be made on the electronic document DICTATION DATE: 12/22/191852 CREDIT SUPPORT COUNSELOR: MARY ANNE 12/22/191852 RPT#: [id number] DC DATE:12/22/19 STATUS: DIS IN [facility] [address] [place] [address] END OF REPORT
--- NOTE | 2019-12-22 19:01 | MORECARE ---
CASE MANAGEMENT DISCHARGE SUMMARY PATIENT: RADHA DUMONT KRIS UNIT: [id number] ADM DATE: 12/13/19 AGE: 74 : 43 SEX: F ROOM/BED: D.2316 AUTHOR: CHINMAY,DOC PHYSICIAN: REFERRING PHYSICIAN: DINORAH DELANEY MD DATE OF SERVICE: 12/22/19 Discharge Plan Patient Name: RADHA DUMONT Facility: [facility]:[place] : 1945 Planned Disposition: Hospice Medical Facility Anticipated Discharge Date: Discharge Date: 12/22/2019 Expected LOS: Initial Reviewer: [email or web address] Initial Review Date: 12/13/2019 Generated: 12/22/19 8:01 pm Comments DCP- Discharge Planning Updated by [email or web address]: Kathleen Keating on 12/22/19 6:[address] LATE ENTRY 12/21/19 Patient Name: RADHA DUMONT Admission Status: ER Accout number: [id number] Admission Date: 12-13-2019 : 1945 Admission Diagnosis:PNEUMONIA, UNSPECIFIED ORGANISM Attending: DINORAH DELANEY Current LOS: 8 Anticipated DC Date: Planned Disposition: Hospice Medical Facility Primary Insurance: MEDICARE A & B Discharge Planning Comments: CM called and spoke with patient's daughter Raina Santana [phone] regarding d/c planning. Raina expressed concerns regarding her mother and stated that the patient has a living will and she didn't want any extraordinary measures. Raina was concerned because [facility] Dumont patient's is being evaluated for Hospice out on Med 2. CM explained that patient has made some improvements in her 02 demand. Raina requested a Hospice Eval with [facility] for Friday. CM received order for eval and contacted [facility] and faxed records. CM will continue to follow and assist as needed with discharge planning / needs. Crowning Inspector: Kathleen Keating DCP- Discharge Planning Updated by [email or web address]: Kathleen Keating on 12/15/19 6:[address] CM was made aware that patient's is also in hospital at this time. Patient and are both confused at this time. CM was able to get a contact number for Maribell Echeverria [phone] (step-daughter) Raina Santana [phone] (daughter) for contacts and decision makers. DCPIA - Discharge Planning Initial Assessment Updated by [email or web address]: Kathleen Keating on 12/22/19 6:47 pm * Is the patient Alert and Oriented? No * How many steps to enter\exit or inside your home? * PCP DANIEL * Pharmacy [facility] * Preadmission Environment Home with Family * ADLs Independent * Other Equipment WALKER , CANE * List name and contact numbers for known caregivers / representatives who currently or will assist patient after discharge: RAINA SANTANA - DAUGHTER- [phone] MARIBELL ECHEVERRIA -STEP DAUGHTER - [phone] GAMAL DUMONT - SPOUSE - [phone] * Verbal permission to speak to the caregivers and representatives has been obtained from the patient. Yes * Community resources currently utilized None * Additional services required to return to the preadmission environment? No * Can the patient safely return to the preadmission environment? Yes * Has this patient been hospitalized within the prior 30 days at any hospital? No Last DP export: 12/22/19 5:54 Patient Name: RADHA DUMONT Page 29208 at 1901 All edits/amendments must be made on the electronic document DICTATION DATE: 12/22/191900 WINDOW TRIMMER: MARY ANNE 12/22/191900 RPT#: [id number] DC DATE:12/22/19 STATUS: DIS IN [facility] [address] [place] [address] END OF REPORT
--- NOTE | 2019-12-22 19:08 | MORECARE ---
CASE MANAGEMENT DISCHARGE SUMMARY PATIENT: RADHA DUMONT KRIS UNIT: [id number] ADM DATE: 12/13/19 AGE: 74 : 41 SEX: F ROOM/BED: D.2316 AUTHOR: CHINMAY,DOC PHYSICIAN: REFERRING PHYSICIAN: DINORAH DELANEY MD DATE OF SERVICE: 12/22/19 Discharge Plan Patient Name: RADHA DUMONT Facility: [facility]:Alexander : 1945 Planned Disposition: Hospice Medical Facility Anticipated Discharge Date: Discharge Date: 12/22/2019 Expected LOS: Initial Reviewer: [email or web address] Initial Review Date: 12/13/2019 Generated: 12/22/19 8:08 pm Comments DCP- Discharge Planning Updated by [email or web address]: Kathleen Keating on 12/22/19 6:[address] LATE ENTRY 12/21/19 Patient Name: RADHA DUMONT Admission Status: ER Accout number: [id number] Admission Date: 12-13-2019 : 1945 Admission Diagnosis:PNEUMONIA, UNSPECIFIED ORGANISM Attending: DINORAH DELANEY Current LOS: 8 Anticipated DC Date: Planned Disposition: Hospice Medical Facility Primary Insurance: MEDICARE A & B Discharge Planning Comments: CM called and spoke with patient's daughter Raina Santana [phone] regarding d/c planning. Raina expressed concerns regarding her mother and stated that the patient has a living will and she didn't want any extraordinary measures. Raina was concerned because Gam[facility] Dumont patient's is being evaluated for Hospice out on Med 2. CM explained that patient has made some improvements in her 02 demand. Raina requested a Hospice Eval with [facility] for Friday. CM received order for eval and contacted [facility] and faxed records. CM will continue to follow and assist as needed with discharge planning / needs. Outsole Beveler: Kathleen Keating DCP- Discharge Planning Updated by [id number]: Kathleen Keating on 12/15/19 6:[address] CM was made aware that patient's is also in hospital at this time. Patient and are both confused at this time. CM was able to get a contact number for Maribell Echeverria [phone] (step-daughter) Raina Santana [phone] (daughter) for contacts and decision makers. DCPIA - Discharge Planning Initial Assessment Updated by [email or web address]: Kathleen Keating on 12/22/19 6:47 pm * Is the patient Alert and Oriented? No * How many steps to enter\exit or inside your home? * PCP DANIEL * Pharmacy [facility] * Preadmission Environment Home with Family * ADLs Independent * Other Equipment WALKER , CANE * List name and contact numbers for known caregivers / representatives who currently or will assist patient after discharge: RAINA SANTANA - DAUGHTER- [phone] MARIBELL ECHEVERRIA -STEP DAUGHTER - [phone] GAMAL DUMONT - SPOUSE - [phone] * Verbal permission to speak to the caregivers and representatives has been obtained from the patient. Yes * Community resources currently utilized None * Additional services required to return to the preadmission environment? No * Can the patient safely return to the preadmission environment? Yes * Has this patient been hospitalized within the prior 30 days at any hospital? No Coverage Notice Reviewer: [id number] - Kathleen Keating Notice Issued Date-Time: 12/21/2019 16:00 Notice Type: Patient Choice Letter Notice Delivered To: Family Member Relationship to Patient: Daughter International Controller Name: Raina Santana Delivery Method: PHONE - Phone July Days: Prior Verbal Notification: Recipient Understood Notice: Yes Recipient Signature: Med Rec Note Co-signed by Attending: Coverage Notice Comment: requesting [facility] Eval Last DP export: 12/22/19 6:01 Patient Name: RADHA DUMONT Page 20009 at 1908 All edits/amendments must be made on the electronic document DICTATION DATE: 12/22/191907 IRON HANDLER: MARY ANNE 12/22/191907 RPT#: [id number] DC DATE:12/22/19 STATUS: DIS IN [facility] [address] [place] [address] END OF REPORT
== END 2019-12-22 16:35 | disposition hospice, inpatient (51) | DRG 177 ==
LOC: D.ER 11:34 → D.ICU 14:24 → D.EDHOLD 14:24 → D.ICU 23:25
PROVIDERS: Emergency Medicine; Family Medicine; Internal Medicine; Internal Medicine Nephrology; Internal Medicine Pulmonary Disease; ADMIT Family Medicine; ATTEND Family Medicine
PROC: 5A19054 Respiratory Ventilation, Single, Nonmechanical (ICD-10-PCS; principal; 2019-12-14)
PROC: XW033E5 Introduction of Remdesivir Anti-infective into Peripheral Vein, Percutaneous Approach, New Technology Group 5 (ICD-10-PCS; 2019-12-21)
DX: U07.1 COVID-19 (principal); J18.9 Pneumonia, unspecified organism; J96.01 Acute respiratory failure with hypoxia; J12.89 Other viral pneumonia; G93.41 Metabolic encephalopathy; N17.9 Acute kidney failure, unspecified; N39.0 Urinary tract infection, site not specified; I12.9 Hypertensive chronic kidney disease with stage 1 through stage 4 chronic kidney disease, or unspecified chronic kidney disease; E11.22 Type 2 diabetes mellitus with diabetic chronic kidney disease; N18.32 Chronic kidney disease, stage 3b; I25.10 Atherosclerotic heart disease of native coronary artery without angina pectoris; E03.9 Hypothyroidism, unspecified; M06.9 Rheumatoid arthritis, unspecified; K21.9 Gastro-esophageal reflux disease without esophagitis; F32.9 Major depressive disorder, single episode, unspecified; F41.9 Anxiety disorder, unspecified; H35.30 Unspecified macular degeneration; Z86.73 Personal history of transient ischemic attack (TIA), and cerebral infarction without residual deficits; Z79.84 Long term (current) use of oral hypoglycemic drugs; Z87.891 Personal history of nicotine dependence; E11.21 Type 2 diabetes mellitus with diabetic nephropathy; J44.9 Chronic obstructive pulmonary disease, unspecified; I27.20 Pulmonary hypertension, unspecified; W18.11XA Fall from or off toilet without subsequent striking against object, initial encounter; I15.0 Renovascular hypertension; E83.39 Other disorders of phosphorus metabolism